=== PATIENT | female | born 1985 | race Caucasian/White ===

== ENCOUNTER → 2020-12-12 08:03 | Outpatient (BNVA) | payer MEDICAID, SELFPAY | PROVIDERS: Family Provider Family Medicine; PCP Family Medicine; Visit Provider Psychiatry & Neurology Psychiatry | DX: F41.1 Generalized anxiety disorder (principal); F33.1 Major depressive disorder, recurrent, moderate; F17.200 Nicotine dependence, unspecified, uncomplicated; F10.10 Alcohol abuse, uncomplicated | CPT/HCPCS: 99204 ==

== ENCOUNTER → 2021-01-30 10:28 | Outpatient (BNVA) | payer MEDICAID, SELFPAY | PROVIDERS: Family Provider Family Medicine; PCP Family Medicine; Visit Provider Psychiatry & Neurology Psychiatry | DX: F33.1 Major depressive disorder, recurrent, moderate (principal); F41.1 Generalized anxiety disorder; F10.10 Alcohol abuse, uncomplicated; F17.200 Nicotine dependence, unspecified, uncomplicated | CPT/HCPCS: 99214 ==

== ENCOUNTER → 2021-02-15 15:40 | Outpatient (BNVA) | payer OTHER, SELFPAY | PROVIDERS: Family Provider Family Medicine; PCP Family Medicine; Visit Provider Psychiatry & Neurology Psychiatry | DX: F33.1 Major depressive disorder, recurrent, moderate (principal); F41.1 Generalized anxiety disorder; F17.200 Nicotine dependence, unspecified, uncomplicated; F10.10 Alcohol abuse, uncomplicated | CPT/HCPCS: 99214 ==

== ENCOUNTER → 2021-02-19 11:28 | Outpatient (BNVA) | payer OTHER, SELFPAY | PROVIDERS: Family Provider Family Medicine; PCP Family Medicine; Visit Provider Psychiatry & Neurology Psychiatry | DX: F33.1 Major depressive disorder, recurrent, moderate (principal); F41.1 Generalized anxiety disorder; F10.10 Alcohol abuse, uncomplicated; F17.200 Nicotine dependence, unspecified, uncomplicated | CPT/HCPCS: 96372; 99213 ==

== ENCOUNTER → 2021-03-22 10:55 | Outpatient (BNVA) | payer OTHER, SELFPAY | PROVIDERS: Family Provider Family Medicine; PCP Family Medicine; Visit Provider Psychiatry & Neurology Psychiatry | DX: F33.1 Major depressive disorder, recurrent, moderate (principal); F41.1 Generalized anxiety disorder; F10.10 Alcohol abuse, uncomplicated; F17.200 Nicotine dependence, unspecified, uncomplicated | CPT/HCPCS: 96372; 99213 ==

== ENCOUNTER → 2021-05-02 10:24 | Outpatient (BNVA) | payer OTHER, SELFPAY | PROVIDERS: Family Provider Family Medicine; PCP Family Medicine; Visit Provider Psychiatry & Neurology Psychiatry | DX: F33.1 Major depressive disorder, recurrent, moderate (principal); F41.1 Generalized anxiety disorder; F10.10 Alcohol abuse, uncomplicated; F17.200 Nicotine dependence, unspecified, uncomplicated | CPT/HCPCS: 96372; 99214 ==

== ENCOUNTER → 2021-05-21 13:18 | Outpatient (BNVA) | payer OTHER, SELFPAY | PROVIDERS: Family Provider Family Medicine; PCP Family Medicine; Visit Provider Psychiatry & Neurology Psychiatry | DX: F10.10 Alcohol abuse, uncomplicated (principal) | CPT/HCPCS: 80053; 84443; 85025 ==

== ENCOUNTER → 2021-06-04 10:15 | Outpatient (BNVA) | payer OTHER, SELFPAY | PROVIDERS: Family Provider Family Medicine; PCP Family Medicine; Visit Provider Psychiatry & Neurology Psychiatry | DX: F10.10 Alcohol abuse, uncomplicated (principal) | CPT/HCPCS: 96372; 99214 ==

== ENCOUNTER → 2021-07-05 10:02 | Outpatient (BNVA) | payer OTHER, SELFPAY | PROVIDERS: Family Provider Family Medicine; PCP Family Medicine; Visit Provider Psychiatry & Neurology Psychiatry | DX: F33.1 Major depressive disorder, recurrent, moderate (principal); F41.1 Generalized anxiety disorder; F10.10 Alcohol abuse, uncomplicated; F17.200 Nicotine dependence, unspecified, uncomplicated | CPT/HCPCS: 96372; 99213 ==

== ENCOUNTER 2021-07-10 15:20 | Outpatient (CLI) | payer MEDICAID, SELFPAY ==
--- NOTE | 2021-07-10 15:30 | US_ITS ---
WS: [id number] TRANSVAGINAL PELVIC ULTRASOUND HISTORY: HSIL ON CYSTOLOGIC SMEAR OR CERVIX COMPARISON: None available. Uterus: 7.0 cm x 4.8 cm x 3.8 cm. Normal size anteverted uterus. No fibroid or mass. Small nabothian cysts. Endometrium: 0.4 cm. Normal size endometrium. Very mild heterogeneity within the endometrium. There a re a few small adjacent calcifications. No mass. Right ovary: 3.7 cm x 4.1 cm x 2.0 cm. Mildly enlarged ovary with a minimally complex cyst. The cyst measures 2.8 x 3.3 x 1.5 cm. There are a few septations within the cyst. Left ovary: 2.0 cm x 1.4 cm x 2.1 cm. Normal size and vascularity, no cystic or solid masses. No free fluid. US/US transvaginal [id number] IMPRESSION: 1. Mildly heterogeneous endometrium but no mass. 2. Minimally complex RIGHT ovarian cyst measures 2.8 x 3.3 x 1.5 cm.
== END 2021-07-10 15:21 | disposition home or self-care (01) ==
LOC: US 15:21
PROVIDERS: PCP Family Medicine; Visit Provider Obstetrics & Gynecology
DX: N93.9 Abnormal uterine and vaginal bleeding, unspecified (principal); N83.201 Unspecified ovarian cyst, right side
CPT/HCPCS: 76830; 93976

== ENCOUNTER → 2021-08-02 11:12 | Outpatient (BNVA) | payer OTHER, MEDICAID, SELFPAY | PROVIDERS: PCP Family Medicine; Visit Provider Psychiatry & Neurology Psychiatry | DX: F33.1 Major depressive disorder, recurrent, moderate (principal); F41.1 Generalized anxiety disorder; F10.10 Alcohol abuse, uncomplicated; F17.200 Nicotine dependence, unspecified, uncomplicated | CPT/HCPCS: 96372; 99213 ==

== ENCOUNTER 2021-08-15 10:59 | Emergency (ER) | payer MEDICAID, SELFPAY ==
[2021-08-15 11:24] VITALS: BP 130/89; PULSE 99; RESP 16; TEMP 37.1; O2SAT 99
--- NOTE | 2021-08-15 11:34 | US_ITS ---
WS: [id number] ULTRASOUND PELVIS TECHNIQUE: Transabdominal and transvaginal. ULTRASOUND PELVIS LMP August 09, 2021 TECHNIQUE: Transabdominal. CLINICAL INFORMATION: eval for vag bleeding/ hx of cervical cancer COMPARISON: July 10, 2021 FINDINGS: Uterus Orientation: Anteverted. Size: 7.0 cm x 4.4 cm x 3.0 cm. Masses: None. Cervix: 2.4 cm. Endometrium: Normal. Endometrium thickness: 4.9 mm Adnexa: Multifollicular ovaries bilaterally. Right ovary size: cm x 3.1 cm x 2.8 cm. Left ovary size: 2.9 cm x 1.3 cm x 2.7 cm. Free fluid: None. Other findings: None. US/US pelvic with transvaginal IMPRESSION: 1. Normal uterus and endometrium. Endometrium measures 4.9 mm. 2. Incidental nabothian cysts in the cervix. 3. Both ovaries are normal in appearance. 4. No free fluid in the cul-de-sac.
--- NOTE | 2021-08-15 11:46 | W.ED.GENADLT ---
HPI - General Adult General: Chief complaint: Abdominal Pain Stated complaint: OVARIAN CYST RUPTURE/BLOODY URINE/N,V Time Seen by Provider: 08/15/21 11:29 History of Present Illness: HPI narrative: Patient is a 36-year-old female with a history of previously diagnosed R ovarian cyst, cervical cancer presenting to the emergency room with concerns of right-sided pelvic pain, vaginal bleeding, nausea/vomiting x5 days. Patient tells me that her period started around . Since then, patient has had right side of pelvic pain. Patient has noticed a new vaginal discharge. Currently not sexually active. Denies any foul-smelling discharge, hematuria/polyuria/history of pyelonephritis, prior history of kidney stones. Patient does not think that she is currently . Not currently sexually active. Since the onset of symptoms, patient has noticed decreased urine production and decreased p.o. intake. Denies any cough, runny nose, sore throat, malaise, generalized weakness, shortness of breath, chest pain, or palpitation or lightheadedness., Patient was found to have pelvic cyst on ultrasound in June. Patient had a recent biopsy done on 07/24/2020 one of her cervix which showed reemergence of low grade cervical acner. Onset:5 days ago Duration:5 days Location:home Severity:moderate Review of Systems Narrative: Constitutional: No fever, no chills. HEENT: No vision changes CV: No chest pain, no palpitations PULM: no cough, no dyspnea. GI: No abdominal pain, no N/V/D. : No dysuria, +R sided pelvic pain, +new vaginal discharge, +vaginal bleeding MSKEL: No muscle pain SKIN: No new rashes, no lesions. NEURO: No headache, no focal weakness. HEME: No visible bruises PSYCH: Normal mood PFSH ED PFSH: Medical History (Updated 08/15/21 @ 13:36 by Aniya Ribera MD) Psychiatric care Social History (Updated 12/12/20 @ 08:48 by Fermín Klein LPN) Smoking and tobacco status: current every day smoker cigarettes Packs smoked per day: 0.15 Years cigarettes smoked: 17 Quit status (tobacco): has tried quititng Number of times tried to quit tobacco: 4 Second hand smoke exposure: No Physical Exam Narrative: EXAM NARRATIVE: Head: Atraumatic Eyes: PERRL, conjunctiva without injection ENT: Mucous membrane moist NECK: Supple, ROM intact LUNGS: LCTAB, no crackles/rhonchi CV: RRR ABDOMEN: Soft, nontender in all quadrants EXTREMITY: Normal ROM SKIN: No rash or erythema NEURO: Awake and alert, no focal motor deficits PSYCH: Normal mood and affect Exam: Exam supervised by Nani. External genitalia wnl. No erythema around cervical os, os closed, +thick discharge oozing from the cervix, no bleeding. No CMT, +R adnexal tendernes, Course Vital Signs: Vital signs: Vital Signs Temperature 98.7 F 08/15/21 11:24 Pulse Rate 78 08/15/21 15:41 Respiratory Rate 16 08/15/21 13:00 Blood Pressure 124/76 08/15/21 15:41 Pulse Oximetry 96 08/15/21 15:41 MDM - General Adult MDM Narrative: Medical decision making narrative: 36-year-old female presenting to emergency room with complaints of pelvic pain, vaginal bleeding, nausea/vomiting x5 days. WBC of 6.1, hemoglobin 13.7. Potassium 2.7 status post repletion with IV potassium 2x 40 mEq of p.o. potassium. Vaginal ultrasound did not show any signs of any acute pathology including ovarian torsion, or acute pelvic inflammatory disease. At time, do not suspect patient has any intra-abdominal infection or surgical abdominal pathologies given normal WBC, normal abd exam, USER SUPPORT ANALYST SUPERVISOR symptoms no other focal complaints. I have given patient follow up with our rehabilitation caseworker to be seen by our outpatient USER SUPPORT ANALYST SUPERVISOR provider for evaluation of R sided pelvic pain. Patient aware of a call from our rehabilitation caseworker to schedule for appointment(s) and verbalizes understanding of the importance of following up. Rx zofran PRN nausea/vomiting, tylenol PRN pain Disposition: Discharge. Patient counseled regarding diagnostic impression, treatment plan. Patient given ED strict return precautions to return for continuation, worsening, or development of new symptoms. Instructed to f/u w/ PCP regarding symptoms today. Patient verbalized understanding. Lab Data: Labs: Lab Results 08/15/21 08/15/21 08/15/21 12:00 12:00 12:00 WBC 6.1 10^3/uL 10^3/ uL (4.0-10.0) RBC 4.65 10^6/uL 10^6 /uL (4.1-5.3) Hgb 13.7 g/dL g/dL (11.5-15.3) Hct 39.9 % % (37.0-47.0) MCV 85.8 fl fl (81-99) MCH 29.5 pg pg (28.0-34.0) MCHC 34.3 g/dL g/dL (30.0-36.0) RDW 13.9 % % (12.1-15.1) Plt Count 222 10^3/cmm 10^3 /cmm (130-400) MPV 11.7 fL H fL (7.4-10.4) Neut % (Auto) 65.5 % % Lymph % (Auto) 21.9 % % Sampson % (Auto) 11.2 % % Eos % (Auto) 0.3 % % Baso % (Auto) 0.8 % % Neut # (Auto) 3.96 10^3/uL 10^3 /uL (1.8-7.7) Lymph # (Auto) 1.3 10^3/uL 10^3/ uL (0.8-4.8) Sampson # (Auto) 0.7 10^3/uL 10^3/ uL (0.2-0.9) Eos # (Auto) 0.0 10^3/uL 10^3/ uL (0.0-0.8) Baso # (Auto) 0.1 10^3/uL 10^3/ uL (0.0-0.1) Nucleated RBC % (a uto) 0 % % Nucleated RBCs # 0.0 /100WBC /100W BC PT INR APTT Sodium Cancelled Potassium Cancelled Chloride Cancelled Carbon Dioxide Cancelled Anion Gap Cancelled BUN Cancelled Creatinine Cancelled GFR Calculation Cancelled Glucose Cancelled Calculated Osmolal ity Cancelled Calcium Cancelled Total Bilirubin Cancelled AST Cancelled ALT Cancelled Alkaline Phosphata se Cancelled Total Protein Cancelled Albumin Cancelled Globulin Cancelled Lipase Cancelled Urine Color Urine Appearance Urine pH Ur Specific Gravit y Urine Protein Urine Glucose (UA) Urine Ketones Urine Blood Urine Nitrate Urine Bilirubin Urine Urobilinogen Ur Leukocyte Babs ase Urine HCG, Qual Negative (Negative) 08/15/21 08/15/21 08/15/21 12:00 12:20 12:43 WBC RBC Hgb Hct MCV MCH MCHC RDW Plt Count MPV Neut % (Auto) Lymph % (Auto) Sampson % (Auto) Eos % (Auto) Baso % (Auto) Neut # (Auto) Lymph # (Auto) Sampson # (Auto) Eos # (Auto) Baso # (Auto) Nucleated RBC % (a uto) Nucleated RBCs # PT 13.70 SECONDS SEC ONDS (12.1-14.9) INR 1.02 (0.8-1.2) APTT 22.7 SECONDS L SE CONDS (23.9-36.7) Sodium 136 mmol/L mmol/L (136-145) Potassium 2.7 mmol/L L* mmo l/L (3.5-5.1) Chloride 97 mmol/L L mmol/ L (98-107) Carbon Dioxide 27 mmol/L mmol/L (22-29) Anion Gap 14.7 (5-19) BUN 15 mg/dL mg/dL (6-20) Creatinine 0.4 mg/dL L mg/dL (0.5-0.9) GFR Calculation 179.6 mL/min H mL /min (90-130) Glucose 85 mg/dL mg/dL (65-115) Calculated Osmolal ity 282 mOsm/kg L mOs m/kg (285-295) Calcium 7.9 mg/dL L mg/dL (8.5-10.5) Total Bilirubin 0.6 mg/dL mg/dL (0.15-1.2) AST 24 U/L U/L (0-32) ALT 15 U/L U/L (0-33) Alkaline Phosphata se 80 IU/L IU/L (35-105) Total Protein 6.1 g/dL L g/dL (6.6-8.7) Albumin 3.9 g/dL g/dL (3.5-5.2) Globulin 2.2 g/dL g/dL (1.3-4.6) Lipase 16 U/L U/L (13-60) Urine Color Yellow (Yellow) Urine Appearance Clear (CLEAR) Urine pH 9 H (5-7) Ur Specific Gravit y 1.010 (1.005-1.030) Urine Protein Neg (Negative) Urine Glucose (UA) Norm (Normal) Urine Ketones Negative (Negative) Urine Blood Neg (Negative) Urine Nitrate Negative (Negative) Urine Bilirubin Neg (Negative) Urine Urobilinogen 4 mg/dL H mg/dL (Negative) Ur Leukocyte Babs ase Negative (Negative) Urine HCG, Qual Imaging Data^: Other Imaging: Radiologist's impression: [id number] [place], [place] [id number] ReportSigned Patient: Stephanie Molina AUnit #: [id number]: [id number]#:[id number]/Sex: 36 / FADM Date: 08/15/21Loc: ERRoom/Bed:Attending Dr: Ordering Provider/Ordering MD: Aniya Ribera MD Date of Service: 08/15/21 Procedure(s): US pelvic with transvaginal Accession Number(s): [id number] Report Number: [id number] WS: [id number] ULTRASOUND PELVIS TECHNIQUE: Transabdominal and transvaginal. ULTRASOUND PELVIS LMP August 09, 2021 TECHNIQUE: Transabdominal. CLINICAL INFORMATION: eval for vag bleeding/ hx of cervical cancer COMPARISON: July 10, 2021 FINDINGS: Uterus Orientation: Anteverted. Size: 7.0 cm x 4.4 cm x 3.0 cm. Masses: None. Cervix: 2.4 cm. Endometrium: Normal. Endometrium thickness: 4.9 mm Adnexa: Multifollicular ovaries bilaterally. Right ovary size: cm x 3.1 cm x 2.8 cm. Left ovary size: 2.9 cm x 1.3 cm x 2.7 cm. Free fluid: None. Other findings: None. US/US pelvic with transvaginal IMPRESSION: 1. Normal uterus and endometrium. Endometrium measures 4.9 mm. 2. Incidental nabothian cysts in the cervix. 3. Both ovaries are normal in appearance. 4. No free fluid in the cul-de-sac. Dictated By:Jack Jesus MDSigned By:Jack Jesus MDSigned Date/Time:08/15/21 1546DD/ 154 Discharge Plan Discharge Patient Disposition: Home Clinical Impression: Pelvic pain, Hypokalemia Condition: Stable Prescriptions: New Zofran 4 mg tablet 4 mg PO TID PRN (Reason: nausea and vomiting) 4 Days Qty: 12 RF: 0 acetaminophen 500 mg tablet 500 mg PO Q6H PRN (Reason: pain) 5 Days Qty: 20 RF: 0 No Action montelukast 10 mg tablet 10 mg PO DAILY RF: 0 meloxicam 15 mg tablet 15 mg PO DAILY RF: 0 Flovent HFA 220 mcg/actuation HFA aerosol inhaler 1 puff inhalation BID RF: 0 celecoxib 200 mg capsule 200 mg PO BID RF: 0 cyclobenzaprine 10 mg tablet 10 mg PO BID PRN (Reason: muscle spasm) RF: 0 Combivent Respimat 20-100 mcg/actuation mist 1 puff inhalation QID PRNRF: 0 Vivitrol 380 mg suspension,extended rel recon 380 mg IM .monthly Qty: 1 RF: 2 propranolol 10 mg tablet 10 mg PO BID PRN (Reason: anxiety) Qty: 60 RF: 2 trazodone 100 mg tablet 200 mg PO .HS PRN (Reason: insomnia) Qty: 60 RF: 2 hydroxyzine HCl 50 mg tablet 50 mg PO QID PRN (Reason: anxiety) Qty: 120 RF: 2 fluoxetine [Prozac] 40 mg capsule 40 mg PO DAILY Qty: 30 RF: 2 clonidine HCl 0.1 mg tablet 0.1 mg PO DAILY Qty: 30 RF: 2 bupropion HCl [Wellbutrin XL] 300 mg tablet extended release 24 hr 300 mg PO QAM Qty: 30 RF: 2 gabapentin 400 mg capsule 400 mg PO TID Qty: 90 RF: 2 Discharge Orders: Discharge ED (Routine); Ordered 08/15/21 Ordered By: Aniya Ribera Referrals: Adrienne Malin DO [Primary Care Provider] - Discharge Diet: Advance as tolerated Discharge Activity: Resume usual activity Patient Instructions: Hypokalemia (ED) Activity Restrictions/Additional Instructions: Please follow-up with a USER SUPPORT ANALYST SUPERVISOR doctor for further evaluation of your symptoms. Please follow-up with a primary care provider for evaluation of your low potassium level. Our rehabilitation caseworker will have you follow-up with USER SUPPORT ANALYST SUPERVISOR provider in the next few days. You would be expected to have a phone call with our rehabilitation caseworker who will put you on the schedule. Come back to the emergency room if your pain is worse, had new discharge, fever/chills, any new or concerning complaints. Coding Level of Care Code ED Frame Trimmer for Shelbie eMrrill
[2021-08-15 12:05] LABS: Add Urine Microscopic? NO; Charge for UA Resulting for Rev
[2021-08-15 12:10] LABS: Basophils # 0.1 10^3/uL (0.0-0.1); Basophils % 0.8 %; Eosinophils % 0.3 %; Hematocrit 39.9 % (37.0-47.0); Hemoglobin 13.7 g/dL (11.5-15.3); Lymphocytes # 1.3 10^3/uL (0.8-4.8); Lymphocytes % 21.9 %; Mean Corpuscular HGB Conc 34.3 g/dL (30.0-36.0); Mean Corpuscular Hemoglobin 29.5 pg (28.0-34.0); Mean Corpuscular Volume 85.8 fl (81-99); Mean Platelet Volume 11.7 fL (7.4-10.4); Monocytes # 0.7 10^3/uL (0.2-0.9); Monocytes % 11.2 %; Neutrophils # 3.96 10^3/uL (1.8-7.7); Neutrophils % 65.5 %; Nucleated Red Blood Cells % 0 %; Platelet Count 222 10^3/cmm (130-400); Red Blood Count 4.65 10^6/uL (4.1-5.3); Red Cell Distribution Width 13.9 % (12.1-15.1); White Blood Count 6.1 10^3/uL (4.0-10.0)
[2021-08-15 12:17] LABS: Bilirubin Urine Neg (Negative); Blood Urine Neg (Negative); Glucose Urine UA Norm (Normal); Ketones Urine Negative (Negative); Leukocyte Esterase Urine Negative (Negative); Nitrate Urine Negative (Negative); Protein Urine Neg (Negative); Urine Appearance Clear (CLEAR); Urine Color Yellow (Yellow); Urobilinogen Urine 4 mg/dL (Negative); pH Urine 9 (5-7)
[2021-08-15] MEDS: ondansetron 2 mg/ML SDV 2 mL 4 MG IVP (12:30)
[2021-08-15] MEDS: acetaminophen 500 mg Tablet PO (12:30)
[2021-08-15] MEDS: sodium chloride 0.9% 1,000 ML 999 ML IV (12:30)
[2021-08-15 12:37] LABS: INR 1.02 (0.8-1.2)
[2021-08-15 12:38] LABS: Partial Thromboplastin Time 22.7 SECONDS (23.9-36.7)
[2021-08-15 13:00] VITALS: BP 127/86; PULSE 87; RESP 16; O2SAT 98
[2021-08-15 13:23] LABS: Alanine Aminotransferase 15 U/L (0-33); Albumin Level 3.9 g/dL (3.5-5.2); Alkaline Phosphatase 80 IU/L (35-105); Anion Gap 14.7 (5-19); Aspartate Amino Transferase 24 U/L (0-32); Blood Urea Nitrogen 15 mg/dL (6-20); Calcium 7.9 mg/dL (8.5-10.5); Carbon Dioxide 27 mmol/L (22-29); Chloride 97 mmol/L (98-107); Globulin 2.2 g/dL (1.3-4.6); Glomerular Filtration Rate 179.6 mL/min (90-130); Glucose 85 mg/dL (65-115); Lipase 16 U/L (13-60); Osmolality Calculated 282 mOsm/kg (285-295); Sodium 136 mmol/L (136-145); Total Bilirubin 0.6 mg/dL (0.15-1.2); Total Protein 6.1 g/dL (6.6-8.7)
[2021-08-15 13:32] LABS: Potassium 2.7 mmol/L (3.5-5.1)
[2021-08-15] MEDS: potassium chloride ER 20 mEq Tablet 40 MEQ PO ×2 (14:16)
[2021-08-15] MEDS: potassium chloride ER 10 mEq Tablet PO (14:16)
[2021-08-15 15:41] VITALS: BP 124/76; PULSE 78; O2SAT 96
--- NOTE | 2021-08-15 15:53 | DCPLANNER ---
winter sports manager had message to schedule a follow up appointment for patient with [facility]. winter sports manager called the [facility], spoke with Prieto, gave clinic patients information. winter sports manager was told that patients information would be printed and reviewed. Clinic will call patient with appointment information.
--- NOTE | 2021-08-29 07:54 | DCPLANNER ---
Addendum entered by Pippa Cazares 10/11/21 13:35: Patient had a follow up appointment scheduled with [facility] - patient did not attend appointment. Original Note: Patient has a follow up appointment scheduled for Monday, September 20, 2021 at 2:[address] Riggs at [facility]. Clinic will call patient with appointment information.
== END 2021-08-15 15:43 | disposition home or self-care (01) ==
PROVIDERS: Emergency Provider Emergency Medicine; PCP Family Medicine
DX: R10.2 Pelvic and perineal pain (principal); E87.6 Hypokalemia; F17.210 Nicotine dependence, cigarettes, uncomplicated
CPT/HCPCS: 76830; 76856; 80053; 81003; 81025; 83690; 85025; 85610; 85730; 87081; 87086; 87205; 87210; 96361; 96374; 99284; J2405; J7030

== ENCOUNTER → 2021-09-03 09:04 | Outpatient (BNVA) | payer OTHER, MEDICAID, SELFPAY | PROVIDERS: PCP Family Medicine; Visit Provider Psychiatry & Neurology Psychiatry | DX: F33.1 Major depressive disorder, recurrent, moderate (principal); F41.1 Generalized anxiety disorder; F10.10 Alcohol abuse, uncomplicated; F17.200 Nicotine dependence, unspecified, uncomplicated | CPT/HCPCS: 99214 ==

== ENCOUNTER → 2021-10-08 10:13 | Outpatient (BNVA) | payer OTHER, MEDICAID, SELFPAY | PROVIDERS: PCP Family Medicine; Visit Provider Psychiatry & Neurology Psychiatry | DX: F41.1 Generalized anxiety disorder (principal); F33.1 Major depressive disorder, recurrent, moderate; F10.10 Alcohol abuse, uncomplicated; F17.200 Nicotine dependence, unspecified, uncomplicated | CPT/HCPCS: 99213 ==

== ENCOUNTER → 2021-10-14 16:08 | Outpatient (BNVA) | payer OTHER, MEDICAID, SELFPAY | PROVIDERS: PCP Family Medicine; Visit Provider Obstetrics & Gynecology | DX: N93.9 Abnormal uterine and vaginal bleeding, unspecified (principal) | CPT/HCPCS: 88305 ==

== ENCOUNTER → 2021-10-18 09:23 | Outpatient (BNVA) | payer MEDICAID, SELFPAY | PROVIDERS: PCP Family Medicine; Visit Provider Obstetrics & Gynecology | DX: Z20.822 Contact with and (suspected) exposure to COVID-19 (principal); N93.9 Abnormal uterine and vaginal bleeding, unspecified; R10.2 Pelvic and perineal pain | CPT/HCPCS: 87635 ==

== ENCOUNTER 2021-10-22 08:44 | Day surgery (SDC) | payer MEDICAID, SELFPAY ==
[2021-10-21 12:53] VITALS: BMI 20.5
[2021-10-22] VITALS (12 sets, daily range): BP systolic 94–139; BP diastolic 8–94; PULSE 72–108; RESP 18; TEMP 36–36.7; O2SAT 97–100
[2021-10-22] MEDS: sodium chloride 0.9% 1,000 ML 30 ML IV (09:21)
[2021-10-22] MEDS: ketorolac 30 mg/mL INJ IVP (09:23)
--- NOTE | 2021-10-22 09:25 | P.ANESASSM_ITS ---
Pre-Anesthetic Assessment Height/Weight: Height 1.45 m Weight 43.091 kg Temp Pulse Resp BP Pulse Ox 98.1 F 86 18 122/8 97 10/22/21 09:04 10/22/21 09:04 10/22/21 09:04 10/22/21 09:04 10/22/21 09:04 Preop Diagnosis: AUB Operation Date: 10/22/21 10:25 Proposed Procedures p Hysteroscopy w/ Myosure 09291/33378/n93.9/r10.2(Not Applicable) - Yanna Riggs MD s Dilation And Curettage (D&C)(Not Applicable) - Yanna Riggs MD Familial anesthetic complications: None Was Beta Maurice taken within 24 hours: Yes Was Clonidine taken within 24 hours: Yes Last intake: Intake Last Liquid Date 10/21/21 Last Liquid Time 18:45 Last Solid Date 10/21/21 Last Solid Time 18:45 Social Tobacco and No alcohol Exam alert, oriented x 3 and regular rate & rhythm Airway Submandibular: within normal limits Cervical ROM: within normal limits Mallampati: Class II Dentition: chipped Comments: Comments: Poor, multiple caries Pulmonary Asthma and Chronic Obstructive Pulmonary Disease [facility] Fibromyalgia Neuropsych Anxiety, Depression and Headache Anesthetic Plan ASA status: 3 Anesthesia: General Risk of > 500 ml blood loss (7ml/kg in children): No Medications/Allergies Home Medications Medication Instructions Recorded Confirmed Last Taken Type celecoxib 200 mg capsule 200 mg PO BID 12/12/20 10/22/21 10/21/21 History cyclobenzaprine 10 mg tablet 10 mg PO BID PRN tab 12/12/20 10/22/21 10/21/21 History fluticasone propionate 220 1 puff INHALATION BID 12/12/20 10/22/21 10/21/21 History mcg/actuation HFA aerosol inhaler (Flovent HFA) ipratropium 20 mcg-albuterol 100 1 puff INHALATION QID PRN 12/12/20 10/22/21 10/21/21 History mcg/actuation mist for inhalation (Combivent Respimat) meloxicam 15 mg tablet 15 mg PO DAILY 12/12/20 10/22/21 10/20/21 History montelukast 10 mg tablet 10 mg PO DAILY 12/12/20 10/22/2110/21/22 History gabapentin 400 mg capsule 400 mg PO TID #90 cap 05/02/21 10/22/21 10/21/21 Rx bupropion HCl 300 mg 24 hr tablet, 300 mg PO QAM #30 tab 09/03/21 10/22/21 10/21/21 Rx extended release (Wellbutrin XL) clonidine HCl 0.1 mg tablet 0.1 mg PO DAILY #30 tab 09/03/21 10/22/21 10/21/21 Rx fluoxetine 40 mg capsule (Prozac) 40 mg PO DAILY #30 cap 09/03/21 10/22/21 10/21/21 Rx hydroxyzine HCl 50 mg tablet 50 mg PO QID PRN #120 tab 09/03/21 10/22/21 10/21/21 Rx vitamin with calcium 1 tab PO DAILY 09/03/21 10/22/21 10/21/21 History no.72-iron 27 mg-folic acid 1 mg tablet (M- Plus) propranolol 10 mg tablet 10 mg PO BID PRN #60 tab 09/03/21 10/22/21 10/21/21 Rx trazodone 100 mg tablet 200 mg PO .HS PRN #60 tab 09/03/21 10/22/21 10/21/21 Rx medroxyprogesterone 150 mg/mL 150 mg IM .Q 3 months ml 10/08/21 10/21/21 09/27/21 History intramuscular suspension (Depo-Provera) Allergies Allergy/AdvReac Type Severity Reaction Status Date / Time No Known Allergies Allergy Verified 10/22/21 08:57 Current Medications Generic Name Dose Route Start Last Admin Trade Name Freq PRN Reason Stop Dose Admin Sodium Chloride 1,000 mls @ 30 mls/hr 10/22/21 09:00 10/22/21 09:21 Sodium Chloride 0.9% IV 10/23/21 08:59 30 mls/hr .Q24H NATANAEL Administration PFSH Anesthesia Medical History Allergies Asthma Fibromyalgia History of ovarian cyst PCOS (polycystic ovarian syndrome) Psychiatric care Rheumatoid arthritis Surgical History History of colonoscopy History of hernia repair History of loop electrical excision procedure (LEEP) History of rotator cuff surgery right arm Family History Mother CAD (coronary artery disease) Father Cancer agent orange Denies family history of Diabetes Clotting disorder Hyperlipidemia Chronic kidney disease (CKD) Bleeding disorder Hypertension Thyroid disease Stroke Social History Smoking and tobacco status: current every day smoker cigarettes Packs smoked per day: 1 Years cigarettes smoked: 18 Quit status (tobacco): has tried quititng Number of times tried to quit tobacco: 4 Second hand smoke exposure: No Female Reproductive History Date of last menstrual period: 10/03/21 Data Anesthesia Cardiac Studies: No Data to Display
[2021-10-22 09:28] LABS: OR HCG Qualitative Urine Negative (Negative)
--- NOTE | 2021-10-22 09:40 | W.PM.OPSUD ---
Surgery/Procedure H&P Update DATE OF PROCEDURE: October 22, 2021 DATE H&P PERFORMED: 10/18/21 H&P UPDATE INFORMATION: I have reviewed H&P completed within last 30 days, I have examined patient prior to procedure and No changes to prior documentation PREOP DIAGNOSIS: AUB PLANNED PROCEDURE: Operation Date: 10/22/21 10:25 Proposed Procedures p Hysteroscopy w/ Myosure 55288/16606/n93.9/r10.2(Not Applicable) - Yanna Riggs MD s Dilation And Curettage (D&C)(Not Applicable) - Yanna Riggs MD Related Problem List Diagnoses (1) Abnormal uterine bleeding (AUB):
--- NOTE | 2021-10-22 10:30 | PM.OP ---
Operative Report Date of procedure: October 22, 2021 Pre-op diagnosis: Preop Diagnosis AUB Post-op diagnosis: same Post-op findings: 7 week sized uterus, normal appearing endometrium Procedure done: hysteroscoy, dilation and curettage with myosure Specimens removed/disposition: endometrial curettings to pathology Surgeon: Yanna Riggs Anesthesia: MAC Estimated blood loss (mL): 5 IV fluids (mL): 300 Complications: none Findings: 7 week sized uterus 200 ml deficit Procedure: The patient was taken to the operating room where monitored anesthesia was administered and to be adequate. She was prepped and draped in the normal sterile fashion in the dorsal lithotomy position in [facility]. A weighted speculum was placed into the vagina and the anterior lip of the cervix grasped with a single-tooth tenaculum. The uterus was sounded to 7 cm. The cervix was dilated to 17 Mongolian. The hysteroscope was advanced into the endometrial cavity. There was [ ] visualized. The MyoSure device was activated and the tissue was removed. Pictures were taken pre and post procedure. All instruments were removed. The patient tolerated the procedure well. Sponge lap and needle counts were correct x3. She was taken to the recovery room in stable condition.
--- NOTE | 2021-10-22 10:35 | PM.DCS ---
Discharge Providers Date of Admission: 10/22/21 Date of Discharge: October 22, 2021 Attending Provider at Admission: Dr. Keely LIGHT Attending Provider at Discharge: Yanna Riggs MD Primary Care Provider: Adrienne Malin DO Diagnoses at Discharge Discharge Diagnosis (1) Abnormal uterine bleeding (AUB): Status: Acute Reason for Visit Reason for Visit: abnormal uterine bleeding, pelvic pain Hospital Course Hospital Course The patient was admitted for surgery. She did well postoperatively and was ready for discharge after procedure. Discharge Data Studies Completed and Pending Pending at discharge Category Date Time Status ES surgery / GI images Routine Exams 10/22/21 09:18 Ordered Laboratory Results Urine HCG, Qual Negative (Negative) 10/22/21 09:27 Vitals Last Vital Signs Temp 98.1 F 10/22/21 09:04 Pulse 86 10/22/21 09:04 Resp 18 10/22/21 09:04 BP 122/8 10/22/21 09:04 Pulse Ox 97 10/22/21 09:04 Discharge Plan Discharge Condition: Stable Prescriptions: Continued montelukast 10 mg tablet 10 mg PO DAILY 0RF meloxicam 15 mg tablet 15 mg PO DAILY 0RF Flovent HFA 220 mcg/actuation HFA aerosol inhaler 1 puff inhalation BID 0RF celecoxib 200 mg capsule 200 mg PO BID 0RF cyclobenzaprine 10 mg tablet 10 mg PO BID PRN (Reason: muscle spasm) 0RF Combivent Respimat 20-100 mcg/actuation mist 1 puff inhalation QID PRN (Reason: shortness of breath) 0RF Rx Instructions: space evenly during waking hours medroxyprogesterone [Depo-Provera] 150 mg/mL suspension 150 mg IM .Q 3 months 0RF gabapentin 400 mg capsule 400 mg PO TID Qty: 90 2RF M- Plus 27 mg iron- 1 mg tablet 1 tab PO DAILY 0RF trazodone 100 mg tablet 200 mg PO .HS PRN (Reason: insomnia) Qty: 60 2RF propranolol 10 mg tablet 10 mg PO BID PRN (Reason: anxiety) Qty: 60 2RF hydroxyzine HCl 50 mg tablet 50 mg PO QID PRN (Reason: anxiety) Qty: 120 2RF fluoxetine [Prozac] 40 mg capsule 40 mg PO DAILY Qty: 30 2RF clonidine HCl 0.1 mg tablet 0.1 mg PO DAILY Qty: 30 2RF bupropion HCl [Wellbutrin XL] 300 mg tablet extended release 24 hr 300 mg PO QAM Qty: 30 2RF Discharge Orders: Discharge Order (Routine); Ordered 10/22/21 Ordered By: Yanna Riggs Discharge Attestations Time Spent in Discharge Care*: less than 30 min Quality Metrics Clinical Quality Measures [ No reported AMI, CVA or VTE this stay] Coding Level of Care Code Acute Chg DC note Diagnoses Abnormal uterine bleeding (AUB) N93.9
--- NOTE | 2021-10-22 10:42 | P.PCN_ITS ---
PACU note Narrative: VSS, Good respiratory effort, report to PAINT ROLLER COVERMAKER Exam: awake
--- NOTE | 2021-10-22 10:42 | PM.PACU ---
PACU note Narrative: VSS, Good respiratory effort, report to BAGGAGE INSPECTOR Exam: awake
[2021-10-22] MEDS: HYDROmorphone 1 mg/mL INJ 1 mL 0.5 MG IVP (10:51)
--- NOTE | 2021-10-22 15:32 | ANE.PACU2 ---
Inpatient post-anesthesia follow up: Airway intact: Yes Vital signs: Temperature 96.8 F Pulse Rate 82 Respiratory Rate 18 Blood Pressure 139/81 Pulse Oximetry 100 Oxygen Delivery Me thod Room Air Oxygen Flow Rate Fraction of Inspir ed Oxygen Hydration adequate: Yes Nausea and vomiting: No Pain level: 2 Mental status: Baseline
== END 2021-10-22 11:51 | disposition home or self-care (01) ==
PROVIDERS: PCP Family Medicine; Visit Provider Obstetrics & Gynecology
PROC: 0UDB8ZZ Extraction of Endometrium, Via Natural or Artificial Opening Endoscopic (ICD-10-PCS; CPT 58558; principal; 2021-10-22 10:15)
PROC: (CPT 58120; 2021-10-22 10:15)
DX: N93.9 Abnormal uterine and vaginal bleeding, unspecified (principal); F17.210 Nicotine dependence, cigarettes, uncomplicated; J44.9 Chronic obstructive pulmonary disease, unspecified; M79.7 Fibromyalgia; F41.9 Anxiety disorder, unspecified; F32.9 Major depressive disorder, single episode, unspecified; E28.2 Polycystic ovarian syndrome; M06.9 Rheumatoid arthritis, unspecified; Z82.49 Family history of ischemic heart disease and other diseases of the circulatory system
CPT/HCPCS: 58558; 81025; 84703; 88305; J0330; J1100; J1170; J1885; J2405; J2704; J3010; J3490; J7030

== ENCOUNTER → 2021-10-30 15:36 | Outpatient (BNVA) | payer MEDICAID, SELFPAY | PROVIDERS: Visit Provider Obstetrics & Gynecology | DX: N83.202 Unspecified ovarian cyst, left side (principal); N88.8 Other specified noninflammatory disorders of cervix uteri | CPT/HCPCS: 76830 ==

== ENCOUNTER → 2021-11-05 13:01 | Outpatient (BNVA) | payer OTHER, MEDICAID, SELFPAY | PROVIDERS: Visit Provider Psychiatry & Neurology Psychiatry | DX: F33.1 Major depressive disorder, recurrent, moderate (principal); F41.1 Generalized anxiety disorder; F10.10 Alcohol abuse, uncomplicated; F17.200 Nicotine dependence, unspecified, uncomplicated | CPT/HCPCS: 99214 ==

== ENCOUNTER 2021-11-19 10:13 | Observation (INO) | payer MEDICAID, SELFPAY ==
[2021-11-18 12:24] VITALS: BMI 21.2
[2021-11-19] VITALS (27 sets, daily range): BP systolic 95–139; BP diastolic 58–118; PULSE 52–123; RESP 14–20; TEMP 36.2–36.8; O2SAT 93–100; BMI 22.7
[2021-11-19] MEDS: phenazopyridine 100 mg Tablet 200 MG PO (06:32)
[2021-11-19] MEDS: gabapentin 300 mg Capsule PO (06:32)
[2021-11-19] MEDS: CELEcoxib 200 mg Capsule 400 MG PO (06:33)
[2021-11-19] MEDS: scopolamine 1.5 Patch 1 PATCH TRANSDERMA (06:33)
[2021-11-19] MEDS: acetaminophen 1,000 MG/100 ML PIGGYBACK 400 MG IV (06:37)
[2021-11-19] MEDS: sodium chloride 0.9% 1,000 ML 30 ML IV (06:37)
[2021-11-19] MEDS: ketorolac 30 mg/mL INJ IVP ×4 (06:49→22:03)
--- NOTE | 2021-11-19 06:52 | ANES.PREANE2 ---
Pre-Anesthetic Assessment Height/Weight: Height 1.45 m Weight 44.452 kg Temp Pulse Resp BP Pulse Ox 97.2 F L 85 16 104/82 100 11/19/21 06:16 11/19/21 06:16 11/19/21 06:16 11/19/21 06:16 11/19/21 06:16 Preop Diagnosis: AUB, adenomyosis, pelvic pain, abnormal pap smear Operation Date: 11/19/21 07:00 Proposed Procedures p Laparoscopic Assist Vaginal Hysterectomy 31889/n80.0(Not Applicable) - Yanna Riggs MD s Laparoscopic Salpingectomy(Bilateral) - Yanna Riggs MD Familial anesthetic complications: None Was Beta Maurice taken within 24 hours: Yes Was Clonidine taken within 24 hours: Yes Last intake: Intake Last Liquid Date 11/18/21 Last Liquid Time 20:00 Last Solid Date 11/18/21 Last Solid Time 18:00 Social Alcohol (ETOH use disorder) and Tobacco Exam alert, oriented x 3, clear to auscultation bilaterally and regular rate & rhythm Airway Submandibular: within normal limits Cervical ROM: within normal limits Mallampati: Class I Dentition: chipped Comments: Comments: Poor dentition Pulmonary Asthma CV/HEM None reported None reported Hepatic None reported GI None reported Metabolic S/P hernia repair [facility] [place] Fibromyalgia Neuropsych Anxiety and Depression Anesthetic Plan ASA status: 2 Anesthesia: Anesthesia Evaluation and General Other: We discussed risk and benefits of general anesthesia including PONV, sore throat (sometimes severe), corneal abrasion, positioning and peripheral nerve injuries, life threatening allergic reaction, post operative ICU admission requiring prolonged intubation, stroke, heart attack, , and rare incidences of recall. Patient consents to proceed with general anesthesia. Risk of > 500 ml blood loss (7ml/kg in children): No Other Pertinent Information Today I conducted a brief goal based motivational smoking cessation intervention with the patient. We discussed the health risk of prolonged tobacco use, as well as the risk of yuniel-operative tobacco use and its impact on wound healing/post-op infections. We discussed various options for cessation including medications PO, patches and gum, counseling. We discussed the value of a quit date. Patient appreciated counseling, all questions answered. Labs pending Medications/Allergies Home Medications Medication Instructions Recorded Confirmed Last Taken Type celecoxib 200 mg capsule 200 mg PO BID 12/12/20 11/19/2111/18/22 History cyclobenzaprine 10 mg tablet 10 mg PO BID PRN tab 12/12/20 11/19/21 11/18/21 History fluticasone propionate 220 1 puff INHALATION BID 12/12/20 11/19/21 11/17/21 History mcg/actuation HFA aerosol inhaler (Flovent HFA) ipratropium 20 mcg-albuterol 100 1 puff INHALATION QID PRN 12/12/20 11/19/21 11/18/21 History mcg/actuation mist for inhalation (Combivent Respimat) meloxicam 15 mg tablet 15 mg PO DAILY 12/12/20 11/19/21 11/17/21 History montelukast 10 mg tablet 10 mg PO DAILY 12/12/20 11/19/21 11/18/21 History gabapentin 400 mg capsule 400 mg PO TID #90 cap 05/02/21 11/19/21 11/18/21 Rx vitamin with calcium 1 tab PO DAILY 09/03/21 11/19/21 11/18/21 History no.72-iron 27 mg-folic acid 1 mg tablet (M-Gertrudis Plus) bupropion HCl 300 mg 24 hr tablet, 300 mg PO QAM #30 tab 11/05/21 11/19/21 11/18/21 Rx extended release (Wellbutrin XL) clonidine HCl 0.1 mg tablet 0.1 mg PO DAILY #30 tab 11/05/21 11/19/21 11/18/21 Rx fluoxetine 40 mg capsule (Prozac) 40 mg PO DAILY #30 cap 11/05/21 11/19/21 11/18/21 Rx hydroxyzine HCl 50 mg tablet 50 mg PO QID PRN #120 tab 11/05/21 11/19/21 11/18/21 Rx naltrexone 50 mg tablet 50 mg PO DAILY #30 tab 11/05/21 11/19/21 11/16/21 Rx propranolol 10 mg tablet 10 mg PO BID PRN #60 tab 11/05/21 11/19/21 11/18/21 Rx trazodone 100 mg tablet 200 mg PO .HS PRN #60 tab 11/05/21 11/19/21 11/18/21 Rx cetirizine 10 mg capsule (All Day 10 mg PO DAILY PRN 11/15/21 11/19/21 11/18/21 History Allergy (cetirizine)) fluticasone propionate 50 1 spray INTRANASAL DAILY 11/15/21 11/19/21 11/18/21 History mcg/actuation nasal spray,suspension (Flonase Allergy Relief) Allergies Allergy/AdvReac Type Severity Reaction Status Date / Time No Known Allergies Allergy Verified 11/18/21 12:21 Current Medications Generic Name Dose Route Start Last Admin Trade Name Joy PRN Reason Stop Dose Admin Sodium Chloride 1,000 mls @ 30 mls/hr 11/19/21 06:00 11/19/21 06:37 Sodium Chloride 0.9% IV 11/20/21 05:59 30 mls/hr .Q24H NATANAEL Administration PFSH Anesthesia Medical History Allergies Asthma Fibromyalgia History of ovarian cyst PCOS (polycystic ovarian syndrome) Psychiatric care Rheumatoid arthritis Surgical History History of colonoscopy History of hernia repair History of loop electrical excision procedure (LEEP) History of rotator cuff surgery right arm Family History Mother CAD (coronary artery disease) Father Cancer agent orange Denies family history of Diabetes Clotting disorder Hyperlipidemia Chronic kidney disease (CKD) Bleeding disorder Hypertension Thyroid disease Stroke Social History Smoking and tobacco status: current every day smoker cigarettes Packs smoked per day: 1 Years cigarettes smoked: 18 Quit status (tobacco): has tried quititng Number of times tried to quit tobacco: 4 Second hand smoke exposure: No Female Reproductive History Date of last menstrual period: 10/03/21 Data Anesthesia : 11/19/21 06:33 11/19/21 06:33 Cardiac Studies: No Data to Display
[2021-11-19 07:02] LABS: OR HCG Qualitative Urine Negative (Negative)
[2021-11-19 07:08] LABS: Basophils % 0.7 %; Eosinophils # 0.2 10^3/uL (0.0-0.8); Eosinophils % 3.5 %; Hematocrit 39.2 % (37.0-47.0); Hemoglobin 13.1 g/dL (11.5-15.3); Lymphocytes # 1.7 10^3/uL (0.8-4.8); Lymphocytes % 27.5 %; Mean Corpuscular HGB Conc 33.4 g/dL (30.0-36.0); Mean Corpuscular Hemoglobin 29.9 pg (28.0-34.0); Mean Corpuscular Volume 89.5 fl (81-99); Mean Platelet Volume 12.3 fL (7.4-10.4); Monocytes # 0.5 10^3/uL (0.2-0.9); Monocytes % 8.8 %; Neutrophils # 3.58 10^3/uL (1.8-7.7); Neutrophils % 59.3 %; Nucleated Red Blood Cells % 0 %; Platelet Count 191 10^3/cmm (130-400); Red Blood Count 4.38 10^6/uL (4.1-5.3); Red Cell Distribution Width 14.6 % (12.1-15.1)
--- NOTE | 2021-11-19 07:09 | W.PM.OPSUD ---
Surgery/Procedure H&P Update DATE OF PROCEDURE: November 19, 2021 DATE H&P PERFORMED: 11/14/21 H&P UPDATE INFORMATION: I have reviewed H&P completed within last 30 days, I have examined patient prior to procedure and No changes to prior documentation PREOP DIAGNOSIS: AUB, adenomyosis, pelvic pain, abnormal pap smear PLANNED PROCEDURE: Operation Date: 11/19/21 07:00 Proposed Procedures p Laparoscopic Assist Vaginal Hysterectomy 50031/n80.0(Not Applicable) - Yanna Riggs MD s Laparoscopic Salpingectomy(Bilateral) - Yanna Riggs MD Related Problem List Diagnoses (1) Adenomyosis: (2) Abnormal uterine bleeding (AUB): (3) Abnormal Pap smear of cervix: (4) Pelvic pain:
[2021-11-19 07:14] LABS: Anion Gap 16.4 (5-19); Blood Urea Nitrogen 26 mg/dL (6-20); Calcium 9.7 mg/dL (8.5-10.5); Carbon Dioxide 22 mmol/L (22-29); Chloride 106 mmol/L (98-107); Glomerular Filtration Rate 112.5 mL/min (90-130); Glucose 112 mg/dL (65-115); Osmolality Calculated 296 mOsm/kg (285-295); Potassium 4.4 mmol/L (3.5-5.1); Sodium 140 mmol/L (136-145)
[2021-11-19] MEDS: vasopressin 20 unit/mL INJ INJECTION (07:47)
[2021-11-19] MEDS: fentaNYL 50 mcg/mL INJ 2mL IVP (09:28)
[2021-11-19] MEDS: meperidine 50 mg/mL INJ 12.5 MG IVP (09:48)
[2021-11-19] MEDS: dextrose 5%-lactated ringers 1,000 ML 125 ML IV ×2 (10:53→18:20)
--- NOTE | 2021-11-19 11:01 | PM.OP ---
Operative Report Date of procedure: November 19, 2021 Pre-op diagnosis: Preop Diagnosis AUB, adenomyosis, pelvic pain, abnormal pap smear Post-op diagnosis: same (with omentum adhesed to the abdominal wall.) Post-op findings: 8 week sized uterus, normal appearing tubes and ovaries Omentum completely taken down Procedure done: Laparoscopic assisted vaginal hysterectomy with bilateral salpingectomy and take down of omental adhesions Specimens removed/disposition: uterus and bilateral fallopian tubes sent to pathology Surgeon: Yanna Riggs Anesthesia: General Estimated blood loss (mL): 50 IV fluids (mL): 1,300 Urine output (mL): 200 Complications: none Findings: 8 week sized uterus. Normal appearing tubes and ovaries adhesions of the omentum to abdominal wall. Condition: stable Procedure: The patient was taken to the operating room where general anesthesia was administered and found to be adequate. She was prepped and draped in the normal sterile fashion in the dorsal lithotomy position in [facility]. A Christopher catheter was placed. A weighted speculum was placed into the vagina and the anterior lip of the cervix was grasped with a single tooth tenaculum. The Zumi uterine manipulator was placed. The weighted speculum was removed. The gloves were changed and attention was turned to the abdomen. A 5 mm supraumbilical incision was made. Using a 5 mm port with the camera, the port was placed into the abdomen. The abdomen was insufflated. The omentum was adhered to the abdominal wall at the umbilicus. There was a small window and I was able to go through it to see the pelvis. Two low, lateral 5 mm ports were placed on the left and right under direct visualization from the camera. Using the camera in the lower, lateral ports, the omentum was taken down with the cautery device. Attention was then turned to the original procedure. Using the camera in the supraumbilical port, the right tube was grasped and elevated. Using the laparoscopic cautery, the mesosalpinx was divided between the ovary and tube. The tube was removed. This was performed the same way on the left. The uteroovarian ligaments as well as the round ligaments were ligated. Attention was then turned to the vaginal portion of the procedure. The weighted speculum was placed into the vagina. The zumi manipulator was removed. The single tooth tenaculum was removed and replaced with the jus's tenaculum. 10 mL of dilute Pitressin was injected at the vesicovaginal junction. A circumferential incision was made at the vesicovaginal junction and the vaginal mucosa reflected cephalad. The posterior peritoneum was entered sharply with the Metzenbaum scissors and the long weighted speculum replaced. Using the Sheela clamps the uterosacral ligaments were clamped cut and suture-ligated. The anterior peritoneum was entered sharply with the metzenbaum scissors. Then sequentially the uterine arteries and cardinal ligaments were clamped cut and suture-ligated. The remaining segement of the utero-ovarian ligaments were clamped cut and suture-ligated bilaterally and the specimen was removed. There was good hemostasis with only mild bleeding from the cuff. The peritoneum was closed with a pursestring using 2-0 Vicryl. The vaginal cuff was closed with 0 Vicryl in a running locked pattern incorporating the uterosacral ligaments into the lateral aspects of the vaginal cuff. The Christopher catheter was removed and the cystoscope advanced into the bladder. The patient was given pyridium and bilateral spill was noted. There were no injuries or deficits noted in the bladder. The cystoscope was removed and the Christopher was replaced. Vaginal packing was placed for good hemostasis. The ports were removed and the abdominal incisions closed with 3-0 monocryl. The patient tolerated the procedure well. Sponge lap and needle counts were correct x3. She was taken to the recovery room in stable condition.
--- NOTE | 2021-11-19 11:09 | ANE.PACU2 ---
Inpatient post-anesthesia follow up: Airway intact: Yes Vital signs: Temperature 98.2 F Pulse Rate 112 Respiratory Rate 18 Blood Pressure 121/72 Pulse Oximetry 96 Oxygen Delivery Me thod Room Air Oxygen Flow Rate 6 Fraction of Inspir ed Oxygen Hydration adequate: Yes Nausea and vomiting: No Pain level: 5 Mental status: Baseline
[2021-11-19] MEDS: oxyCODONE-APAP 5-325 mg Tablet PO ×2 (11:11→18:30)
[2021-11-19] MEDS: nicotine 14 mg Patch 1 PATCH TRANSDERMA (11:11)
[2021-11-19] MEDS: hyDROXYzine 25 mg Capsule 50 MG PO ×2 (12:39→22:02)
--- NOTE | 2021-11-19 13:42 | PC.NURSE ---
When this nurse entered the room to do rounding the patient was digging through her back pack searching for something. She immediately stopped when this nurse came into the room but her visitor mentioned she was looking for her Vistaril. I reminded the patient that we gave her two tablets and that she does not need to take more medication at this time or anything from home as we will give it to her here. She verbalized understanding but needs reinforcement. This nurse watched as the patient put down her back pack. I will continue to monitor.
--- NOTE | 2021-11-19 14:30 | PC.NURSE ---
When this nurse entered the room the patient was laying in bed with her visitor together under the blankets. Her was holding her in his arms but slightly laying over her left side. I let her know that I needed to obtain vitals at this time. She stuck her arm out to allow me to obtain vitals. I educated her on keeping her packing in place to help prevent bleeding complications. I also educated the patient on not performing any strenuous activity including having extra weight on her stomach after her procedure. She verbalized understanding but they did not change positions. Patient needs reeducated. I will continue to monitor.
[2021-11-19] MEDS: gabapentin 400 mg Capsule PO ×2 (15:27→22:02)
--- NOTE | 2021-11-19 15:45 | PC.NURSE ---
Called melt house supervisor to see if they was able to locate a KPAD for this patient and breanne said they had looked on all the floors and was unable to find one not in use. I notified the patient and she said that she was hot at this time anyway but I let her know they would bring us one as soon as they can find one. She verbalized understanding.
[2021-11-19] MEDS: HYDROmorphone 1 mg/mL INJ 1 mL 1.5 MG IVP ×2 (16:07→23:10)
--- NOTE | 2021-11-19 17:01 | PC.NURSE ---
Addendum entered by Fauzia Forman RN 11/19/21 17:02: Addendum: Patient was instructed to not soak her dressing or incisions only to sponge bath her arms and face at this time. Patient verbalized understanding. Original Note: Patient requested to use a washcloth and some soap to wipe down her face and arms before her kids come to visit her. She has been up to the chair for 30 minutes. She also walked back and forth in her room for 10 minutes assisted but this nurse. She is now sitting back down in her chair watching TV.
[2021-11-19] MEDS: docusate sodium 100 mg Capsule PO (18:20)
--- NOTE | 2021-11-19 18:34 | PC.NURSE ---
Patient tolerated clear liquids for lunch and snacks she attempted to eat regular food for dinner. She was able to eat her salad and some bread but she does not want to try to eat anything else at this time because her kids are in visiting in case she gets sick. She denies nausea at this time. I left her tray in her room per her request.
--- NOTE | 2021-11-19 20:08 | PC.NURSE ---
Patients corye showed up to stay with her. Patient was heard from the nurses station, patient was talking with a raised, excited voice. This nurse entered the room, patient was up in the room moving clothing from one bag to another. She stated that she did not want the fiancee in the room or to stay with her. Shabnam was speaking to the patient saying babe don't do that, I can do it, be careful you don't want to pull your catheter out . This nurse encouraged the patient to go back to bed and stayed in the room while the fiancee retrieved his possessions and left the room and unit. Per patients request he will not be allowed back on the unit at this time.
[2021-11-19] MEDS: simethicone 80 mg Chew PO (22:02)
[2021-11-20 04:49] VITALS: RESP 14
[2021-11-20] MEDS: oxyCODONE-APAP 5-325 mg Tablet PO ×2 (04:49→11:03)
[2021-11-20] MEDS: buPROPion XL (24 HR) 300 mg Tablet PO (04:50)
[2021-11-20 04:53] VITALS: BP 92/57; PULSE 70; RESP 14; O2SAT 98
[2021-11-20 05:14] LABS: Hematocrit 30.8 % (37.0-47.0); Mean Corpuscular HGB Conc 32.5 g/dL (30.0-36.0); Mean Corpuscular Hemoglobin 29.9 pg (28.0-34.0); Mean Corpuscular Volume 91.9 fl (81-99); Mean Platelet Volume 11.6 fL (7.4-10.4); Platelet Count 149 10^3/cmm (130-400); Red Blood Count 3.35 10^6/uL (4.1-5.3); Red Cell Distribution Width 14.6 % (12.1-15.1); White Blood Count 5.2 10^3/uL (4.0-10.0)
--- NOTE | 2021-11-20 05:18 | PC.NURSE ---
Vaginal packing removed, intact. Patient tolerated well.
[2021-11-20 09:06] VITALS: BP 94/60
[2021-11-20] MEDS: gabapentin 400 mg Capsule PO (09:06)
[2021-11-20] MEDS: cloNIDine 0.1 mg Tablet PO (09:06)
[2021-11-20] MEDS: fluoxetine 20 mg Capsule 40 MG PO (09:07)
[2021-11-20] MEDS: ibuprofen 800 mg tablet PO (09:07)
[2021-11-20] MEDS: docusate sodium 100 mg Capsule PO (09:07)
[2021-11-20 09:10] VITALS: BP 94/60; PULSE 85; RESP 16; TEMP 36.7
[2021-11-20] MEDS: nicotine 14 mg Patch 1 PATCH TRANSDERMA (09:12)
[2021-11-20 11:03] VITALS: RESP 16
--- NOTE | 2021-11-20 11:06 | P.DS_ITS ---
Discharge Providers Date of Admission: 11/19/21 10:13 Date of Discharge: November 20, 2021 Attending Provider at Admission: Yanna Riggs MD Attending Provider at Discharge: Yanna Riggs MD Diagnoses at Discharge Discharge Diagnosis (1) Adenomyosis: Status: Acute (2) Abnormal uterine bleeding (AUB): Status: Acute (3) Abnormal Pap smear of cervix: Status: Acute (4) Pelvic pain: Status: Acute Reason for Visit Reason for Visit: adenomyosis Hospital Course Hospital Course The patient was admitted for surgery. She did well and was ready for discharge on day #1. Physical Exam Narrative: The patient is up and ambulating. She has been able to urinate. She reports intense pain, but doesn't seem to be having much discomfort. She has had her packing and catheter removed. She is tolerating a regular diet. Const: COMMON NORMALS: no acute distress, average body habitus, patient oriented x3, no limitations, healthy appearing, alert and well nourished GENERAL APPEARANCE: cooperative, comfortable, well kempt and well developed ORIENTATION/CONSCIOUSNESS: Yes awake, Yes oriented to person, Yes oriented to place and Yes oriented to time Resp: COMMON NORMALS: normal respiratory effort EFFORT & INSPECTION: Yes able to speak in complete sentences GI: COMMON NORMALS: Soft to palpation and non-tender PALPATION: Yes Soft to palpation Extremity: COMMON NORMALS: no calf tenderness Neuro: COMMON NORMALS: patient oriented x3 SENSORIUM/ORIENTATION: Yes alert, Yes oriented to person, Yes oriented to place and Yes oriented to time Psych: APPEARANCE: Yes well kempt Urinary Catheter Management: Christopher: Cath Placed During This Visit: yes, but has since been removed by the nurse Reason for Continuing Indwelling Catheter: Decision to DC Catheter Urinary Catheter Date of Insertion: 11/19/21 Urinary Catheter Time of Insertion: 07:34 Date Urinary Catheter Removed: 11/20/21 Time Urinary Catheter Discontinued: 05:00 Discharge Data Studies Completed and Pending Pending at discharge Category Date Time Status ES surgery / GI images Routine Exams 11/19/21 06:35 Taken Retype for Patiets ABO/Rh Routine Lab 11/19/21 07:41 Ordered Urine Culture Routine Lab 11/19/21 07:36 Received Pathology: Surgical [PTH] Routine Pth 11/19/21 08:41 Received Laboratory Results WBC 5.2 10^3/uL (4.0-10.0) 11/20/21 05:00 RBC 3.35 10^6/uL (4.1-5.3) L 11/20/21 05:00 Hgb 10.0 g/dL (11.5-15.3) L 11/20/21 05:00 Hct 30.8 % (37.0-47.0) L 11/20/21 05:00 MCV 91.9 fl (81-99) 11/20/21 05:00 MCH 29.9 pg (28.0-34.0) 11/20/21 05:00 MCHC 32.5 g/dL (30.0-36.0) 11/20/21 05:00 RDW 14.6 % (12.1-15.1) 11/20/21 05:00 Plt Count 149 10^3/cmm (130-400) 11/20/21 05:00 MPV 11.6 fL (7.4-10.4) H 11/20/21 05:00 Neut % (Auto) 59.3 % 11/19/21 06:33 Lymph % (Auto) 27.5 % 11/19/21 06:33 [place] % (Auto) 8.8 % 11/19/21 06:33 Eos % (Auto) 3.5 % 11/19/21 06:33 Baso % (Auto) 0.7 % 11/19/21 06:33 Neut # (Auto) 3.58 10^3/uL (1.8-7.7) 11/19/21 06:33 Lymph # (Auto) 1.7 10^3/uL (0.8-4.8) 11/19/21 06:33 [place] # (Auto) 0.5 10^3/uL (0.2-0.9) 11/19/21 06:33 Eos # (Auto) 0.2 10^3/uL (0.0-0.8) 11/19/21 06:33 Baso # (Auto) 0.0 10^3/uL (0.0-0.1) 11/19/21 06:33 Nucleated RBC % (auto) 0 % 11/19/21 06:33 Nucleated RBCs # 0.0 /100WBC 11/19/21 06:33 Sodium 140 mmol/L (136-145) 11/19/21 06:33 Potassium 4.4 mmol/L (3.5-5.1) 11/19/21 06:33 Chloride 106 mmol/L (98-107) 11/19/21 06:33 Carbon Dioxide 22 mmol/L (22-29) 11/19/21 06:33 Anion Gap 16.4 (5-19) 11/19/21 06:33 BUN 26 mg/dL (6-20) H 11/19/21 06:33 Creatinine 0.6 mg/dL (0.5-0.9) 11/19/21 06:33 GFR Calculation 112.5 mL/min (90-130) 11/19/21 06:33 Glucose 112 mg/dL (65-115) 11/19/21 06:33 Calculated Osmolality 296 mOsm/kg (285-295) H 11/19/21 06:33 Calcium 9.7 mg/dL (8.5-10.5) 11/19/21 06:33 Urine HCG, Qual Negative (Negative) 11/19/21 07:01 Blood Type A Positive 11/19/21 06:33 Rho(D) Type Positive 11/19/21 06:33 Antibody Screen Negative 11/19/21 06:33 Vitals Last Vital Signs Temp 98.1 F 11/20/21 09:10 Pulse 85 11/20/21 09:10 Resp 16 11/20/21 11:03 BP 94/60 11/20/21 09:10 Pulse Ox 98 11/20/21 04:53 Discharge Plan Discharge Patient Disposition: Home Condition: Stable Prescriptions: New ibuprofen 800 mg Tablet 800 mg PO Q8H Qty: 30 0RF oxycodone-acetaminophen 5-325 mg Tablet 1 tab PO Q4H PRN (Reason: Moderate To Severe Pain) Qty: 40 0RF docusate sodium 100 mg Capsule 100 mg PO BID Qty: 60 0RF Continued montelukast 10 mg tablet 10 mg PO DAILY 0RF meloxicam 15 mg tablet 15 mg PO DAILY 0RF Flovent HFA 220 mcg/actuation HFA aerosol inhaler 1 puff inhalation BID 0RF celecoxib 200 mg capsule 200 mg PO BID 0RF cyclobenzaprine 10 mg tablet 10 mg PO BID PRN (Reason: muscle spasm) 0RF Combivent Respimat 20-100 mcg/actuation mist 1 puff inhalation QID PRN (Reason: shortness of breath) 0RF Rx Instructions: space evenly during waking hours gabapentin 400 mg capsule 400 mg PO TID Qty: 90 2RF M- Plus 27 mg iron- 1 mg tablet 1 tab PO DAILY 0RF bupropion HCl [Wellbutrin XL] 300 mg tablet extended release 24 hr 300 mg PO QAM Qty: 30 2RF clonidine HCl 0.1 mg tablet 0.1 mg PO DAILY Qty: 30 2RF fluoxetine [Prozac] 40 mg capsule 40 mg PO DAILY Qty: 30 2RF hydroxyzine HCl 50 mg tablet 50 mg PO QID PRN (Reason: anxiety) Qty: 120 2RF trazodone 100 mg tablet 200 mg PO .HS PRN (Reason: insomnia) Qty: 60 2RF naltrexone 50 mg tablet 50 mg PO DAILY Qty: 30 2RF propranolol 10 mg tablet 10 mg PO BID PRN (Reason: anxiety) Qty: 60 2RF All Day Allergy (cetirizine) 10 mg capsule 10 mg PO DAILY PRN (Reason: Allergy Symptoms) 0RF fluticasone propionate [Flonase Allergy Relief] 50 mcg/actuation spray,suspension 1 spray intranasal DAILY 0RF Rx Instructions: administer into each nostril Discharge Orders: Discharge Order (Routine); Ordered 11/20/21 Ordered By: Yanna Riggs Referrals: Yanna Riggs MD [Physician] - 11/25/21 10:45 am (Your 1 week post op appt with Dr Riggs on 11/25/21 at 10:45am Your 6 week post op appt with Dr Riggs on 12/30/21 at 3:00pm) Patient Instructions: Salpingectomy (GEN), Laparoscopic Hysterectomy (GEN), OB Abdominal Surgery - [facility], OB Discharge Report, Opioid Safety Discharge Attestations Time Spent in Discharge Care*: less than 30 min Quality Metrics Clinical Quality Measures [ No reported AMI, CVA or VTE this stay] Coding Level of Care Code Acute Chg FW DC note Diagnoses Adenomyosis N80.0 Abnormal uterine bleeding (AUB) N93.9 Abnormal Pap smear of cervix R87.619 Pelvic pain R10.2
[2021-11-20] MEDS: simethicone 80 mg Chew PO (11:07)
[2021-11-20 11:30] VITALS: BP 94/60; PULSE 85; RESP 16; TEMP 36.7
== END 2021-11-20 11:35 | disposition home or self-care (01) ==
LOC: OBGYN 10:16
PROVIDERS: Anesthesiology; Admitting Provider Obstetrics & Gynecology; Visit Provider Obstetrics & Gynecology
PROC: 0UT9FZZ Resection of Uterus, Via Natural or Artificial Opening With Percutaneous Endoscopic Assistance (ICD-10-PCS; CPT 58552; principal; 2021-11-19 07:00)
PROC: (CPT 58661; 2021-11-19 07:00)
DX: N93.9 Abnormal uterine and vaginal bleeding, unspecified (principal); N80.0 Endometriosis of uterus; R10.2 Pelvic and perineal pain; R87.619 Unspecified abnormal cytological findings in specimens from cervix uteri; M79.7 Fibromyalgia; F41.9 Anxiety disorder, unspecified; F32.9 Major depressive disorder, single episode, unspecified; E28.2 Polycystic ovarian syndrome; M06.9 Rheumatoid arthritis, unspecified; F17.210 Nicotine dependence, cigarettes, uncomplicated
CPT/HCPCS: 58552; 36415; 36592; 80048; 81025; 84703; 85025; 85027; 86850; 86900; 87077; 87086; 87186; 88307; G0378; J0330; J0690; J1100; J1170; J1200; J1885; J2175; J2250; J2405; J2704; J2710; J3010; J3490; J3535; J7030

== ENCOUNTER 2021-12-12 09:57 | Outpatient (CLI) | payer MEDICAID, SELFPAY ==
--- NOTE | 2021-12-12 13:01 | PFTS_ITS ---
Date of Study:12/12/21 Date of Dictation: 12/12/2021 MECHANICS: Postbronchodilator forced vital capacity (FVC) is normal. Prebronchodilator FEV1 is reduced-normalized post bronchodilation Prebronchodilator FEV1/FVC is reduced-normalized post bronchodilation There is significant response to bronchodilators. FLOW VOLUME LOOP: Sloping of expiratory limb suggestive of airway obstruction LUNG VOLUMES: Total lung capacity (TLC) is increased. Residual volume (RV) is significantly increased. DIFFUSING CAPACITY FOR CARBON MONOXIDE: Normal . INTERPRETATION: The spirometry consistent with obstructive ventilatory disease.? There is significant response to bronchodilators.? Lung volumes suggestive of significant air trapping. Normal gas transfer. Constellation of findings suggestive of reversible airway disease like asthma. Please correlate clinically. MTDD
== END 2021-12-12 09:58 | disposition home or self-care (01) ==
LOC: RT 09:59
PROVIDERS: Visit Provider Nurse Practitioner
DX: R06.02 Shortness of breath (principal)
CPT/HCPCS: 94060; 94726; 94729; J7611

== ENCOUNTER 2021-12-12 10:45 | Emergency (ER) | payer MEDICAID, SELFPAY ==
[2021-12-12 10:48] VITALS: BP 129/87; PULSE 100; RESP 18; TEMP 36.6; O2SAT 98; BMI 21.2
--- NOTE | 2021-12-12 10:59 | XRR_ITS ---
PROCEDURE INFORMATION: Exam: XR Chest Exam date and time: 12/12/2021 11:05 AM Age: 36 years old Clinical indication: Cough and dyspnea; Patient HX: History--sob and coughing during pft today; Additional info: Dyspnea/cough TECHNIQUE: Imaging protocol: XR of the chest. Views: 1 view. Total images: 1 COMPARISON: CR Cervical Spine Flex/Ext [id number] 06/03/2017 10:48 AM FINDINGS: Lungs: Benign granulomatous disease of the lung is noted. Pleural spaces: Unremarkable. No pleural effusion. No pneumothorax. Heart/Mediastinum: Unremarkable. No cardiomegaly. Bones/joints: Unremarkable. XR/XR chest 1V portable [id number] IMPRESSION: No acute cardiopulmonary process.
--- NOTE | 2021-12-12 13:27 | W.ED.DIZZY ---
HPI - Dizziness General: Chief Complaint: Dizziness Stated Complaint: Dizziness, Nausia Time Seen by Provider: 12/12/21 13:29 History of Present Illness: HPI Narrative: Patient is a 36-year-old female comes to the ED with nausea. Symptoms started this morning. She is also feeling a little bit of dizziness. Patient did see her boarding specialist and had a PFT test done and that is when her symptoms started shortly after that. She feels like some of the nausea and dizziness is probably due to the PFT test. She did state that both her kids have had a GI bug with nausea and vomiting and she thinks she is starting to develop the same symptoms they had. Associated symptoms: Reports nausea; Denies chest pain, chills, headache(s), nasal congestion, palpitations or vomiting Associated neuro symptoms: Deny numbness in extremities Review of Systems Const: Denies: fever(s), chills or fatigue Eyes: Denies: change in vision or eye discomfort ENMT: Denies: throat pain, odynophagia, nasal discharge or nasal congestion Card: Denies: chest pain, palpitations, edema, swelling of feet/ankles, dyspnea on exertion or orthopnea Resp: Denies: dyspnea, productive cough or non-productive cough GI: Reports: nausea; Denies: abdominal pain, vomiting, diarrhea, constipation or hematochezia : Denies: flank pain, dysuria or hematuria Musc: Denies: neck pain, back pain or extremity swelling Skin/Breast: Denies: rash or new lesions Neuro: Reports: dizziness; Denies: headache(s), numbness in extremities or weakness in extremities PFS ED PFSH: Medical History Allergies Asthma Fibromyalgia History of ovarian cyst PCOS (polycystic ovarian syndrome) Psychiatric care Rheumatoid arthritis Surgical History History of colonoscopy History of hernia repair History of loop electrical excision procedure (LEEP) History of rotator cuff surgery right arm Family History Mother CAD (coronary artery disease) Father Cancer agent orange Denies family history of Diabetes Clotting disorder Hyperlipidemia Chronic kidney disease (CKD) Bleeding disorder Hypertension Thyroid disease Stroke Female Reproductive History: Date of last menstrual period: 10/03/21 Physical Exam Const: COMMON NORMALS: no acute distress, patient oriented x3 and healthy appearing GENERAL APPEARANCE: cooperative and comfortable HENMT: COMMON NORMALS: normocephalic HEAD & SCALP: normocephalic MOUTH: Normal oral and palatal mucosa present THROAT: posterior oropharynx normal and uvula midline Eye: COMMON NORMALS: Equal, round and reactive pupils present and conjunctivae normal CONJUNCTIVA: Yes conjunctivae normal PUPIL: Yes Equal, round and reactive pupils present Neck/C-Spine: COMMON NORMALS: supple GENERAL: Yes normal visual inspection Resp: COMMON NORMALS: normal respiratory effort, No retractions, No use of accessory muscles and clear to auscultation bilaterally AUSCULTATION: clear to auscultation bilaterally Cardio: COMMON NORMALS: regular rate, regular rhythm, S1 normal heart sound present, S2 normal heart sound present, No gallops present (Cardio), No clicks present (Cardio), No murmurs present (Cardio) and Peripheral pulses 2+ throughout RATE: regular rate RHYTHM: regular rhythm HEART SOUNDS: S1 normal heart sound present and S2 normal heart sound present PERIPHERAL PULSES: Peripheral pulses 2+ throughout GI: COMMON NORMALS: Normal to inspection, nondistended, normoactive bowel sounds present, Soft to palpation, non-tender and no masses PALPATION: Yes Soft to palpation : COMMON NORMALS: Yes no CVA tenderness BLADDER/KIDNEY EXAM: Yes no CVA tenderness Back/Pelvis: COMMON NORMALS: no CVA tenderness Extremity: COMMON NORMALS: normal to inspection Neuro: COMMON NORMALS: patient oriented x3 and moves all extremities Skin: GENERAL SKIN EXAM: dry skin Course Reevaluation(s): Reevaluation #1: Patient feels a lot better after getting IV fluids and Zofran. Her symptoms have resolved and she is ready to be discharged home. Time: 15:09 Vital Signs: Vital signs: Vital Signs Temperature 97.8 F 12/12/21 10:48 Pulse Rate 84 12/12/21 14:11 Respiratory Rate 16 12/12/21 14:11 Blood Pressure 120/81 12/12/21 14:11 Pulse Oximetry 100 12/12/21 14:11 [facility] - Dizziness Medical Decision Making Patient is a 36-year-old female who comes to the ED with nausea after PFT test done today. Patient did say that her kids have had a stomach bug this week and she could be developing some of the their symptoms. She denies any chest pain or shortness of breath. Vitals are stable. Patient appears nontoxic in no acute distress or pain. Rest of exam is benign. CBC and CMP showed no acute findings. Chest x-ray showed no acute findings. Chest x-ray shows no acute findings. Patient was given 1 L of IV fluids and some Zofran her symptoms improved greatly. Patient says she feels back to normal. She is diagnosed with nausea and was discharged home with a prescription for Zofran. Told to follow-up with PCP in the next week for reevaluation. Return ED precautions given. Patient understood and agreed with plan. Lab Data I reviewed the patient's lab results. : 12/12/21 13:43 12/12/21 14:29 Radiology Impressions Chest X-Ray 12/12/21 10:59 IMPRESSION: No acute cardiopulmonary process. Laboratory Results WBC 4.8 10^3/uL (4.0-10.0) 12/12/21 13:43 RBC 4.49 10^6/uL (4.1-5.3) 12/12/21 13:43 Hgb 13.3 g/dL (11.5-15.3) 12/12/21 13:43 Hct 40.2 % (37.0-47.0) 12/12/21 13:43 MCV 89.5 fl (81-99) 12/12/21 13:43 MCH 29.6 pg (28.0-34.0) 12/12/21 13:43 MCHC 33.1 g/dL (30.0-36.0) 12/12/21 13:43 RDW 13.1 % (12.1-15.1) 12/12/21 13:43 Plt Count 266 10^3/cmm (130-400) 12/12/21 13:43 MPV 11.8 fL (7.4-10.4) H 12/12/21 13:43 Neut % (Auto) 63.0 % 12/12/21 13:43 Lymph % (Auto) 27.5 % 12/12/21 13:43 [place] % (Auto) 5.6 % 12/12/21 13:43 Eos % (Auto) 3.1 % 12/12/21 13:43 Baso % (Auto) 0.6 % 12/12/21 13:43 Neut # (Auto) 3.05 10^3/uL (1.8-7.7) 12/12/21 13:43 Lymph # (Auto) 1.3 10^3/uL (0.8-4.8) 12/12/21 13:43 [place] # (Auto) 0.3 10^3/uL (0.2-0.9) 12/12/21 13:43 Eos # (Auto) 0.2 10^3/uL (0.0-0.8) 12/12/21 13:43 Baso # (Auto) 0.0 10^3/uL (0.0-0.1) 12/12/21 13:43 Nucleated RBC % (auto) 0 % 12/12/21 13:43 Nucleated RBCs # 0.0 /100WBC 12/12/21 13:43 Sodium 136 mmol/L (136-145) 12/12/21 14:29 Potassium 3.8 mmol/L (3.5-5.1) 12/12/21 14:29 Chloride 102 mmol/L (98-107) 12/12/21 14:29 Carbon Dioxide 21 mmol/L (22-29) L 12/12/21 14:29 Anion Gap 16.8 (5-19) 12/12/21 14:29 BUN 15 mg/dL (6-20) 12/12/21 14:29 Creatinine 0.4 mg/dL (0.5-0.9) L 12/12/21 14:29 GFR Calculation 179.6 mL/min (90-130) H 12/12/21 14:29 Glucose 102 mg/dL (65-115) 12/12/21 14:29 Calculated Osmolality 283 mOsm/kg (285-295) L 12/12/21 14:29 Calcium 7.9 mg/dL (8.5-10.5) L 12/12/21 14:29 Total Bilirubin 0.4 mg/dL (0.15-1.2) 12/12/21 14:29 AST 16 U/L (0-32) 12/12/21 14:29 ALT 9 U/L (0-33) 12/12/21 14:29 Alkaline Phosphatase 80 IU/L (35-105) 12/12/21 14:29 Total Protein 5.5 g/dL (6.6-8.7) L 12/12/21 14:29 Albumin 4.0 g/dL (3.5-5.2) 12/12/21 14:29 Globulin 1.5 g/dL (1.3-4.6) 12/12/21 14:29 Discharge Plan Discharge Patient Disposition: Home Clinical Impression: Nausea Condition: Stable Prescriptions: New ondansetron 4 mg tablet,disintegrating 4 mg PO Q8H PRN (Reason: nausea and vomiting) Qty: 15 0RF No Action montelukast 10 mg tablet 10 mg PO DAILY 0RF meloxicam 15 mg tablet 15 mg PO DAILY 0RF Flovent HFA 220 mcg/actuation HFA aerosol inhaler 1 puff inhalation BID 0RF celecoxib 200 mg capsule 200 mg PO BID 0RF cyclobenzaprine 10 mg tablet 10 mg PO BID PRN (Reason: muscle spasm) 0RF Combivent Respimat 20-100 mcg/actuation mist 1 puff inhalation QID PRN (Reason: shortness of breath) 0RF Rx Instructions: space evenly during waking hours gabapentin 400 mg capsule 400 mg PO TID Qty: 90 2RF M- Plus 27 mg iron- 1 mg tablet 1 tab PO DAILY 0RF bupropion HCl [Wellbutrin XL] 300 mg tablet extended release 24 hr 300 mg PO QAM Qty: 30 2RF clonidine HCl 0.1 mg tablet 0.1 mg PO DAILY Qty: 30 2RF fluoxetine [Prozac] 40 mg capsule 40 mg PO DAILY Qty: 30 2RF hydroxyzine HCl 50 mg tablet 50 mg PO QID PRN (Reason: anxiety) Qty: 120 2RF trazodone 100 mg tablet 200 mg PO .HS PRN (Reason: insomnia) Qty: 60 2RF naltrexone 50 mg tablet 50 mg PO DAILY Qty: 30 2RF propranolol 10 mg tablet 10 mg PO BID PRN (Reason: anxiety) Qty: 60 2RF ondansetron HCl 4 mg tablet 4 mg PO Q6H Qty: 30 0RF All Day Allergy (cetirizine) 10 mg capsule 10 mg PO DAILY PRN (Reason: Allergy Symptoms) 0RF fluticasone propionate [Flonase Allergy Relief] 50 mcg/actuation spray,suspension 1 spray intranasal DAILY 0RF Rx Instructions: administer into each nostril ciprofloxacin HCl [Cipro] 500 mg tablet 500 mg PO BID Qty: 14 0RF ibuprofen 800 mg Tablet 800 mg PO Q8H Qty: 30 0RF oxycodone-acetaminophen 5-325 mg Tablet 1 tab PO Q4H PRN (Reason: Moderate To Severe Pain) Qty: 40 0RF docusate sodium 100 mg Capsule 100 mg PO BID Qty: 60 0RF Discharge Orders: Discharge ED (Routine); Ordered 12/12/21 Ordered By: Dylan Tubbs Discharge Diet: Regular Discharge Activity: Increase activity as tolerated Patient Instructions: Acute Nausea and Vomiting (DC) Activity Restrictions/Additional Instructions: Follow-up with medical provider as directed in the next 5 to 7 days for reevaluation. Take medications as prescribed. Drink plenty of fluids and stay hydrated. Return to the ER or your medical provider if condition worsens. Please read and understand discharge instructions. Thank you for choosing [facility] for your healthcare needs today. Please realize this is an emergency room and that we are providing you with a medical screening exam and this may not be complete and all inclusive of all the testing and or work up that you may need to determine your ailment or severity of your illness. It is very important that you follow up as instructed or that you return to the Emergency Department should you have concerns or if your condition changes or worsens in any way. Coding Level of Care Code ED Supervisor Cell Efficiency for Shelbie Merrill Exam Comprehensive
[2021-12-12] MEDS: sodium chloride 0.9% 1,000 ML 999 ML IV (14:05)
[2021-12-12] MEDS: ondansetron 2 mg/ML SDV 2 mL 4 MG IVP (14:06)
[2021-12-12 14:08] LABS: Basophils % 0.6 %; Eosinophils # 0.2 10^3/uL (0.0-0.8); Eosinophils % 3.1 %; Hematocrit 40.2 % (37.0-47.0); Hemoglobin 13.3 g/dL (11.5-15.3); Lymphocytes # 1.3 10^3/uL (0.8-4.8); Lymphocytes % 27.5 %; Mean Corpuscular HGB Conc 33.1 g/dL (30.0-36.0); Mean Corpuscular Hemoglobin 29.6 pg (28.0-34.0); Mean Corpuscular Volume 89.5 fl (81-99); Mean Platelet Volume 11.8 fL (7.4-10.4); Monocytes # 0.3 10^3/uL (0.2-0.9); Monocytes % 5.6 %; Neutrophils # 3.05 10^3/uL (1.8-7.7); Nucleated Red Blood Cells % 0 %; Platelet Count 266 10^3/cmm (130-400); Red Blood Count 4.49 10^6/uL (4.1-5.3); Red Cell Distribution Width 13.1 % (12.1-15.1); White Blood Count 4.8 10^3/uL (4.0-10.0)
[2021-12-12 14:11] VITALS: BP 120/81; PULSE 84; RESP 16; O2SAT 100
[2021-12-12 15:16] LABS: Alanine Aminotransferase 9 U/L (0-33); Alkaline Phosphatase 80 IU/L (35-105); Blood Urea Nitrogen 15 mg/dL (6-20); Calcium 7.9 mg/dL (8.5-10.5); Carbon Dioxide 21 mmol/L (22-29); Chloride 102 mmol/L (98-107); Globulin 1.5 g/dL (1.3-4.6); Glomerular Filtration Rate 179.6 mL/min (90-130); Glucose 102 mg/dL (65-115); Osmolality Calculated 283 mOsm/kg (285-295); Sodium 136 mmol/L (136-145); Total Bilirubin 0.4 mg/dL (0.15-1.2); Total Protein 5.5 g/dL (6.6-8.7)
[2021-12-12 15:17] LABS: Anion Gap 16.8 (5-19); Aspartate Amino Transferase 16 U/L (0-32); Potassium 3.8 mmol/L (3.5-5.1)
== END 2021-12-12 15:41 | disposition home or self-care (01) ==
PROVIDERS: Emergency Provider Physician Assistant
DX: R11.0 Nausea (principal)
CPT/HCPCS: 71045; 80053; 85025; 96361; 96374; 99284; J2405; J7030

== ENCOUNTER → 2022-01-27 12:55 | Outpatient (BNVA) | payer MEDICAID, SELFPAY | PROVIDERS: Visit Provider Psychiatry & Neurology Psychiatry | DX: F33.1 Major depressive disorder, recurrent, moderate (principal); F41.1 Generalized anxiety disorder; F10.10 Alcohol abuse, uncomplicated; F17.200 Nicotine dependence, unspecified, uncomplicated | CPT/HCPCS: 99213 ==

== ENCOUNTER → 2022-02-22 16:01 | Outpatient (BNVA) | payer MEDICAID, SELFPAY | PROVIDERS: PCP Nurse Practitioner; Visit Provider Registered Nurse Neonatal Intensive Care | DX: M79.641 Pain in right hand (principal); M25.441 Effusion, right hand | CPT/HCPCS: 73130 ==

== ENCOUNTER 2022-04-15 08:35 | Outpatient (CLI) | payer MEDICAID, SELFPAY ==
--- NOTE | 2022-04-15 08:48 | MR_ITS ---
WS: [id number] MR OF THE RIGHT HAND WITHOUT GADOLINIUM ENHANCEMENT. INDICATION: RIGHT finger swelling lump 5th phalanx TECHNIQUE: Axial T1, axial T2, coronal T1, coronal STIR, sagittal T2, coronal 3-D FSPGR FINDINGS: Some images degraded by motion. Soft tissue edema and thickening about the 5th PIP joint. This corresponds to the area of pain and i njury consistent with ligamentous injury. Fracture evaluation is limited due to motion. No obvious di splaced fractures. Normal metatarsals. Normal bone marrow signal in the carpals. Normal bone marrow signal in the proxim al and distal carpal row with mild subchondral cystic change. A few small erosive lesions in the meta carpal heads. Additional small periarticular erosion involving the distal ulna. Degenerative arthriti s involving the radiocarpal joint somewhat advanced for patient this age. Degenerative arthritis at the 1st CMC and MCP. MR/MR hand RT wo con* [id number] IMPRESSION: Some images degraded by patient motion which obscures fine bony det ail 1. Soft tissue thickening and edema involving the 5th PIP joint consistent wit h ligamentous injury. This is in the area of concern. 2. No definite visualized fractures involving the 5th phalanges although image s degraded by motion artifact which significantly limits fracture detection. N oncontrast CT would be more sensitive to assess for small avulsion fractures an d better anatomic detail. 3. A few small periarticular erosions involving the metacarpal heads, proximal distal carpal row, distal ulna, radiocarpal articulation. 4. Mild degenerative arthritis involving the 1st CMC and MCP.
== END 2022-04-15 08:36 | disposition home or self-care (01) ==
LOC: RAD 08:37
PROVIDERS: PCP Nurse Practitioner; Visit Provider Nurse Practitioner
DX: M79.89 Other specified soft tissue disorders (principal); M13.841 Other specified arthritis, right hand
CPT/HCPCS: 73218

== ENCOUNTER → 2022-04-22 15:44 | Outpatient (BNVA) | payer MEDICAID, SELFPAY | PROVIDERS: PCP Nurse Practitioner; Visit Provider Registered Nurse Neonatal Intensive Care | DX: U07.1 COVID-19 (principal); J01.40 Acute pansinusitis, unspecified | CPT/HCPCS: 87426 ==

== ENCOUNTER 2022-05-13 08:13 | Inpatient (IN) | payer MEDICAID, SELFPAY ==
[2022-05-13] VITALS (109 sets, daily range): BP systolic 76–138; BP diastolic 49–80; PULSE 61–116; RESP 11–31; TEMP 36.6–36.8; O2SAT 85–100; BMI 20.1
[2022-05-13 09:05] LABS: Basophils % 0.4 %; Eosinophils % 0.1 %; Hematocrit 31.4 % (37.0-47.0); Hemoglobin 10.1 g/dL (11.5-15.3); Lymphocytes # 1.2 10^3/uL (0.8-4.8); Lymphocytes % 14.1 %; Mean Corpuscular HGB Conc 32.2 g/dL (30.0-36.0); Mean Corpuscular Hemoglobin 27.7 pg (28.0-34.0); Mean Platelet Volume 11.3 fL (7.4-10.4); Monocytes # 1.1 10^3/uL (0.2-0.9); Monocytes % 13.3 %; Neutrophils % 71.4 %; Nucleated Red Blood Cells % 0 %; Platelet Count 227 10^3/cmm (130-400); Red Blood Count 3.65 10^6/uL (4.1-5.3); Red Cell Distribution Width 15.4 % (12.1-15.1); White Blood Count 8.1 10^3/uL (4.0-10.0)
[2022-05-13] MEDS: morphine 4 mg/mL SDV 1 mL IVP (09:24)
[2022-05-13] MEDS: sodium chloride 0.9% 1,000 ML 999 ML IV (09:24)
[2022-05-13] MEDS: ondansetron 2 mg/ML SDV 2 mL 4 MG IVP ×2 (09:25→17:56)
[2022-05-13 09:31] LABS: Alanine Aminotransferase 9 U/L (0-33); Albumin Level 3.4 g/dL (3.5-5.2); Alkaline Phosphatase 149 U/L (35-105); Anion Gap 16.5 (5-19); Aspartate Amino Transferase 12 U/L (0-32); Blood Urea Nitrogen 8 mg/dL (6-20); Calcium 9.5 mg/dL (8.5-10.5); Carbon Dioxide 25 mmol/L (22-29); Chloride 97 mmol/L (98-107); Globulin 4.3 g/dL (1.3-4.6); Glomerular Filtration Rate 93.6 mL/min (90-130); Glucose 114 mg/dL (65-115); Osmolality Calculated 279 mOsm/kg (285-295); Potassium 3.5 mmol/L (3.5-5.1); Sodium 135 mmol/L (136-145); Total Bilirubin 0.2 mg/dL (0.15-1.2); Total Protein 7.7 g/dL (6.6-8.7)
--- NOTE | 2022-05-13 09:50 | W.ED.ABDPA2 ---
HPI - Abdominal Pain General: Chief Complaint: Abdominal Pain Stated Complaint: chills, fever, sharp pain on right side Time Seen by Provider: 05/13/22 08:14 Source: patient Mode of arrival: ambulatory History of Present Illness: 37-year-old female presents emergency room complaining of right-sided abdominal pain for the last month. Mild dysuria, question of hematuria she has had some nausea vomiting with it. No history of kidney stones. She is reporting intermittent fevers with a T-max at home of up to 103. She previously had a hysterectomy earlier this year and followed up with Dr. Riggs for no significant findings on exam at that time. MD elicited complaint: abdominal pain Onset (ago): hour(s) Pain Consistency: constant Severity: moderate Quality: cramping Radiation: none Exacerbating factors: nothing Relieving factors: nothing Associated Symptoms: Reports chills, GI cramping, dysuria, fever(s), nausea, poor appetite and vomiting; Denies anorexia, belching, bloating, change in bowel habits, change in stool character, coffee ground emesis, constipation, diarrhea, dyspepsia, excessive flatus, heartburn, hematochezia, hematuria, hematemesis, fecal incontinence, loose stools and melena Related Data: Date of Last Menstrual Period: 10/03/21 Review of Systems Const: Reports: fever(s), chills, fatigue and malaise ENMT: Denies: throat pain, ear or mastoid pain, nasal discharge or nasal congestion Card: Denies: chest pain, edema, dyspnea on exertion or orthopnea Resp: Denies: dyspnea, productive cough or non-productive cough GI: Reports: abdominal pain, nausea, vomiting and GI cramping; Denies: hematemesis, coffee ground emesis, heartburn, diarrhea, constipation, bloating, belching, excessive flatus, fecal incontinence, change in bowel habits, change in stool character, hematochezia or melena : Reports: flank pain, difficulty voiding, dysuria and urinary frequency; Denies: hematuria Skin/Breast: Denies: rash or pruritus PFS ED PFSH: Medical History Allergies Anemia Asthma Depression Fibromyalgia Generalized anxiety disorder 3 para 3 History of ovarian cyst Hypotension Moderate episode of recurrent major depressive disorder Nicotine dependence, unspecified, uncomplicated PCOS (polycystic ovarian syndrome) Psychiatric care Pyelonephritis Rheumatoid arthritis Surgical History History of colonoscopy History of hernia repair History of hysterectomy (11/19/21) Laparoscopic assisted vaginal hysterectomy with bilateral salpingectomy and take down of omental adhesions. Dr Riggs History of hysteroscopy (10/22/21) hysteroscopy, dilation and curettage with myosure. Dr Riggs History of loop electrical excision procedure (LEEP) History of rotator cuff surgery right arm Family History Mother CAD (coronary artery disease) Father Cancer agent orange Denies family history of Diabetes Clotting disorder Hyperlipidemia Chronic kidney disease (CKD) Bleeding disorder Hypertension Thyroid disease Stroke Social History Smoking and tobacco status: current every day smoker Female Reproductive History: Date of last menstrual period: 10/03/21 Physical Exam Const: GENERAL APPEARANCE: cooperative and comfortable ORIENTATION/CONSCIOUSNESS: Yes awake, Yes oriented to person, Yes oriented to place and Yes oriented to time HENMT: COMMON NORMALS: normocephalic, atraumatic and hearing grossly normal bilaterally HEAD & SCALP: normocephalic and atraumatic Resp: COMMON NORMALS: normal respiratory effort, No retractions, No use of accessory muscles and clear to auscultation bilaterally AUSCULTATION: clear to auscultation bilaterally Cardio: COMMON NORMALS: regular rate, regular rhythm and No murmurs present (Cardio) RATE: regular rate RHYTHM: regular rhythm GI: COMMON NORMALS: Soft to palpation and No hepatosplenomegaly present AUSCULTATION: Yes normoactive bowel sounds PALPATION: Yes Soft to palpation, No Tenderness to palpation present (GI), No Guarding due to palpation present (GI) and Yes No hepatosplenomegaly present : BLADDER/KIDNEY EXAM: Yes CVA tenderness on the right Back/Pelvis: GENERAL BACK: Yes CVA tenderness Extremity: COMMON NORMALS: normal to inspection, capillary refill normal, no clubbing, cyanosis or edema, no calf tenderness and no pedal edema Neuro: SENSORIUM/ORIENTATION: Yes oriented to person, Yes oriented to place and Yes oriented to time Skin: COMMON NORMALS: no rashes or lesions noted GENERAL SKIN EXAM: no rashes or lesions noted Course Vital Signs: Vital signs: Vital Signs Temperature 97.8 F 05/16/22 07:00 Pulse Rate 99 05/16/22 11:00 Respiratory Rate 20 H 05/16/22 11:00 Blood Pressure 116/79 05/16/22 12:00 Pulse Oximetry 100 05/16/22 10:00 Oxygen Delivery Me thod 05/16/22 10:00 MDM - Abdominal Pain Medical Decision Making Patient given IV fluids had several blood sugar pressures that were less than 100 even after the fluid bolus. 3 of those were documented onto the vital sign sheet but the bedside monitor exhibited several more. We added low-dose Levophed and also started on IV antibiotics will admit for pyelonephritis CT does not show any obstruction but does show perinephric stranding consistent with Mark. Darren Shukla orders written Medical Records I reviewed the patient's medical records. Lab Data I reviewed the patient's lab results. : 05/15/22 03:17 05/15/22 03:17 Labs/Radiology: Radiology Impressions Abdomen/Pelvis CT 05/13/22 09:57 IMPRESSION: 1. Bilateral diffuse renal cortical wedge-shaped hypodensities. Most typical for pyelonephritis. 2. No renal obstruction. 3. Normal appendix. 4. Hepatic hemangioma measures 14 mm. Chest CTA 05/16/22 07:50 IMPRESSION: 1. No CTA evidence of pulmonary embolism, thoracic aortic aneurysm or thoracic aortic dissection. 2. No CT evidence of pneumonia. Minimal dependent atelectasis. Laboratory Results WBC 8.1 10^3/uL (4.0-10.0) 05/13/22 08:55 RBC 3.65 10^6/uL (4.1-5.3) L 05/13/22 08:55 Hgb 10.1 g/dL (11.5-15.3) L 05/13/22 08:55 Hct 31.4 % (37.0-47.0) L 05/13/22 08:55 MCV 86.0 fl (81-99) 05/13/22 08:55 MCH 27.7 pg (28.0-34.0) L 05/13/22 08:55 MCHC 32.2 g/dL (30.0-36.0) 05/13/22 08:55 RDW 15.4 % (12.1-15.1) H 05/13/22 08:55 Plt Count 227 10^3/cmm (130-400) 05/13/22 08:55 MPV 11.3 fL (7.4-10.4) H 05/13/22 08:55 Neut % (Auto) 71.4 % 05/13/22 08:55 Lymph % (Auto) 14.1 % 05/13/22 08:55 [place] % (Auto) 13.3 % 05/13/22 08:55 Eos % (Auto) 0.1 % 05/13/22 08:55 Baso % (Auto) 0.4 % 05/13/22 08:55 Neut # (Auto) 5.80 10^3/uL (1.8-7.7) 05/13/22 08:55 Lymph # (Auto) 1.2 10^3/uL (0.8-4.8) 05/13/22 08:55 [place] # (Auto) 1.1 10^3/uL (0.2-0.9) H 05/13/22 08:55 Eos # (Auto) 0.0 10^3/uL (0.0-0.8) 05/13/22 08:55 Baso # (Auto) 0.0 10^3/uL (0.0-0.1) 05/13/22 08:55 Nucleated RBC % (auto) 0 % 05/13/22 08:55 Nucleated RBCs # 0.0 /100WBC 05/13/22 08:55 Sodium 135 mmol/L (136-145) L 05/13/22 08:55 Potassium 3.5 mmol/L (3.5-5.1) 05/13/22 08:55 Chloride 97 mmol/L (98-107) L 05/13/22 08:55 Carbon Dioxide 25 mmol/L (22-29) 05/13/22 08:55 Anion Gap 16.5 (5-19) 05/13/22 08:55 BUN 8 mg/dL (6-20) 05/13/22 08:55 Creatinine 0.7 mg/dL (0.5-0.9) 05/13/22 08:55 GFR Calculation 93.6 mL/min (90-130) 05/13/22 08:55 Glucose 114 mg/dL (65-115) 05/13/22 08:55 Calculated Osmolality 279 mOsm/kg (285-295) L 05/13/22 08:55 Calcium 9.5 mg/dL (8.5-10.5) 05/13/22 08:55 Total Bilirubin 0.2 mg/dL (0.15-1.2) 05/13/22 08:55 AST 12 U/L (0-32) 05/13/22 08:55 ALT 9 U/L (0-33) 05/13/22 08:55 Alkaline Phosphatase 149 U/L (35-105) H 05/13/22 08:55 Total Protein 7.7 g/dL (6.6-8.7) 05/13/22 08:55 Albumin 3.4 g/dL (3.5-5.2) L 05/13/22 08:55 Globulin 4.3 g/dL (1.3-4.6) 05/13/22 08:55 Urine Color Yellow (Yellow) 05/13/22 08:50 Urine Appearance Sl hazy (CLEAR) 05/13/22 08:50 Urine pH 5 (5-7) 05/13/22 08:50 Ur Specific [place] 1.020 (1.005-1.030) 05/13/22 08:50 Urine Protein 1+ (Negative) H 05/13/22 08:50 Urine Glucose (UA) Norm (Normal) 05/13/22 08:50 Urine Ketones 1+ (Negative) H 05/13/22 08:50 Urine Blood 2+ (Negative) H 05/13/22 08:50 Urine Nitrate Positive (Negative) H 05/13/22 08:50 Urine Bilirubin 1+ (Negative) H 05/13/22 08:50 Urine Urobilinogen 1 mg/dL (Negative) H 05/13/22 08:50 Ur Leukocyte Esterase 1+ (Negative) H 05/13/22 08:50 Urine RBC None /hpf (0-2) 05/13/22 08:50 Urine WBC >100 /hpf (0-5) H 05/13/22 08:50 Ur Squamous Epith Cells 5-10 /hpf (0-5) H 05/13/22 08:50 Amorphous Sediment Not Reportable 05/13/22 08:50 Urine Bacteria 4+ /hpf (NONE) H 05/13/22 08:50 Urine HCG, Qual Negative (Negative) 05/13/22 08:50 Discharge Plan Discharge Patient Disposition: Admitted As Inpatient Admit Provider: Hailey Shukla Clinical Impression: Pyelonephritis, Sepsis Condition: Stable Discharge Diet: Cardiac Discharge Activity: Increase activity as tolerated Coding Level of Care Code ED Ammonia Box Operator for Shelbie Merrill
[2022-05-13 09:53] LABS: Urine Appearance SL Hazy (CLEAR); Urine Color Yellow (Yellow)
[2022-05-13 09:54] LABS: Add Urine Microscopic? YES; Bilirubin Urine 1+ (Negative); Blood Urine 2+ (Negative); Glucose Urine UA Norm (Normal); Ketones Urine 1+ (Negative); Leukocyte Esterase Urine 1+ (Negative); Nitrate Urine Positive (Negative); Protein Urine 1+ (Negative); Urobilinogen Urine 1 mg/dL (Negative); pH Urine 5 (5-7)
--- NOTE | 2022-05-13 09:57 | CT_ITS ---
WS: [id number] CT ABDOMEN AND PELVIS WITH CONTRAST HISTORY: RIGHT mid abdominal pain, nausea and vomiting for one month. TECHNIQUE: Imaging performed of the abdomen and pelvis with IV contrast. Single phase imaging of the abdomen. Coronal and sagittal reformats are submitted. All CT scans at [facility] use at [address] one of these dose optimization techniques: automated exposure control; mA and/or kV adjustment per patient size (includes targeted exams where dose is matched to clinical indication); or iterative re construction. IV CONTRAST: Omnipaque 350; 80 mL IV. Oral contrast: No DLP: 301.46 mGy.cm COMPARISON: None available. Lower thorax: Lung bases are clear. Heart is normal size. No hiatal hernia. Liver/biliary system: Liver is mildly enlarged which is probably a Ralph's lobe. 14 mm peripherally enhancing mass in the LEFT lobe of the liver consistent with a hemangioma. Hepatic steatosis is focal along the falciform ligament. Normal portal vein. Gallbladder: Normal. No gallstones or wall thickening. No pericholecystic fluid. Pancreas: Normal size pancreas and pancreatic duct. No adjacent inflammation. Spleen: Normal size spleen. No mass or infarct. Adrenal glands: Normal. Right kidney: Normal size with multiple wedge-shaped areas of decreased attenuation and nonenhancemen t. No obstruction and no significant perinephric stranding. Left kidney: Normal size with multiple cortical wedge-shaped hypodensities. There are a few small cys ts which are too small to characterize. Aorta: Normal. Lymphadenopathy: None. Free fluid: None. GI tract: Nondistended stomach. No small bowel obstruction. Normal appendix. The entire appendix is n ot identified but no secondary inflammatory changes in the RIGHT lower quadrant. Abdominal wall: Unremarkable abdominal wall. No hernia. Pelvis: Prior hysterectomy. Bones: Unremarkable. CT/CT abdomen pelvis w con* [id number] IMPRESSION: 1. Bilateral diffuse renal cortical wedge-shaped hypodensities. Most typical f or pyelonephritis. 2. No renal obstruction. 3. Normal appendix. 4. Hepatic hemangioma measures 14 mm.
[2022-05-13 10:00] LABS: Add Urine Culture? Yes; Bacteria Urine 4+ /hpf; WBC Urine >100 /hpf (0-5)
[2022-05-13] MEDS: cefTRIAXone 1,000 MG in sodium chloride 0.9% (plus) 50 ML 100 MG IV (11:05)
[2022-05-13] MEDS: lactated ringers 1,000 ML 999 ML IV (12:04)
--- NOTE | 2022-05-13 13:06 | P.HP_ITS ---
Providers/Chief Complaint Admitting Physician: Hailey Shukla MD Primary Care Provider: MARICRUZ Posada Chief Complaint: chills, fever, sharp pain on right side History of Present Illness Stephanie Molina is a 37 year old female who presented to the emergency room with chief complaint of not feeling well. She has been having right-sided abdominal pain predominantly right flank extending into the right lower quadrant for about a month now. She has had nausea with intermittent vomiting, intermittent high fevers up to a max of 103. Fevers have been occurring predominantly at night. She was seen at the urgent care clinic in early April at which time she also reported some sinus pain and pressure and nasal congestion. She was given a course of antibiotics in the form of Augmentin 875 twice a day. She continued to have persistent fever and malaise along with nausea and vomiting and right-sided abdominal pain. Had a hysterectomy in November of this year and actually saw Dr. Riggs last week thinking that some of her symptoms might be related to postsurgical status. In addition to her other symptoms she reported vaginal discharge and some pelvic pain. On pelvic examination at that visit she did have some discomfort but exam was otherwise normal. Vaginitis panel was sent. Last night she had fever up to 103.4. She was not able to keep oral intake down. She has been taking meloxicam, gabapentin and Tylenol trying to control her pain and fever but symptoms have persisted. No diarrhea. Bowel movements have been normal for her. She has not had any urinary symptoms to speak of. Pain on the right flank was described as severe and sharp. Improved by medication but never completely went away. Initial vital signs on presentation showed blood pressure of 101/75. CT scan of the abdomen and pelvis demonstrated evidence of probable pyelonephritis. White count was normal. Patient's blood pressure dropped into the upper 70s and low 80s systolic while in the ER. She received several liters of fluid with persistent hypotension and ultimately had to be started on some low-dose Levophed. Lactic acid was normal. She had not taken any clonidine or propranolol, both of which are as needed medications for anxiety and tremor on her home medication list for several days. No narcotic use. Review of previous available records shows that pressures are generally 100-1 20s systolic over 70s to 80s. Only 3 previous measurements have been less than 100 systolic. Given persistent hypotension necessitating Levophed in the setting of pyelonephritis, patient is being admitted for further care. She noted today that her urine was very dark, almost tea colored. She is also noticed significant odor. She is not feeling as nauseated presently but continues to not feel well. Review of Systems Const: Reports: fever(s) (Max 103.7), chills, change in appetite, fatigue and malaise ENMT: Reports: dry mouth; Denies: throat pain or nasal congestion Card: Denies: chest pain or palpitations Resp: Reports: dyspnea (sometimes with asthma); Denies: productive cough or non-productive cough GI: Reports: abdominal pain (right sided for about a week), nausea and vomiting; Denies: diarrhea or constipation : Reports: flank pain (right), amenorrhea (s/p hysterectomy earlier this year) and other (dark urine, odorous several days); Denies: difficulty voiding, dysuria, urinary frequency, urinary urgency or hematuria Musc: Reports: back pain, extremity pain, joint pain (left foot, hands), muscle cramps and other (fibromyalgia pain) Skin/Breast: Reports: dry skin; Denies: pruritus or sores Neuro: Denies: headache(s), difficulty walking or confusion Psych: Reports: anxiety (stable) and depression (stable) Endo: Denies: polyuria [place]/Lymph: Denies: easy bruising or easy bleeding Medications/Allergies Home Medications Medication Instructions Recorded Confirmed Last Taken Type cyclobenzaprine 10 mg tablet 10 mg PO BID PRN muscle spasm 12/12/20 05/13/22 11/18/21 History ipratropium 20 mcg-albuterol 100 1 puff inhalation QID PRN 12/12/20 05/13/22 11/18/21 History mcg/actuation mist for inhalation shortness of breath (Combivent Respimat) meloxicam 15 mg tablet 15 mg PO DAILY 12/12/20 05/13/22 05/12/22 History montelukast 10 mg tablet 10 mg PO DAILY 12/12/20 05/13/22 11/18/21 History gabapentin 400 mg capsule 400 mg PO TID #90 caps 05/02/21 05/13/22 05/12/22 Rx cetirizine 10 mg capsule (All Day 10 mg PO DAILY PRN Allergy Symptoms 11/15/21 05/13/22 11/18/21 History Allergy (cetirizine)) fluticasone propionate 50 1 spray intranasal DAILY 11/15/21 05/13/22 11/18/21 History mcg/actuation nasal spray,suspension (Flonase Allergy Relief) budesonide-formoterol HFA 160 2 puff inhalation BID 01/27/22 05/13/22 05/13/22 History mcg-4.5 mcg/actuation aerosol inhaler (Symbicort) bupropion HCl 300 mg 24 hr tablet, 300 mg PO QAM #30 tabs 01/27/22 05/13/22 Unknown Rx extended release (Wellbutrin XL) fluoxetine 40 mg capsule (Prozac) 40 mg PO DAILY #30 caps 01/27/22 05/13/22 Unknown Rx naltrexone 50 mg tablet 50 mg PO DAILY #30 tabs 01/27/22 05/13/22 Unknown Rx clonidine HCl 0.1 mg tablet 0.1 mg PO DAILY PRN Anxiety second 05/13/22 05/13/22 05/12/22 History hydroxyzine HCl 50 mg tablet 50 mg PO QID PRN anxiety first 05/13/22 05/13/22 Unknown History multivitamin 1 tab PO DAILY 05/13/22 05/13/22 Unknown History propranolol 10 mg tablet 10 mg PO BID PRN tremors 05/13/22 05/13/22 Unknown History trazodone 100 mg tablet 200 mg PO BEDTIME PRN insomnia 05/13/22 05/13/2205/12 History Allergies Allergy/AdvReac Type Severity Reaction Status Date / Time No Known Allergies Allergy Verified 05/13/22 09:15 PFSH Acute PFSH: Medical History (Updated 05/13/22 @ 21:49 by Hailey Shukla MD) Allergies Asthma Depression Fibromyalgia Generalized anxiety disorder 3 para 3 History of ovarian cyst PCOS (polycystic ovarian syndrome) Psychiatric care Rheumatoid arthritis Surgical History (Updated 05/13/22 @ 15:04 by Hailey Shukla MD) History of colonoscopy History of hernia repair History of hysterectomy (11/19/21) Laparoscopic assisted vaginal hysterectomy with bilateral salpingectomy and take down of omental adhesions. Dr Riggs History of hysteroscopy (10/22/21) hysteroscopy, dilation and curettage with myosure. Dr Riggs History of loop electrical excision procedure (LEEP) History of rotator cuff surgery right arm Family History Mother CAD (coronary artery disease) Father Cancer agent orange Denies family history of Diabetes Clotting disorder Hyperlipidemia Chronic kidney disease (CKD) Bleeding disorder Hypertension Thyroid disease Stroke Social History Smoking and tobacco status: current every day smoker Female Reproductive History: Date of last menstrual period: 10/03/21 (Hysteroscopy October 2021, Hysterectomy November 2021) Vitals/I&O/Wt Last Vital Signs Temp 98.1 F 05/13/22 08:44 Pulse 80 05/13/22 12:06 Resp 16 05/13/22 09:24 BP 81/49 05/13/22 12:06 Pulse Ox 95 05/13/22 12:06 O2 Del Method 05/13/22 12:06 Selected Entries 05/13/22 08:44 05/13/22 09:31 05/13/22 11:06 Blood Pressure 101/75 81/57 83/54 05/13/22 12:06 05/13/22 13:35 05/13/22 13:40 Blood Pressure 81/49 80/52 83/58 05/13/22 13:45 05/13/22 13:50 Blood Pressure 91/59 92/60 05/12/22 05/13/22 05/13/22 22:59 06:59 14:59 Intake Total 1050 / 1050 Balance 1050 / 1050 Weight last 48 hrs Weight 42.184 kg Physical Exam Narrative: Constitutional: Awake and alert, looks like she does not feel well, petite stature, cooperative HEENT: Normocephalic atraumatic, extraocular movements intact, pupils equal reactive, nasopharynx is clear, oropharynx with dry mucous membranes, fair dentition Neck: Supple Respiratory: Clear to auscultation bilaterally Cardiovascular: Regular rate and rhythm, 2+ pulses throughout, brisk capillary refill, no murmurs or rubs Abdomen: Soft, right flank tenderness, radiating into the right upper quadrant area, lesser degree left flank tenderness, positive bowel sounds, no rebound, guarded with attempts to reexamine Extremities: No pitting edema, no calf tenderness, feet are cool Skin: Skin is dry, no mottling Neuro: Speech clear, face symmetric, moves all extremities, no tremors Psych: Normal affect Data : 05/13/22 08:55 05/13/22 08:55 Other Labs: Radiology Impressions Abdomen/Pelvis CT 05/13/22 09:57 IMPRESSION: 1. Bilateral diffuse renal cortical wedge-shaped hypodensities. Most typical for pyelonephritis. 2. No renal obstruction. 3. Normal appendix. 4. Hepatic hemangioma measures 14 mm. Laboratory Results WBC 8.1 10^3/uL (4.0-10.0) 05/13/22 08:55 RBC 3.65 10^6/uL (4.1-5.3) L 05/13/22 08:55 Hgb 10.1 g/dL (11.5-15.3) L 05/13/22 08:55 Hct 31.4 % (37.0-47.0) L 05/13/22 08:55 MCV 86.0 fl (81-99) 05/13/22 08:55 MCH 27.7 pg (28.0-34.0) L 05/13/22 08:55 MCHC 32.2 g/dL (30.0-36.0) 05/13/22 08:55 RDW 15.4 % (12.1-15.1) H 05/13/22 08:55 Plt Count 227 10^3/cmm (130-400) 05/13/22 08:55 MPV 11.3 fL (7.4-10.4) H 05/13/22 08:55 Neut % (Auto) 71.4 % 05/13/22 08:55 Lymph % (Auto) 14.1 % 05/13/22 08:55 [place] % (Auto) 13.3 % 05/13/22 08:55 Eos % (Auto) 0.1 % 05/13/22 08:55 Baso % (Auto) 0.4 % 05/13/22 08:55 Neut # (Auto) 5.80 10^3/uL (1.8-7.7) 05/13/22 08:55 Lymph # (Auto) 1.2 10^3/uL (0.8-4.8) 05/13/22 08:55 [place] # (Auto) 1.1 10^3/uL (0.2-0.9) H 05/13/22 08:55 Eos # (Auto) 0.0 10^3/uL (0.0-0.8) 05/13/22 08:55 Baso # (Auto) 0.0 10^3/uL (0.0-0.1) 05/13/22 08:55 Nucleated RBC % (auto) 0 % 05/13/22 08:55 Nucleated RBCs # 0.0 /100WBC 05/13/22 08:55 Sodium 135 mmol/L (136-145) L 05/13/22 08:55 Potassium 3.5 mmol/L (3.5-5.1) 05/13/22 08:55 Chloride 97 mmol/L (98-107) L 05/13/22 08:55 Carbon Dioxide 25 mmol/L (22-29) 05/13/22 08:55 Anion Gap 16.5 (5-19) 05/13/22 08:55 BUN 8 mg/dL (6-20) 05/13/22 08:55 Creatinine 0.7 mg/dL (0.5-0.9) 05/13/22 08:55 GFR Calculation 93.6 mL/min (90-130) 05/13/22 08:55 Glucose 114 mg/dL (65-115) 05/13/22 08:55 Calculated Osmolality 279 mOsm/kg (285-295) L 05/13/22 08:55 Calcium 9.5 mg/dL (8.5-10.5) 05/13/22 08:55 Total Bilirubin 0.2 mg/dL (0.15-1.2) 05/13/22 08:55 AST 12 U/L (0-32) 05/13/22 08:55 ALT 9 U/L (0-33) 05/13/22 08:55 Alkaline Phosphatase 149 U/L (35-105) H 05/13/22 08:55 Total Protein 7.7 g/dL (6.6-8.7) 05/13/22 08:55 Albumin 3.4 g/dL (3.5-5.2) L 05/13/22 08:55 Globulin 4.3 g/dL (1.3-4.6) 05/13/22 08:55 Urine Color Yellow (Yellow) 05/13/22 08:50 Urine Appearance Sl hazy (CLEAR) 05/13/22 08:50 Urine pH 5 (5-7) 05/13/22 08:50 Ur Specific [place] 1.020 (1.005-1.030) 05/13/22 08:50 Urine Protein 1+ (Negative) H 05/13/22 08:50 Urine Glucose (UA) Norm (Normal) 05/13/22 08:50 Urine Ketones 1+ (Negative) H 05/13/22 08:50 Urine Blood 2+ (Negative) H 05/13/22 08:50 Urine Nitrate Positive (Negative) H 05/13/22 08:50 Urine Bilirubin 1+ (Negative) H 05/13/22 08:50 Urine Urobilinogen 1 mg/dL (Negative) H 05/13/22 08:50 Ur Leukocyte Esterase 1+ (Negative) H 05/13/22 08:50 Urine RBC None /hpf (0-2) 05/13/22 08:50 Urine WBC >100 /hpf (0-5) H 05/13/22 08:50 Ur Squamous Epith Cells 5-10 /hpf (0-5) H 05/13/22 08:50 Amorphous Sediment Not Reportable 05/13/22 08:50 Urine Bacteria 4+ /hpf (NONE) H 05/13/22 08:50 Urine HCG, Qual Negative (Negative) 05/13/22 08:50 Micro: Results of molecular vaginitis panel [facility] week are available under scanned documents widget in the EMR on 05/12/2022. Results show high amount of enteric coccus species, moderate Klebsiella and Ureaplasma species. Sensitivities for these organisms reveal Levaquin and moxifloxacin are optimal antibiotic coverage due to present of antimicrobial resistance genes indicating possible beta lactamase activity resistance to macrolides, resistance to tetracyclines and resistance to Bactrim. In addition to these organisms bacterial vaginosis associated bacteria also identified as well as [place] species both in moderate quantities. Prescriptions for Levaq uin, Flagyl and terconazole were called into [facility] for the patient by Dr. Riggs. A&P Assessment and plan (1) Pyelonephritis: Classic symptoms of high fever, nausea and vomiting, malaise though without any urinary symptoms beyond right flank pain. Patient was treated with Augmentin earlier this month when her symptoms first started without resolution. She received Rocephin in the emergency room. Organisms identified on the vaginitis panel can also be because of urinary source of infection, including enteroc occus, Klebsiella and Ureaplasma. Follow-up urine culture Levaquin and Rocephin currently Add Flagyl and fluconazole for bacterial vaginosis and [place] species identified Tylenol for fever Continue home meloxicam IV fluids Monitor response to treatment (2) Hypotension: Patient with normal lactic acid and normal white count and other vital signs are currently normal. Cannot presently rule out this being a component of sepsis though she does not look that acutely ill presently. Other possibilities include medication effect though she denies taking any recent clonidine, propranolol or other medicines that classically affect blood pressure. She is small but review of old blood pressures shows normotension. She does have anemia that was not apparent prior to her hysterectomy. No reports of any gross bleeding. Is on chronic meloxicam. Continue IV fluids Levophed as needed, weaning as able Monitor for other signs and symptoms of progressive illness (3) Anemia: Type unknown presently. Normocytic. Normal hemoglobin in November of this year when she had hysterectomy. No reported gross blood loss recently. Chronically on meloxicam. Normal renal function though with evidence of pyelonephritis currently. Could be secondary to inflammation of late with illness over the last month, gastric losses from NSAID therapy among other possibilities. Repeat H&H in the morning after hydration Hemoccult stool Check TIBC PPI (4) Asthma: Well-controlled presently Continue home Combivent and steroid inhaler Qualifiers: Asthma complication type: uncomplicated Asthma persistence: intermittent Asthma severity: mild Qualified Code(s): J45.20 - Mild intermittent asthma, uncomplicated (5) Generalized anxiety disorder: Along with depression. Both well managed currently. Continue home hydroxyzine as needed at a lower dose Continue home bupropion and fluoxetine Hold home clonidine and propranolol (6) Nicotine dependence, unspecified, uncomplicated: Nicotine patch if needed Qualifiers: Nicotine product type: cigarettes Qualified Code(s): F17.210 - Nicotine dependence, cigarettes, uncomplicated Plan Allergies, continue Singulair Fibromyalgia, continue home gabapentin Rheumatoid arthritis history, not on any immunosuppressive agents Inpatient admission Lovenox for DVT prophylaxis Anticipate discharge home with oral antibiotics and outpatient follow-up Full code Attestations Medical Necessity Statement*: Anticipated stay greater than 2 midnights in a patient presenting with pyelonephritis found to have hypotension necessitating pressor support. Issues and other plans of care as noted above. Coding Level of Care Code Acute Audio Visual Production Specialist for Shelbie [facility] Diagnoses Pyelonephritis N12 Hypotension I95.9 Anemia D64.9 Asthma J45.20 Asthma complication type: uncomplicated Asthma persistence: intermittent Asthma severity: mild Generalized anxiety disorder F41.1 Nicotine dependence, unspecified, uncomplicated F17.210 Nicotine product type: cigarettes
--- NOTE | 2022-05-13 14:25 | PC.NURSE ---
To unit Pt brought to unit by ER staff via [facility]. PT ambulated from gurney to bathroom then to bed with standby assist. Pt denies any lightheadedness while up. Pt is on Levophed at 8 from ER, placed on Levo at 2 once settled. Pt is on room air and alert and oriented x4. Pt oriented room and call light is within reach.
[2022-05-13 14:37] LABS: Lactic Sepsis W/Reflex 1.2 mmol/L (0.5-2.2)
[2022-05-13] MEDS: sodium chloride 0.9% 1,000 ML 150 ML IV (15:01)
[2022-05-13] MEDS: enoxaparin 40 mg/0.4 mL Syringe SUBCUT (15:03)
[2022-05-13] MEDS: HYDROcodone-acetaminophen 5-325 mg Tablet 1 TAB PO (15:55)
[2022-05-13] MEDS: docusate sodium 100 mg Capsule PO (17:59)
[2022-05-13] MEDS: fluconazole 100 mg Tablet 150 MG PO (21:34)
[2022-05-13] MEDS: gabapentin 400 mg Capsule PO (21:34)
[2022-05-13] MEDS: nicotine 14 mg Patch 1 PATCH TRANSDERMA (21:34)
[2022-05-13] MEDS: levofloxacin-dextrose 5 % 500 MG/100 ML PREMIX 100 MG IV (21:34)
[2022-05-13] MEDS: D5-NS 0.45% + KCL 20 mEq 20 MEQ/1,000 ML BAG 75 MEQ IV (21:35)
[2022-05-13] MEDS: trazodone 100 mg Tablet PO (21:50)
[2022-05-14] VITALS (131 sets, daily range): BP systolic 72–131; BP diastolic 42–105; PULSE 64–108; RESP 11–40; TEMP 36.7; O2SAT 73–100
[2022-05-14] MEDS: HYDROcodone-acetaminophen 5-325 mg Tablet 1 TAB PO ×4 (00:19→21:16)
[2022-05-14] MEDS: hyDROXYzine 25 mg Capsule PO ×3 (04:06→21:16)
[2022-05-14 04:12] LABS: Basophils % 0.5 %; Eosinophils # 0.1 10^3/uL (0.0-0.8); Eosinophils % 3.2 %; Hematocrit 29.7 % (37.0-47.0); Lymphocytes # 1.5 10^3/uL (0.8-4.8); Lymphocytes % 33.4 %; Mean Corpuscular HGB Conc 30.3 g/dL (30.0-36.0); Mean Corpuscular Hemoglobin 27.1 pg (28.0-34.0); Mean Corpuscular Volume 89.5 fl (81-99); Mean Platelet Volume 11.4 fL (7.4-10.4); Monocytes # 0.6 10^3/uL (0.2-0.9); Monocytes % 13.4 %; Neutrophils # 2.13 10^3/uL (1.8-7.7); Neutrophils % 48.4 %; Nucleated Red Blood Cells % 0 %; Platelet Count 210 10^3/cmm (130-400); Red Blood Count 3.32 10^6/uL (4.1-5.3); Red Cell Distribution Width 15.8 % (12.1-15.1); White Blood Count 4.4 10^3/uL (4.0-10.0)
[2022-05-14 04:38] LABS: Anion Gap 12.5 (5-19); Blood Urea Nitrogen 6 mg/dL (6-20); Calcium 8.4 mg/dL (8.5-10.5); Carbon Dioxide 22 mmol/L (22-29); Chloride 105 mmol/L (98-107); Glomerular Filtration Rate 178.6 mL/min (90-130); Glucose 105 mg/dL (65-115); Iron 19 ug/dL (37-145); Osmolality Calculated 280 mOsm/kg (285-295); Percent Saturation 11.3 % (20-50); Potassium 3.5 mmol/L (3.5-5.1); Sodium 136 mmol/L (136-145); Total Iron Binding Capacity 167 mcg/dl; Unsaturated Iron Binding 148 ug/dL (112-347)
[2022-05-14 04:43] LABS: Partial Thromboplastin Time 26.5 SECONDS (23.9-36.7)
[2022-05-14] MEDS: ondansetron 2 mg/ML SDV 2 mL 4 MG IVP ×2 (08:04→12:24)
[2022-05-14 08:08] LABS: Thyroid Stimulating Hormone 5.06 uIU/mL (0.27-4.20)
[2022-05-14] MEDS: lactobacillus 1 Tablet 1 TAB PO ×2 (08:36→18:06)
[2022-05-14] MEDS: nicotine 14 mg Patch 1 PATCH TRANSDERMA (08:36)
[2022-05-14] MEDS: fluoxetine 20 mg Capsule 40 MG PO (08:36)
[2022-05-14] MEDS: docusate sodium 100 mg Capsule PO ×2 (08:36→18:06)
[2022-05-14] MEDS: metroNIDAZOLE 500 MG Tablet PO ×2 (08:36→18:06)
[2022-05-14] MEDS: buPROPion XL (24 HR) 300 mg Tablet PO (08:36)
[2022-05-14] MEDS: montelukast sodium 10 mg Tablet PO (08:36)
[2022-05-14] MEDS: gabapentin 400 mg Capsule PO ×3 (08:36→21:16)
[2022-05-14] MEDS: pantoprazole DR 40 mg Tablet PO (08:37)
[2022-05-14 09:02] LABS: Cortisol Random 3.13 ug/dL (2.47-19.5)
[2022-05-14] MEDS: meloxicam 7.5 mg tablet 15 MG PO (10:33)
--- NOTE | 2022-05-14 11:27 | PM.PN ---
Subjective Subjective: She is on 2 mics of levo No overnight events She is still dehydrated Change her fluids to normal saline Afebrile No nausea or vomiting overnight Slightly better as compared to yesterday Vitals/I&O/Wt Last Vital Signs Temp 98.1 F 05/14/22 04:40 Pulse 102 H 05/14/22 08:10 Resp 18 05/14/22 10:00 BP 91/56 05/14/22 10:00 Pulse Ox 96 05/14/22 10:00 O2 Del Method 05/14/22 10:00 05/13/22 05/14/22 05/14/22 22:59 06:59 14:59 Intake Total 383.401 / 2466.929 71.628 / 2538.557 Output Total 400 / 400 Balance -16.599 / 2066.929 71.628 / 2138.557 Weight last 48 hrs Weight 42.184 kg Weight 42.184 kg Weight 42.184 kg Physical Exam Narrative: Patient is dehydrated Malnourished Dry cracked lips CVA tenderness positive Awake and alert Abdomen is soft tender around flanks Extremely dehydrated S1, S2 EOMI, PERRLA Nonfocal neuro exam Currently on room air Awake and alert Data : 05/14/22 03:43 05/14/22 03:43 Micro: Microbiology 05/13/22 08:50 Urine Culture - Preliminary Urine,Clean Catch Gram Negative Rods A&P Assessment and plan (1) Generalized anxiety disorder: (2) Moderate episode of recurrent major depressive disorder: (3) Pyelonephritis: (4) Hypotension: Plan Pyelonephritis without sepsis I will discontinue Levaquin and use ceftriaxone Continue Flagyl patient suffered from vaginitis as well Hypotension Dehydration related shock We will have to We will give her extra bolus Wean off vasopressors TSH and cortisol level Free T4 level She did not take steroids at home Propranolol and clonidine on hold Normocytic anemia hemoglobin stable, iron deficiency, will give her iron Asthma without exacerbation, currently doing well on room air Patient currently requiring vasopressors will require 1 more day in the ICU Attestations Medical Necessity Statement*: Continue ICU management Time Spent in Patient Care: 40 Coding Level of Care Code Acute Chemistry Department Chair for [facility] Fwd Diagnoses Generalized anxiety disorder F41.1 Moderate episode of recurrent major depressive disorder F33.1 Pyelonephritis N12 Hypotension I95.9
[2022-05-14] MEDS: acetaminophen 325 mg Tablet 650 MG PO (11:43)
[2022-05-14] MEDS: cefTRIAXone 1,000 MG in sodium chloride 0.9% (plus) 50 ML 100 MG IV (11:43)
[2022-05-14 12:37] LABS: Free T4 Free Thyroxine 1.12 ng/dL (0.82-1.77)
[2022-05-14] MEDS: iron sucrose 200 MG in sodium chloride 0.9% (100 ml) 100 ML 220 MG IV (13:07)
[2022-05-14] MEDS: lactated ringers 1,000 ML 999 ML IV (13:07)
[2022-05-14] MEDS: enoxaparin 40 mg/0.4 mL Syringe SUBCUT (13:45)
--- NOTE | 2022-05-14 14:25 | PC.CHAP ---
Pastoral Care Encounter/Spiritual Assessment Type of Contact [] Declined sales agent fire insurance visit [] Patient/Family/Request visit [] Outpatient visit [] Follow-up visit [] Physician referral [] Code/Alert [] Routine visit [] Staff referral [] Actively dying [] Patient sleeping [] Family support [] [] Out of room [] Palliative care [] [] Receiving care in room [] Pre-surgical visit [] Trauma [] Long length of stay [x] ICU visit [] Other: Relational/Emotional Strength [] Patient feels connected with others/family/visitors/staff [] Distress [] Loneliness/isolation [] Abandonment Spirituality of Patient [] Person of Nicki [] Attends Anabaptism of their Nicki [] Believes in Prayer [] Reads Bible or Voodoo materials [] There are Spiritual issues to be addressed [employer] Cake Decorator Interventions [x] Prayer [] Active listening [] Non-anxious presence [] Spiritual/emotional support [] Crisis/trauma care [] Spiritual counseling [] Bereavement support [] Provided bereavement packet [] Provided Bible/devotional materials [] Provided toy/stuffed animal, coloring book to patient or family member [] Provided Communion [] Anointing/[place] [] Salvation [x] Completed spiritual assessment [] Other: Impact on Illness or Injury [] Angry [] Fearful [] Anxious [] Often cries [] Exhaustion [] Unable to work [] Unable to attend christianity [] Unable to walk/stand [] Unable to read [] Unable to drive [] Unable to eat/drink [] Unable to sleep [] Unable to be with family [] Patient intubated [] Other: Summary Time spent with patient
[2022-05-14] MEDS: trazodone 100 mg Tablet PO (21:17)
[2022-05-15] VITALS (109 sets, daily range): BP systolic 79–122; BP diastolic 46–85; PULSE 73–116; RESP 9–32; TEMP 36.6–36.9; O2SAT 67–100
[2022-05-15 03:51] LABS: Basophils % 0.5 %; Eosinophils # 0.2 10^3/uL (0.0-0.8); Eosinophils % 4.6 %; Hematocrit 31.8 % (37.0-47.0); Hemoglobin 9.7 g/dL (11.5-15.3); Lymphocytes # 1.4 10^3/uL (0.8-4.8); Lymphocytes % 36.7 %; Mean Corpuscular HGB Conc 30.5 g/dL (30.0-36.0); Mean Corpuscular Hemoglobin 27.2 pg (28.0-34.0); Mean Corpuscular Volume 89.3 fl (81-99); Mean Platelet Volume 11.6 fL (7.4-10.4); Monocytes # 0.4 10^3/uL (0.2-0.9); Monocytes % 11.4 %; Neutrophils # 1.68 10^3/uL (1.8-7.7); Neutrophils % 45.7 %; Nucleated Red Blood Cells % 0 %; Platelet Count 275 10^3/cmm (130-400); Red Blood Count 3.56 10^6/uL (4.1-5.3); Red Cell Distribution Width 15.9 % (12.1-15.1); White Blood Count 3.7 10^3/uL (4.0-10.0)
[2022-05-15 04:08] LABS: Blood Urea Nitrogen 3 mg/dL (6-20); Calcium 9.1 mg/dL (8.5-10.5); Carbon Dioxide 25 mmol/L (22-29); Chloride 106 mmol/L (98-107); Glomerular Filtration Rate 138.1 mL/min (90-130); Glucose 97 mg/dL (65-115); Osmolality Calculated 290 mOsm/kg (285-295); Sodium 142 mmol/L (136-145)
[2022-05-15] MEDS: fluoxetine 20 mg Capsule 40 MG PO (08:35)
[2022-05-15] MEDS: gabapentin 400 mg Capsule PO ×3 (08:35→20:25)
[2022-05-15] MEDS: metroNIDAZOLE 500 MG Tablet PO ×3 (08:35→20:25)
[2022-05-15] MEDS: montelukast sodium 10 mg Tablet PO (08:35)
[2022-05-15] MEDS: ondansetron 2 mg/ML SDV 2 mL 4 MG IVP ×2 (08:35→17:06)
[2022-05-15] MEDS: nicotine 14 mg Patch 1 PATCH TRANSDERMA (08:35)
[2022-05-15] MEDS: lactobacillus 1 Tablet 1 TAB PO ×2 (08:35→17:11)
[2022-05-15] MEDS: docusate sodium 100 mg Capsule PO ×2 (08:35→17:11)
[2022-05-15] MEDS: pantoprazole DR 40 mg Tablet PO (08:36)
[2022-05-15] MEDS: buPROPion XL (24 HR) 300 mg Tablet PO (08:37)
[2022-05-15] MEDS: HYDROcodone-acetaminophen 5-325 mg Tablet 1 TAB PO (08:40)
[2022-05-15] MEDS: meloxicam 7.5 mg tablet 15 MG PO (08:40)
--- NOTE | 2022-05-15 10:46 | P.PN_ITS ---
Subjective Subjective: I will give her IV steroids she is requiring Levophed at 4 No sign of sepsis Of cardiogenic shock no signs of PE Is most likely dehydration related shock Patient has taken steroids in October no recent steroid use We will start her on IV steroids to wean her off of Levophed Vitals/I&O/Wt Last Vital Signs Temp 97.8 F 05/15/22 07:00 Pulse 98 05/15/22 09:00 Resp 22 H 05/15/22 09:00 BP 122/71 05/15/22 08:45 Pulse Ox 98 05/15/22 08:45 O2 Del Method 05/15/22 07:50 05/14/22 05/15/22 05/15/22 22:59 06:59 14:59 Intake Total 3775.443 / 3775.443 Balance 3775.443 / 3775.443 Weight last 48 hrs Weight 42.184 kg Weight 42.184 kg Physical Exam Narrative: She is awake and alert S1, S2 No ectopy Looks clinically dehydrated No signs of sepsis or cardiogenic shock She is on room air Awake and alert pain has subsided to significant extent Nonfocal neuro exam Muscle mass loss Data : 05/15/22 03:17 05/15/22 03:17 Micro: Microbiology 05/15/22 08:00 Blood Culture - Preliminary Blood SPECIMEN COLLECTED 05/15/22 07:55 Blood Culture - Preliminary Blood SPECIMEN COLLECTED 05/13/22 08:50 Urine Culture - Preliminary Urine,Clean Catch Gram Negative Rods A&P Assessment and plan (1) Generalized anxiety disorder: (2) Moderate episode of recurrent major depressive disorder: (3) Hypotension: (4) Pyelonephritis: Plan Iron deficiency anemia she has been given a bag of iron yesterday Hemoglobin stable 9.7 Hypotension related to dehydration She is requiring levo She has been on IV fluids I have added IV steroids today to wean off Levophed Pyonephritis without signs of sepsis Cultures negative UTI pyonephritis urine culture showing gram-negative rods Full code She can be transferred out of ICU once off Levophed I am planning to discharge her in next 24 hours Full code Continue cardiac diet Will do cosyntropin test today she does not have typical adrenal insufficiency symptoms Retinitis continue metronidazole Attestations Medical Necessity Statement*: She can be transferred out of ICU once she is off levo Time Spent in Patient Care: Discharge in next 24 hours Coding Level of Care Code Acute Invasive Cardiovascular Technologist for [facility] Fwd Diagnoses Generalized anxiety disorder F41.1 Moderate episode of recurrent major depressive disorder F33.1 Hypotension I95.9 Pyelonephritis N12
[2022-05-15 11:24] LABS: Cosyntropin Baseline 1.53 mcg/dL
[2022-05-15] MEDS: cefTRIAXone 1,000 MG in sodium chloride 0.9% (plus) 50 ML 100 MG IV (11:48)
[2022-05-15] MEDS: cosyntropin 0.25 mg SDV IVP (11:49)
--- NOTE | 2022-05-15 11:49 | PC.CHAP ---
Pastoral Care Encounter/Spiritual Assessment Type of Contact [] Declined district scout executive visit [] Patient/Family/Request visit [] Outpatient visit [] Follow-up visit [] Physician referral [] Code/Alert [x] Routine visit [] Staff referral [] Actively dying [] Patient sleeping [] Family support [] [] Out of room [] Palliative care [] [x] Receiving care in room [] Pre-surgical visit [] Trauma [] Long length of stay [x] ICU visit [] Other: Relational/Emotional Strength [] Patient feels connected with others/family/visitors/staff [] Distress [] Loneliness/isolation [] Abandonment Spirituality of Patient [] Person of Nicki [] Attends Druze of their Nicki [] Believes in Prayer [] Reads Bible or Taoist materials [] There are Spiritual issues to be addressed Computer Publisher Interventions [x] Prayer [] Active listening [] Non-anxious presence [] Spiritual/emotional support [] Crisis/trauma care [] Spiritual counseling [] Bereavement support [] Provided bereavement packet [] Provided Bible/devotional materials [] Provided toy/stuffed animal, coloring book to patient or family member [] Provided Communion [] Anointing/[place] [] Salvation [x] Completed spiritual assessment [] Other: Impact on Illness or Injury [] Angry [] Fearful [] Anxious [] Often cries [] Exhaustion [] Unable to work [] Unable to attend catholic [] Unable to walk/stand [] Unable to read [] Unable to drive [] Unable to eat/drink [] Unable to sleep [] Unable to be with family [] Patient intubated [] Other: Summary Time spent with patient
[2022-05-15] MEDS: sodium chloride 0.9% 1,000 ML 100 ML IV ×2 (11:50→20:25)
[2022-05-15 13:15] LABS: Cosyntropin 30 Minute 18.74 mcg/dL
[2022-05-15 13:40] LABS: Cosyntropin 1 Hour 22.04 mcg/dL
[2022-05-15] MEDS: ketorolac 30 mg/mL INJ 15 MG IVP ×2 (13:56→20:24)
[2022-05-15] MEDS: enoxaparin 40 mg/0.4 mL Syringe SUBCUT (13:56)
[2022-05-15] MEDS: hydrocortisone 100 mg/2 mL SDV IVP ×2 (13:57→22:08)
--- NOTE | 2022-05-15 15:08 | USCV_ITS ---
Stephanie Molina Age: 37 Gender: F : 1985 Exam Date: 05/15/2022 15:32 Ordering Phys: Guillermo Aguirre MD Technologist: Joe Goff [place] [facility] [place]: chest pain BP: 123 / 68 HR: 87 Rhythm: Sinus Technical Quality: Adequate MEASUREMENTS (Male / Female) Normal Values 2D ECHO LV Diastolic Diameter PLAX 4.4 cm 4.2 - 5.9 / 3.9 - 5.3 cm LV Systolic Diameter PLAX 3.1 cm IVS Diastolic Thickness 0.8 cm 0.6 - 1.0 / 0.6 - 0.9 cm IVS Systolic Thickness 0.9 cm LVPW Diastolic Thickness 0.9 cm 0.6 - 1.0 / 0.6 - 0.9 cm LVPW Systolic Thickness 1.3 cm LVOT Diameter 2.1 cm LV Ejection Fraction 2D Teich 56.6 % LV Ejection Fraction MOD 2C 64.2 % LV Ejection Fraction 2C AL 65.9 % LA Diameter 2.5 cm IVC Diameter 1.1 cm M-MODE Aortic Annulus Diameter 2.5 cm LA Ao Ratio MM 1.0 MV E Point Septal Separation 1.0 cm DOPPLER AV Peak Velocity 126.0 cm/s LVOT Peak Velocity 102.0 cm/s AV Area Cont Eq vti 3.0 cm squared AV Area Cont Eq pk 2.8 cm squared MV Area PHT 3.9 cm squared Mitral E to A Ratio 1.1 MV E' Velocity 91.4 cm/s Mitral E to MV E' Ratio 7.6 Mitral E to LV E' Lateral Ratio 6.9 Mitral E to LV E' Septal Ratio 8.5 TR Peak Velocity 103.0 cm/s TR Peak Gradient 4.2 mmHg TV Peak E Velocity 79.0 cm/s Right Atrial Pressure 3.0 mmHg Pulmonary Artery Systolic Pressu 7.2 mmHg PV Peak Velocity 101.0 cm/s RV Acceleration Time 0.2 s FINDINGS Left Ventricle Normal left ventricular size and systolic function, EF 66 %. Relative hypokinesia of the basal and mid septal segments Right Ventricle The right ventricle is normal in size and function. Right Atrium The right atrium is normal in size. Left Atrium The left atrium is normal in size. Mitral Valve Mild mitral valve regurgitation. Aortic Valve Tricuspid Valve No gross abnormalities noted Pulmonic Valve No gross abnormalities noted Pericardium No pericardial effusion Aorta Normal aortic annulus size. IVC The inferior vena cava appears normal. CONCLUSIONS Normal left ventricular size and systolic function, EF 66 %. Relative hypokinesia of the basal and mid septal segments. Mild mitral valve regurgitation. No intracardiac masses. No pericardial effusion. The wall motion of abnormality, could suggest coronary ischemia, consider further work-up. No similar previous studies are available for comparison. Dr. Aguirre was informed about the finding Dr Jorge Stuart MD [facility] (Electronically Signed) Final Date: 16 May 2022 18:09 S
[2022-05-15] MEDS: midodrine 5 mg TABLET PO ×2 (16:33→20:25)
[2022-05-15 16:40] LABS: D Dimer 1.66 ug/mIFEU (0-0.59)
[2022-05-15] MEDS: acetaminophen 325 mg Tablet 650 MG PO (17:11)
[2022-05-16] VITALS (14 sets, daily range): BP systolic 92–120; BP diastolic 53–97; PULSE 79–102; RESP 14–26; TEMP 36.6–37.1; O2SAT 91–100
[2022-05-16] MEDS: ketorolac 30 mg/mL INJ 15 MG IVP ×2 (00:17→06:03)
--- NOTE | 2022-05-16 00:51 | PC.NURSE ---
During rounds, this RN checked on patient, patient stated that she was upset. Per patient, when her boyfriend arrived home with her chidren, CPS and police was at patient's home for an investigation. Patient wanted to know if CPS and police would be able to come in and interview her. This RN asked storehouse clerk about what would occur should someone come to the hospital wanted to interview patient. Per storehouse clerk, should the police/CPS know patient was already here, we would not be allowed to interfere with an investigation, however we would not be able to inform them that she was here if they were unaware. Relayed this to patient, who confirmed that her boyfriend had informed the police/CPS that patient was currently in ICU.
[2022-05-16] MEDS: sodium chloride 0.9% 1,000 ML 100 ML IV (06:00)
[2022-05-16] MEDS: ondansetron 2 mg/ML SDV 2 mL 4 MG IVP (07:49)
--- NOTE | 2022-05-16 07:50 | CTR_ITS ---
PROCEDURE INFORMATION: Exam: CTA Chest With Contrast Exam date and time: 05/16/2022 8:51 AM Age: 37 years old Clinical indication: Dyspnea; Patient HX: D-dimer; Additional info: Hypotension TECHNIQUE: Imaging protocol: Computed tomographic angiography of the chest with contrast. 3D rendering (Not supervised by radiologist): MIP and/or 3D reconstructed images were created by the technologist. Radiation optimization: All CT scans at this facility use at least one of these dose optimization techniques: automated exposure control; mA and/or kV adjustment per patient size (includes targeted exams where dose is matched to clinical indication); or iterative reconstruction. Contrast material: OMNI 350; Contrast volume: 95 ml; Contrast route: INTRAVENOUS (IV); COMPARISON: CR XR chest 1V portable [id number] 12/12/2021 11:05 AM RADIATION DOSE METRICS: Total DLP (mGy-cm): 142.61 FINDINGS: Pulmonary arteries: No CT evidence for segmental pulmonary emboli. The main pulmonary arteries and outflow trunk are unremarkable. Aorta: No thoracic aortic aneurysm. No thoracic aortic dissection. Trachea: The central airway is normal. Lungs: There are normal lung volumes. There is no CT evidence of interstitial lung disease. There is no consolidation. Minimal dependent atelectasis is seen. Pleural spaces: No pneumothorax. No pleural effusion. Heart: The heart size is within normal limits. The RV/LV ratio is normal (no CT evidence of RV strain). There is no pericardial effusion. No coronary arterial atherosclerotic vascular calcifications. Lymph nodes: No enlarged lymph nodes. Bones/joints: No acute osseous abnormalities. Soft tissues: Unremarkable. CT/CT angio chest PE protcl [id number] IMPRESSION: 1. No CTA evidence of pulmonary embolism, thoracic aortic aneurysm or thoracic aortic dissection. 2. No CT evidence of pneumonia. Minimal dependent atelectasis.
[2022-05-16] MEDS: iohexol 350 mg/mL 100 mL Btl IV (09:02)
[2022-05-16] MEDS: gabapentin 400 mg Capsule PO (09:08)
[2022-05-16] MEDS: montelukast sodium 10 mg Tablet PO (09:08)
[2022-05-16] MEDS: metroNIDAZOLE 500 MG Tablet PO (09:09)
[2022-05-16] MEDS: pantoprazole DR 40 mg Tablet PO (09:09)
[2022-05-16] MEDS: lactobacillus 1 Tablet 1 TAB PO (09:09)
[2022-05-16] MEDS: buPROPion XL (24 HR) 300 mg Tablet PO (09:09)
[2022-05-16] MEDS: docusate sodium 100 mg Capsule PO (09:09)
[2022-05-16] MEDS: nicotine 14 mg Patch 1 PATCH TRANSDERMA (09:09)
[2022-05-16] MEDS: midodrine 5 mg TABLET PO (09:09)
[2022-05-16] MEDS: meloxicam 7.5 mg tablet 15 MG PO (09:10)
--- NOTE | 2022-05-16 10:06 | PC.CHAP ---
Pastoral Care Encounter/Spiritual Assessment Type of Contact [] Declined chef de partie visit [] Patient/Family/Request visit [] Outpatient visit [] Follow-up visit [] Physician referral [] Code/Alert [x] Routine visit [] Staff referral [] Actively dying [x] Patient sleeping [] Family support [] [] Out of room [] Palliative care [] [] Receiving care in room [] Pre-surgical visit [] Trauma [] Long length of stay [x] ICU visit [] Other: Relational/Emotional Strength [] Patient feels connected with others/family/visitors/staff [] Distress [] Loneliness/isolation [] Abandonment Spirituality of Patient [] Person of Nicki [] Attends Mormon of their Nicki [] Believes in Prayer [] Reads Bible or Druze materials [] There are Spiritual issues to be addressed Colorist Photography Interventions [x] Prayer [] Active listening [] Non-anxious presence [] Spiritual/emotional support [] Crisis/trauma care [] Spiritual counseling [] Bereavement support [] Provided bereavement packet [] Provided Bible/devotional materials [] Provided toy/stuffed animal, coloring book to patient or family member [] Provided Communion [] Anointing/[facility] [] Salvation [x] Completed spiritual assessment [] Other: Impact on Illness or Injury [] Angry [] Fearful [] Anxious [] Often cries [] Exhaustion [] Unable to work [] Unable to attend nondenominational [] Unable to walk/stand [] Unable to read [] Unable to drive [] Unable to eat/drink [] Unable to sleep [] Unable to be with family [] Patient intubated [] Other: Summary Time spent with patient
[2022-05-16] MEDS: acetaminophen 325 mg Tablet 650 MG PO (10:37)
[2022-05-16] MEDS: hydrocortisone 100 mg/2 mL SDV IVP (10:38)
[2022-05-16] MEDS: cefTRIAXone 1,000 MG in sodium chloride 0.9% (plus) 50 ML 100 MG IV (10:38)
--- NOTE | 2022-05-16 10:45 | P.DS_ITS ---
Discharge Providers Date of Admission: 05/13/22 12:53 Date of Discharge: May 16, 2022 Attending Provider at Admission: Hailey Shukla MD Attending Provider at Discharge: Guillermo Aguirre MD Primary Care Provider: MARICRUZ Posada Diagnoses at Discharge Discharge Diagnosis (1) Generalized anxiety disorder: Status: Chronic (2) Moderate episode of recurrent major depressive disorder: Status: Acute (3) Hypotension: Status: Acute (4) Pyelonephritis: Status: Acute Reason for Visit Reason for Visit: chills, fever, sharp pain on right side Hospital Course Hospital Course 37-year-old female who was admitted for management of pyelonephritis, she remained afebrile no worsening leukocytosis she takes clonidine at home, it requ est almost 48 hours to wean off vasopressors she was not septic no signs of cardiomyopathy or PE. D-dimer was high that is why CTA chest was requested at the time of discharge. Blood cultures negative. Urine culture showed ESBL E. coli. Sensitive to Levaquin and ciprofloxacin. I will give her 10-day regimen of levofloxacin for pyelonephritis. Patient has been requested not to take clonidine. At the time of discharge blood pressure is 140/91 vasopressors were turned off on 05/15 around 3 PM. Her echo report is pending. Physical Exam Narrative: She is awake and alert S1, S2 No ectopy Looks clinically dehydrated and malnourished No signs of sepsis or cardiogenic shock She is on room air Awake and alert pain has subsided to significant extent Nonfocal neuro exam Muscle mass loss Discharge Data Studies Completed and Pending Completed Studies During Hospitalization Category Date Time Status CT abdomen pelvis w con* [id number] Stat Cat Scan 05/13/22 09:57 Completed CTA PE [CT angio chest PE protcl [id number]] Routine Cat Scan 05/16/22 07:50 Completed Pending at discharge Category Date Time Status Blood Culture Stat Lab 05/15/22 08:00 Results Immunochemical Fecal OCB Routine Lab 05/13/22 21:59 Uncollected CV. echo complete* [id number] Routine Ultrasound 05/15/22 15:08 Taken Radiology Impressions Abdomen/Pelvis CT 05/13/22 09:57 IMPRESSION: 1. Bilateral diffuse renal cortical wedge-shaped hypodensities. Most typical for pyelonephritis. 2. No renal obstruction. 3. Normal appendix. 4. Hepatic hemangioma measures 14 mm. Chest CTA 05/16/22 07:50 IMPRESSION: 1. No CTA evidence of pulmonary embolism, thoracic aortic aneurysm or thoracic aortic dissection. 2. No CT evidence of pneumonia. Minimal dependent atelectasis. Laboratory Results WBC 3.7 10^3/uL (4.0-10.0) L 05/15/22 03:17 RBC 3.56 10^6/uL (4.1-5.3) L 05/15/22 03:17 Hgb 9.7 g/dL (11.5-15.3) L 05/15/22 03:17 Hct 31.8 % (37.0-47.0) L 05/15/22 03:17 MCV 89.3 fl (81-99) 05/15/22 03:17 MCH 27.2 pg (28.0-34.0) L 05/15/22 03:17 MCHC 30.5 g/dL (30.0-36.0) 05/15/22 03:17 RDW 15.9 % (12.1-15.1) H 05/15/22 03:17 Plt Count 275 10^3/cmm (130-400) D 05/15/22 03:17 MPV 11.6 fL (7.4-10.4) H 05/15/22 03:17 Neut % (Auto) 45.7 % 05/15/22 03:17 Lymph % (Auto) 36.7 % 05/15/22 03:17 [place] % (Auto) 11.4 % 05/15/22 03:17 Eos % (Auto) 4.6 % 05/15/22 03:17 Baso % (Auto) 0.5 % 05/15/22 03:17 Neut # (Auto) 1.68 10^3/uL (1.8-7.7) L 05/15/22 03:17 Lymph # (Auto) 1.4 10^3/uL (0.8-4.8) 05/15/22 03:17 [place] # (Auto) 0.4 10^3/uL (0.2-0.9) 05/15/22 03:17 Eos # (Auto) 0.2 10^3/uL (0.0-0.8) 05/15/22 03:17 Baso # (Auto) 0.0 10^3/uL (0.0-0.1) 05/15/22 03:17 Nucleated RBC % (auto) 0 % 05/15/22 03:17 Nucleated RBCs # 0.0 /100WBC 05/15/22 03:17 PT 14.50 SECONDS (12.1-14.9) 05/14/22 03:43 INR 1.10 (0.8-1.2) 05/14/22 03:43 APTT 26.5 SECONDS (23.9-36.7) 05/14/22 03:43 D-Dimer 1.66 ug/mIFEU (0-0.59) H 05/15/22 16:05 Sodium 142 mmol/L (136-145) 05/15/22 03:17 Potassium 4.0 mmol/L (3.5-5.1) 05/15/22 03:17 Chloride 106 mmol/L (98-107) 05/15/22 03:17 Carbon Dioxide 25 mmol/L (22-29) 05/15/22 03:17 Anion Gap 15.0 (5-19) 05/15/22 03:17 BUN 3 mg/dL (6-20) L 05/15/22 03:17 Creatinine 0.5 mg/dL (0.5-0.9) 05/15/22 03:17 GFR Calculation 138.1 mL/min (90-130) H 05/15/22 03:17 Glucose 97 mg/dL (65-115) 05/15/22 03:17 Calculated Osmolality 290 mOsm/kg (285-295) 05/15/22 03:17 Lactic Acid 1.2 mmol/L (0.5-2.2) 05/13/22 14:04 Calcium 9.1 mg/dL (8.5-10.5) 05/15/22 03:17 Iron 19 ug/dL (37-145) L 05/14/22 03:43 TIBC 167 mcg/dl 05/14/22 03:43 % Saturation 11.3 % (20-50) L 05/14/22 03:43 Unsat Iron Binding 148 ug/dL (112-347) 05/14/22 03:43 Total Bilirubin 0.2 mg/dL (0.15-1.2) 05/13/22 08:55 AST 12 U/L (0-32) 05/13/22 08:55 ALT 9 U/L (0-33) 05/13/22 08:55 Alkaline Phosphatase 149 U/L (35-105) H 05/13/22 08:55 Total Protein 7.7 g/dL (6.6-8.7) 05/13/22 08:55 Albumin 3.4 g/dL (3.5-5.2) L 05/13/22 08:55 Globulin 4.3 g/dL (1.3-4.6) 05/13/22 08:55 TSH 5.06 uIU/mL (0.27-4.20) H 05/14/22 03:43 Free T4 1.12 ng/dL (0.82-1.77) 05/14/22 03:43 Random Cortisol 3.13 ug/dL (2.47-19.5) 05/14/22 03:43 Cortisol Response 05/15/22 03:17 Urine Color Yellow (Yellow) 05/13/22 08:50 Urine Appearance Sl hazy (CLEAR) 05/13/22 08:50 Urine pH 5 (5-7) 05/13/22 08:50 Ur Specific [place] 1.020 (1.005-1.030) 05/13/22 08:50 Urine Protein 1+ (Negative) H 05/13/22 08:50 Urine Glucose (UA) Norm (Normal) 05/13/22 08:50 Urine Ketones 1+ (Negative) H 05/13/22 08:50 Urine Blood 2+ (Negative) H 05/13/22 08:50 Urine Nitrate Positive (Negative) H 05/13/22 08:50 Urine Bilirubin 1+ (Negative) H 05/13/22 08:50 Urine Urobilinogen 1 mg/dL (Negative) H 05/13/22 08:50 Ur Leukocyte Esterase 1+ (Negative) H 05/13/22 08:50 Urine RBC None /hpf (0-2) 05/13/22 08:50 Urine WBC >100 /hpf (0-5) H 05/13/22 08:50 Ur Squamous Epith Cells 5-10 /hpf (0-5) H 05/13/22 08:50 Amorphous Sediment Not Reportable 05/13/22 08:50 Urine Bacteria 4+ /hpf (NONE) H 05/13/22 08:50 Urine HCG, Qual Negative (Negative) 05/13/22 08:50 Vitals Last Vital Signs Temp 97.8 F 05/16/22 07:00 Pulse 102 H 05/16/22 09:02 Resp 19 H 05/16/22 09:02 BP 116/80 05/16/22 09:02 Pulse Ox 100 05/16/22 09:02 O2 Del Method 05/16/22 08:02 Discharge Plan Discharge Patient Disposition: Home Condition: Stable Prescriptions: New levofloxacin 750 mg tablet 750 mg PO DAILY 10 Days Qty: 10 0RF Continued montelukast 10 mg tablet 10 mg PO DAILY meloxicam 15 mg tablet 15 mg PO DAILY cyclobenzaprine 10 mg tablet 10 mg PO BID PRN (Reason: muscle spasm) Combivent Respimat 20-100 mcg/actuation mist 1 puff inhalation QID PRN (Reason: shortness of breath) gabapentin 400 mg capsule 400 mg PO TID Qty: 90 2RF All Day Allergy (cetirizine) 10 mg capsule 10 mg PO DAILY PRN (Reason: Allergy Symptoms) fluticasone propionate [Flonase Allergy Relief] 50 mcg/actuation spray,suspension 1 spray intranasal DAILY Rx Instructions: administer into each nostril budesonide-formoterol [Symbicort] 160-4.5 mcg/actuation HFA aerosol inhaler 2 puff inhalation BID bupropion HCl [Wellbutrin XL] 300 mg tablet extended release 24 hr 300 mg PO QAM Qty: 30 2RF fluoxetine [Prozac] 40 mg capsule 40 mg PO DAILY Qty: 30 2RF naltrexone 50 mg tablet 50 mg PO DAILY Qty: 30 2RF Hair,Nails and Skin Vitamin Tablet 1 tab PO DAILY hydroxyzine HCl 50 mg tablet 50 mg PO QID PRN (Reason: anxiety first) Held propranolol 10 mg tablet 10 mg PO BID PRN (Reason: tremors) Hold Instructions: Resume on 05/19/22. trazodone 100 mg tablet 200 mg PO BEDTIME PRN (Reason: insomnia) Hold Instructions: Resume on 05/19/22. Discontinued clonidine HCl 0.1 mg tablet 0.1 mg PO DAILY PRN (Reason: Anxiety second) Discharge Orders: Discharge Order (Routine); Ordered 05/16/22 Ordered By: Guillermo Aguirre Referrals: Skyler Lobo FNP [Primary Care Provider] - 7-10 days Discharge Diet: Cardiac Discharge Activity: Increase activity as tolerated Patient Instructions: Opioid Safety Discharge Attestations Time Spent in Discharge Care*: less than 30 min Quality Metrics Clinical Quality Measures [ No reported AMI, CVA or VTE this stay] Coding Level of Care Code Acute Chg FW DC note Diagnoses Generalized anxiety disorder F41.1 Moderate episode of recurrent major depressive disorder F33.1 Hypotension I95.9 Pyelonephritis N12
== END 2022-05-16 13:34 | disposition home or self-care (01) | DRG 690 ==
LOC: ER 09:52 → ICU 13:17
PROVIDERS: Admitting Provider Hospitalist; Emergency Provider Family Medicine; PCP Nurse Practitioner; Visit Provider Internal Medicine
DX: N12 Tubulo-interstitial nephritis, not specified as acute or chronic (principal); F33.1 Major depressive disorder, recurrent, moderate; N39.0 Urinary tract infection, site not specified; B96.20 Unspecified Escherichia coli [E. coli] as the cause of diseases classified elsewhere; I95.9 Hypotension, unspecified; J45.20 Mild intermittent asthma, uncomplicated; M79.7 Fibromyalgia; F41.1 Generalized anxiety disorder; M06.9 Rheumatoid arthritis, unspecified; F17.210 Nicotine dependence, cigarettes, uncomplicated; D50.9 Iron deficiency anemia, unspecified; E86.0 Dehydration
CPT/HCPCS: 36415; 71275; 74177; 80048; 80053; 81001; 81025; 82533; 83540; 83550; 83605; 84439; 84443; 85025; 85378; 85610; 85730; 87040; 87077; 87086; 87186; 93306; 94640; 96372; J0696; J0834; J1650; J1720; J1756; J1885; J1956; J2270; J2405; J7030; Q9967

== ENCOUNTER 2022-10-09 09:10 | Outpatient (CLI) | payer MEDICAID, SELFPAY ==
[2022-10-10 18:05] LABS: Alternaria Alternata (M6) Ige <0.10 kU/L; Alternaria Class 0; Bermuda Class 0; Bermuda Grass (G2) Ige <0.10 kU/L; Cat Dander (E1) Ige <0.10 kU/L; Cat Dander Class 0; Common Ragweed (Short) (W1) Ig <0.10 kU/L; D. Farinae Class 0; Dermatophagoides Class 0; Dermatophagoides Farinae (D2) <0.10 kU/L; Dermatophagoides Pteronyssinus <0.10 kU/L; Dog Dander (E5) Ige <0.10 kU/L; Dog Dander Class 0; Elm (T8) Ige <0.10 kU/L; Elm Class 0; English Plantain (W9) Ige <0.10 kU/L; English Plantain Class 0; House Dust (Greer) (H1) Ige <0.10 kU/L; House Dust (Hollister- Stier) <0.10 kU/L; House Dust Class 0; Immunoglobulin E 18 kU/L (<OR=114); Johnson Grass (G10) Ige <0.10 kU/L; Johnson Grass Cl 0; June Grass Class 0; June Grass(Kentucky Blue) (G8) <0.10 kU/L; Lamb'S Quarters (Goose Foot) <0.10 kU/L; Lamb'S Quarters Class 0; Maple (Box Elder) (T1) Ige <0.10 kU/L; Maple Class 0; Meadow Fescue (G4) Ige <0.10 kU/L; Meadow Fescue Class 0; Mucor Racemosus Class 0; Oak (T7) Ige <0.10 kU/L; Oak Class 0; Orchard Grass (Cocksfoot) (G3) <0.10 kU/L; Penicillium Class 0; Penicillium Notatum (M1) Ige <0.10 kU/L; Perennial Rye Grass (G5) Ige <0.10 kU/L; Perennial Rye Grass Class 0; Ragweeed Class 0; Rough Marsh Elder (W16) Ige <0.10 kU/L; Rough Marsh Elder Class 0; Sweet Vernal Class 0; Sweet Vernal Grass (G1) Ige <0.10 kU/L; Timothy Grass (G6) Ige <0.10 kU/L; Timothy Grass Class 0
[2022-10-13 18:10] LABS: Aspergillus Fumigatus, Igg Ab, 4.7 mg/L (<=102)
== END 2022-10-09 09:11 | disposition home or self-care (01) ==
LOC: LAB 09:12
PROVIDERS: PCP Nurse Practitioner; Visit Provider Internal Medicine Pulmonary Disease
DX: R06.02 Shortness of breath (principal); Z79.899 Other long term (current) drug therapy
CPT/HCPCS: 36415; 82785; 86003

== ENCOUNTER 2023-03-19 23:35 | Emergency (ER) | payer MEDICAID, SELFPAY ==
[2023-03-19 23:35] VITALS: BP 101/76; PULSE 85; RESP 20; TEMP 37.1; O2SAT 100; BMI 20.5
--- NOTE | 2023-03-19 23:44 | XRR_ITS ---
PROCEDURE INFORMATION: Exam: XR Chest Exam date and time: 03/19/2023 11:47 PM Age: 38 years old Clinical indication: Pain; Angina pectoris; Additional info: Cp TECHNIQUE: Imaging protocol: Radiologic exam of the chest. Views: 1 view. COMPARISON: CR XR chest 1V portable [id number] 12/12/2021 11:05 AM FINDINGS: Lungs: Clear, symmetrically inflated lungs. Pleural spaces: No pleural effusion. No pneumothorax. Heart/Mediastinum: Cardiac silhouette is normal in size for technique. Bones/joints: Age appropriate. XR/XR chest 1V portable [id number] IMPRESSION: No acute cardiopulmonary abnormality.
--- NOTE | 2023-03-19 23:44 | ECG_ITS ---
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 Measurements Intervals [place] Rate: 79 P: 68 NV: 140 QRS: 75 QRSD: 109 T: 61 QT: 374 QTc: 430 Interpretive Statements SINUS RHYTHM INCOMPLETE RIGHT BUNDLE BRANCH BLOCK [90+ ms QRS DURATION, TERMINAL R IN V1/V2, 40+ ms S IN I/aVL/V4/V5/V6] No previous ECG available for comparison Electronically Signed On 03-20-2023 13:39:20 CDT by Mony Evangelista M.D. [id number]
--- NOTE | 2023-03-19 23:48 | ED_ITS ---
HPI - Chest Pain General: Chief Complaint: Chest Pain Stated Complaint: CHEST PAIN Time Seen by Provider: 03/19/23 23:39 Source: patient Mode of arrival: ambulatory Limitations: no limitations History of Present Illness: 38-year-old female states she has been having a sharp chest pain since 9 PM. She states the pain is worse with deep breath along with palpation. States pains in the center of her chest. She denies any nausea vomiting she denies any diaphoresis. She has a history of COPD she states her pain currently is a 3 out of 10. Did receive aspirin in route. Associated symptoms: Deny abdominal pain, dyspnea, fever(s), nausea or vomiting Review of Systems Const: Denies: fever(s), chills, body aches or change in appetite ENMT: Denies: throat pain or dental pain Card: Reports: chest pain Resp: Denies: dyspnea GI: Denies: abdominal pain, nausea, vomiting or diarrhea Musc: Denies: neck pain or back pain Skin/Breast: Denies: rash Neuro: Denies: headache(s) PFSH ED PFSH: Medical History Allergies Anemia Asthma Depression Fibromyalgia Generalized anxiety disorder 3 para 3 History of ovarian cyst Hypotension Moderate episode of recurrent major depressive disorder Nicotine dependence, unspecified, uncomplicated PCOS (polycystic ovarian syndrome) Psychiatric care Pyelonephritis Rheumatoid arthritis Surgical History History of colonoscopy History of hernia repair History of hysterectomy (11/19/21) Laparoscopic assisted vaginal hysterectomy with bilateral salpingectomy and take down of omental adhesions. Dr Riggs History of hysteroscopy (10/22/21) hysteroscopy, dilation and curettage with myosure. Dr Riggs History of loop electrical excision procedure (LEEP) History of rotator cuff surgery right arm Family History Mother CAD (coronary artery disease) Father Cancer agent orange Denies family history of Diabetes Clotting disorder Hyperlipidemia Chronic kidney disease (CKD) Bleeding disorder Hypertension Thyroid disease Stroke Social History Smoking and tobacco status: current every day smoker cigarettes Packs smoked per day: 1 Years cigarettes smoked: 20 [ Other cigarette details: started at age 17] Physical Exam Const: COMMON NORMALS: no acute distress, patient oriented x3 and healthy a ppearing HENMT: COMMON NORMALS: normocephalic and atraumatic HEAD & SCALP: normocephalic and atraumatic Neck/C-Spine: COMMON NORMALS: full ROM and supple Chest: COMMONS NORMALS: normal inspection of the chest OTHER: Point tender in center of chest Resp: COMMON NORMALS: normal respiratory effort, No retractions, No use of accessory muscles and clear to auscultation bilaterally AUSCULTATION: clear to auscultation bilaterally Cardio: COMMON NORMALS: regular rate, regular rhythm and No murmurs present (Cardio) RATE: regular rate RHYTHM: regular rhythm GI: COMMON NORMALS: Normal to inspection, nondistended, normoactive bowel sounds present, Soft to palpation, non-tender and no masses PALPATION: Yes Soft to palpation Extremity: COMMON NORMALS: normal to inspection and full ROM Neuro: COMMON NORMALS: patient oriented x3, moves all extremities and no focal motor deficits Psych: COMMON NORMALS: mental status grossly normal, Normal thought process present and cooperative THOUGHT PROCESS: Normal thought process present Skin: COMMON NORMALS: no rashes or lesions noted and no wounds GENERAL SKIN EXAM: no rashes or lesions noted Course Vital Signs: Vital signs: Vital Signs Temperature 98.7 F 03/19/23 23:35 Pulse Rate 72 03/20/23 01:05 Respiratory Rate 13 03/20/23 01:05 Blood Pressure 105/83 03/20/23 01:05 Pulse Oximetry 100 03/20/23 01:05 Oxygen Delivery Me thod Room Air 03/19/23 23:35 MDM - Chest Pain Medical Decision Making Patient presents here with chest pains likely chest wall pain she is point tender on exam her troponins here are normal x-rays normal she feels improved after Toradol she is stable for discharge she is to follow-up with PCP and return if worsening Medical Records I reviewed the patient's medical records. Lab Data I reviewed the patient's lab results. 03/19/23 23:52 03/19/23 23:52 Radiology Impressions Chest X-Ray 03/19/23 23:44 IMPRESSION: No acute cardiopulmonary abnormality. Laboratory Results WBC 5.5 10^3/uL (4.0-10.0) 03/19/23 23:52 RBC 4.15 10^6/uL (4.1-5.3) 03/19/23 23:52 Hgb 12.6 g/dL (11.5-15.3) 03/19/23 23:52 Hct 38.0 % (37.0-47.0) 03/19/23 23:52 MCV 91.6 fl (81-99) 03/19/23 23:52 MCH 30.4 pg (28.0-34.0) 03/19/23 23:52 MCHC 33.2 g/dL (30.0-36.0) 03/19/23 23:52 RDW 13.3 % (12.1-15.1) 03/19/23 23:52 Plt Count 166 10^3/cmm (130-400) 03/19/23 23:52 MPV 11.6 fL (7.4-10.4) H 03/19/23 23:52 Neut % (Auto) 48.4 % 03/19/23 23:52 Lymph % (Auto) 38.4 % 03/19/23 23:52 [place] % (Auto) 9.6 % 03/19/23 23:52 Eos % (Auto) 2.5 % 03/19/23 23:52 Baso % (Auto) 0.7 % 03/19/23 23:52 Neut # (Auto) 2.67 10^3/uL (1.8-7.7) 03/19/23 23:52 Lymph # (Auto) 2.1 10^3/uL (0.8-4.8) 03/19/23 23:52 [place] # (Auto) 0.5 10^3/uL (0.2-0.9) 03/19/23 23:52 Eos # (Auto) 0.1 10^3/uL (0.0-0.8) 03/19/23 23:52 Baso # (Auto) 0.0 10^3/uL (0.0-0.1) 03/19/23 23:52 Nucleated RBC % (auto) 0 % 03/19/23 23: Nucleated RBCs # 0.0 /100WBC 03/19/23 23:52 PT 12.20 SECONDS (12.1-14.9) 03/19/23 23:52 INR 0.88 (0.8-1.2) 03/19/23 23:52 Sodium 137 mmol/L (136-145) 03/19/23 23:52 Potassium 4.2 mmol/L (3.5-5.1) 03/19/23 23:52 Chloride 105 mmol/L (98-107) 03/19/23 23:52 Carbon Dioxide 23 mmol/L (22-29) 03/19/23 23:52 Anion Gap 13.2 (5-19) 03/19/23 23:52 BUN 16 mg/dL (6-20) 03/19/23 23:52 Creatinine 0.6 mg/dL (0.5-0.9) 03/19/23 23:52 GFR Calculation 111.3 mL/min (90-130) 03/19/23 23:52 Glucose 103 mg/dL (65-115) 03/19/23 23:52 Calculated Osmolality 285 mOsm/kg (285-295) 03/19/23 23:52 Calcium 8.8 mg/dL (8.5-10.5) 03/19/23 23:52 Total Bilirubin 0.2 mg/dL (0.15-1.2) 03/19/23 23:52 AST 13 U/L (0-32) 03/19/23 23:52 ALT 7 U/L (0-33) 03/19/23 23:52 Alkaline Phosphatase 61 U/L (35-105) 03/19/23 23:52 Troponin T Baseline 6 ng/L (0-10) 03/19/23 23:52 Troponin T 120 Minute 6.00 ng/L (0-10) 03/20/23 01:38 Total Protein 5.9 g/dL (6.6-8.7) L 03/19/23 23:52 Albumin 4.1 g/dL (3.5-5.2) 03/19/23 23:52 Globulin 1.8 g/dL (1.3-4.6) 03/19/23 23:52 Lipase 25 U/L (13-60) 03/19/23 23:52 EKG Data EKG 1: I personally reviewed and interpreted this EKG as follows: EKG interpretation date: 08/03/23 EKG interpretation time: 23:44 Interpretation: nsr hr [address] or t wave abnormalities qrs 109 qtgc 408 Discharge Plan Discharge Patient Disposition: Home Clinical Impression: Chest pain Condition: Stable Prescriptions: New Naprosyn 500 mg tablet 500 mg PO BID PRN (Reason: pain) Qty: 20 0RF No Action montelukast 10 mg tablet 10 mg PO DAILY meloxicam 15 mg tablet 15 mg PO DAILY cyclobenzaprine 10 mg tablet 10 mg PO BID PRN (Reason: muscle spasm) Combivent Respimat 20-100 mcg/actuation mist 1 puff inhalation QID PRN (Reason: shortness of breath) gabapentin 400 mg capsule 400 mg PO TID Qty: 90 2RF All Day Allergy (cetirizine) 10 mg capsule 10 mg PO DAILY PRN (Reason: Allergy Symptoms) fluticasone propionate [Flonase Allergy Relief] 50 mcg/actuation spray, suspension 1 spray intranasal DAILY Rx Instructions: administer into each nostril naltrexone 50 mg tablet 50 mg PO DAILY Qty: 30 2RF fluoxetine 20 mg capsule 20 mg PO DAILY Qty: 30 2RF trazodone 100 mg tablet 200 mg PO .HS PRN (Reason: insomnia) Qty: 60 2RF propranolol 10 mg tablet 10 mg PO BID PRN (Reason: anxiety) Qty: 60 2RF clonidine HCl 0.1 mg tablet 0.1 mg PO DAILY Qty: 30 2RF metronidazole 500 mg tablet 500 mg PO BID Qty: 14 0RF Spiriva with HandiHaler 18 mcg capsule, w/inhalation device 1 cap inhalation DAILY Qty: 60 3RF Rx Instructions: puncture 1 cap using device; one dose = 2 inhalations Dulera 200-5 mcg/actuation HFA aerosol inhaler 2 puff inhalation BID Qty: 13 5RF multivitamin Tablet 1 tab PO DAILY hydroxyzine HCl 50 mg tablet 50 mg PO QID PRN (Reason: anxiety first) trazodone 100 mg tablet 200 mg PO BEDTIME PRN (Reason: insomnia) Hold Instructions: Resume on 05/19/22. midodrine 5 mg tablet 2.5 mg PO BID Qty: 4 0RF Rx Instructions: do not give last dose of day after 6PM or within 4 hrs of bedtime Discharge Orders: Discharge ED (Routine); Ordered 03/20/23 Ordered By: Korby Marycarmen Referrals: Skyler Lobo FNP [Primary Care Provider] - 1-3 days Discharge Diet: Advance as tolerated Discharge Activity: Resume usual activity Patient Instructions: Chest Wall Pain (ED) Coding Level of Care Code ED Workday Financials Consultant for Shelbie Merrill
[2023-03-19 23:50] VITALS: RESP 16; O2SAT 100
[2023-03-19] MEDS: ondansetron 2 mg/ML SDV 2 mL 4 MG IVP (23:50)
[2023-03-19] MEDS: morphine 4 mg/mL SDV 1 mL IVP (23:50)
[2023-03-20 00:01] LABS: Basophils % 0.7 %; Eosinophils # 0.1 10^3/uL (0.0-0.8); Eosinophils % 2.5 %; Hemoglobin 12.6 g/dL (11.5-15.3); Lymphocytes # 2.1 10^3/uL (0.8-4.8); Lymphocytes % 38.4 %; Mean Corpuscular HGB Conc 33.2 g/dL (30.0-36.0); Mean Corpuscular Hemoglobin 30.4 pg (28.0-34.0); Mean Corpuscular Volume 91.6 fl (81-99); Mean Platelet Volume 11.6 fL (7.4-10.4); Monocytes # 0.5 10^3/uL (0.2-0.9); Monocytes % 9.6 %; Neutrophils # 2.67 10^3/uL (1.8-7.7); Neutrophils % 48.4 %; Nucleated Red Blood Cells % 0 %; Platelet Count 166 10^3/cmm (130-400); Red Blood Count 4.15 10^6/uL (4.1-5.3); Red Cell Distribution Width 13.3 % (12.1-15.1); White Blood Count 5.5 10^3/uL (4.0-10.0)
[2023-03-20 00:08] LABS: INR 0.88 (0.8-1.2)
[2023-03-20 00:12] LABS: Alanine Aminotransferase 7 U/L (0-33); Albumin Level 4.1 g/dL (3.5-5.2); Alkaline Phosphatase 61 U/L (35-105); Anion Gap 13.2 (5-19); Aspartate Amino Transferase 13 U/L (0-32); Blood Urea Nitrogen 16 mg/dL (6-20); Calcium 8.8 mg/dL (8.5-10.5); Carbon Dioxide 23 mmol/L (22-29); Chloride 105 mmol/L (98-107); Creatinine Clr Calc Pharmacy 85.6334; Globulin 1.8 g/dL (1.3-4.6); Glomerular Filtration Rate 111.3 mL/min (90-130); Glucose 103 mg/dL (65-115); Lipase 25 U/L (13-60); Osmolality Calculated 285 mOsm/kg (285-295); Potassium 4.2 mmol/L (3.5-5.1); Sodium 137 mmol/L (136-145); Total Bilirubin 0.2 mg/dL (0.15-1.2); Total Protein 5.9 g/dL (6.6-8.7)
[2023-03-20 00:24] LABS: Troponin(5th) Baseline 6 ng/L (0-10)
[2023-03-20] MEDS: ketorolac 30 mg/mL INJ IVP (01:04)
[2023-03-20 01:05] VITALS: BP 105/83; PULSE 72; RESP 13; O2SAT 100
--- NOTE | 2023-03-20 01:30 | ECG_ITS ---
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 Measurements Intervals [place] Rate: 63 P: 63 AL: 157 QRS: 62 QRSD: 94 T: 57 QT: 417 QTc: 427 Interpretive Statements SINUS RHYTHM INCOMPLETE RIGHT BUNDLE BRANCH BLOCK [90+ ms QRS DURATION, TERMINAL R IN V1/V2, 40+ ms S IN I/aVL/V4/V5/V6] No previous ECG available for comparison Electronically Signed On 03-20-2023 13:41:10 CDT by Mony Evangelista M.D. [id number]
[2023-03-20 02:13] LABS: Troponin 5 2HR Delta 0 ABS# (0-10)
[2023-03-20 02:14] VITALS: BP 97/72; PULSE 76; RESP 24; O2SAT 100
== END 2023-03-20 02:16 | disposition home or self-care (01) ==
PROVIDERS: Emergency Provider Emergency Medicine; PCP Nurse Practitioner
DX: R07.9 Chest pain, unspecified (principal); F17.210 Nicotine dependence, cigarettes, uncomplicated
CPT/HCPCS: 36415; 71045; 80053; 83690; 84484; 85025; 85610; 93005; 96374; 96375; 99285; J1885; J2270; J2405

== ENCOUNTER 2023-04-07 11:10 | Outpatient (CLI) | payer MEDICAID, SELFPAY ==
--- NOTE | 2023-04-07 | ECG_ITS ---
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 Interpretive Statements NAME OF STUDY: TREADMILL STRESS TEST INDICATION: Sob on exertion Baseline blood pressure of 110/81 mm Hg, heart rate 87 beats per minute and oxygen saturation 98%. EKG showed sinus tachycardia, incomplete right bundle branch block, normal axis. The patient exercised for 4 minutes and 30 seconds on a standard Stewart protocol. Patient attained a maximum heart rate of 156 beats per minute(86% of the maximum predicted heart rate) with a blood pressure at the peak exercise of 131/73 mm Hg oxygen saturation of 97%. The EKG at the peak exercise revealed sinus tachycardia with no significant ST-T wave changes. Patient did not have any significant arrhythmis with the exercise. Patient complained of chest pain and tightness 5/10 during stage II of exercise and persisted late in recovery. During the recovery phase, there were no new changes. Blood pressure at the end of the recovery phase was 119/81 mm Hg with a heart rate of 89 beats per minute and oxygen saturation of 99%. CONCLUSION: 1. Normal EKG response to treadmill exercise. 2. Patient had exercise-induced chest pain 5/10 during stage II of exercise and persisted late in recovery. 3. Decreased exercise tolerance, attained a maximum of 7 METs. 4. Baseline normal blood pressure with normal response to exercise. Electronically Signed On 04-15-2023 17:01:36 CDT by Mony Evangelista M.D. [id number]
[2023-04-07 12:04] VITALS: BMI 20.7
[2023-04-07 12:36] VITALS: BP 114/77; PULSE 90
== END 2023-04-07 11:11 | disposition home or self-care (01) ==
PROVIDERS: PCP Nurse Practitioner; Visit Provider Internal Medicine Pulmonary Disease
DX: R06.02 Shortness of breath (principal)
CPT/HCPCS: 93017

== ENCOUNTER 2023-05-26 07:19 | Outpatient (CLI) | payer MEDICAID, SELFPAY ==
[2023-05-26] VITALS (19 sets, daily range): BP systolic 88–109; BP diastolic 53–86; PULSE 82–102; RESP 12–22; TEMP 36.6; O2SAT 96–100; BMI 20.5
--- NOTE | 2023-05-26 07:30 | XACV_ITS ---
Exam Room: 2 Ht: 145 cm Wt: 43 kg BSA: 1.32 m2 Gender: Female : 1985 Any Known Allergies: No known allergies Exam Priority: Routine Procedure(s): Procedure Description: Diagnostic procedure Procedure Description: Left Heart Catheterization Procedure Description: Coronary Angiography Diagnostic Cath Status: Elective Diagnostic Findings * 38 yo woman with atypical chest pains and echo with regional wall motion abnormality. Her stress test did not reveal any ischemic EKG changes however she continued to have chest pain during and after study. Given recurrent visits and ongoing symptoms, decision was made to proceed with coronary angiogram. * No disease noted in the Left Main, Left Anterior Descending, Right, or Circumflex coronary arteries. * Coronary angiography shows right dominance. Conclusions 1. No disease noted in the Left Main, Left Anterior Descending, Right, or Circumflex coronary arteries. Recommendations * Continue current medical management and risk factor modification. LV EDP: 12 mmHg Pressures Phase:Rest AO : 108 / 69 ( 87 ) @ 10:35:00 AM 105 / 67 ( 85 ) @ 10:35:00 AM 89 / 79 ( 84 ) @ 10:36:00 AM 83 / 77 ( 80 ) @ 10:39:00 AM LV : 114 / -8 / 13 @ 10:35:00 AM 117 / -9 / 14 @ 10:35:00 AM Valves Phase:DefaultPhase AV : 8.0 @ 9:55:43 AM 8.0 @ 9:55:43 AM AV Mean Gradient: 13.0 @ 9:55:43 AM 13.0 @ 9:55:43 AM Clinical Evaluation EBL: 5mL-10mL Procedural Details Procedure Consent Obtained. Admit Source: Out Patient. Pre-Procedure Time Out. Identified patient by full name and date of as verbalized by the patient/guarantor. Does the consent match the physician's order: Yes. Accurate & Complete Informed Consent: Yes. Inpatient/Outpatient History & Physical on Chart: Yes. If H&P is completed, is and addenduem needed: No; If yes, is the addendum complete: N/A. Visualize and Verify Site with Patient/Guarantor: N/A. Relevant Radiology Images available: Yes. Pre-op teaching completed and patient verbalized understanding. The risks, benefits, and alternatives of sedation and/or procedure were discussed by physician. The patient agrees to continue. Procedure started. Physician arrived. [facility] Clinical Fraility Score: 3: Managing Well. Director Of Corporate Communications Indications: Worsening Angina. Chest Pain Symptom Assessment: Atypical Angina. Correct patient, site and procedure confirmed by cath team. Current diagnosis: Chest Pain. PERRLA. Strong, equal hand security system administrator bilaterally. Lungs clear x 5 lobes. IV Site on Arrival: 20 gauge in the right anticubital. IV Fluids: 0.9% NaCl at KVO. 0 mL infused prior to filling station laborer. Pre Procedural Pulses: bilateral dorsalis pedis was 3+. Pre Procedural Pulses: bilateral posterior tibial was 2+. Pre Procedural Pulses: bilateral radial was 1+. Oxygen started at 2liters/min via nasal canula. right groin was prepped with chloroprep then draped in the usual sterile fashion. right radial was prepped with chloroprep then draped in the usual sterile fashion. Current Diagnosis : Chest Pain. Baseline sample Acquired. HR: 92 BPM. Physician scrubbed in. Immediate Pre-Procedure Time Out. Correct Patient: Yes; Correct Procedure: Yes; Correct Site: Yes; Correct Patient Position: Yes; Correct Supplies: Yes; Dried Flammable Prep: Yes; Blood Products Available: N/A;. Lidocaine 1% infiltrated to the right radial. Arterial access obtained. A 5 cape verdean TIG catheter in over wire. EDP Sample taken: LV 114/-9,13; HR: 90 BPM; SpO2: 98%. Pullback taken: LV 117/-10,14; AO 108/69(87); Mean: 13mmHg, Peak to Peak: 8mmHg, SEP: 11sec/min; HR: 90 BPM; SpO2: 99%. Multiple views taken of left coronary artery. Catheter redirected to the RCA. Multiple views taken of right coronary artery. Catheter removed over the exchange wire. A TR Band was successful obtaining hemostatsis at the Right Radial artery insertion site. Vital chart was stopped. Post Procedure: Pulses reassessed and unchanged. PERRLA. Strong, equal hand security system administrator bilaterally. No VTE prophylaxis required. Medication's Wasted: Nitro = 49.6 mg. Medication's Wasted: Heparin = 3000 units. Medication's Wasted: Other = Fentanyl 25mcg Versed 1 mg. Total IV fluids: 30 mL. Post-op diagnosis: Normal Coronaries. Complications: None. Estimated blood loss: 5mL-10mL. Responsiveness - Normal response to verbal stimuli; alert and oriented, PERRLA. Airway - Unaffected, no intervention required; spontaneous ventilation. Circulation: W/N/L, pulses unchanged. Nausea/Vomiting: No. Procedure completed. Patient transferred by wheelchair to CPRU. Access Site Site: Right Radial artery Sheath Size: 6 Fr Hemostasis Method: TR Band Hemostasis Success: Successful Procedure Medications Start: 9:24 AM Stop: 9:24 AM Medication: Versed 1 mg and Fentanyl 25 mcg Amount: 1 Route: I.V. Start: 9:29 AM Stop: 9:29 AM Medication: Fentanyl Amount: 25 mcg Route: I.V. Start: 9:30 AM Stop: 9:30 AM Medication: Versed Amount: 1 mg Route: I.V. Start: 9:31 AM Stop: 9:31 AM Medication: Nitrogylcerin Amount: 200 mcg Route: I.A. Start: 9:34 AM Stop: 9:34 AM Medication: Heparin Amount: 3000 units Route: I.V. Start: 9:41 AM Stop: 9:41 AM Medication: Nitrogylcerin Amount: 200 mcg Route: I.A. Start: 9:41 AM Stop: 9:41 AM Medication: Fentanyl Amount: 25 mcg Route: I.V. I, the attending physician, have reviewed and verified all procedure medications. Yes, all medications given per verbal order History/Risk Factors Hypertension: No Dyslipidemia: No Peripheral Arterial Disease (PAD): No Myocardial Infarction (TN): No Obesity: No Renal Disease: No Tobacco Use: Current/Recent(w/in 1 year) Prior Interventions PCI: No CABG: No Valve Surgery: No Report Signatures Finalized by Mony Evangelista MD on 05/27/2023 05:00 PM
[2023-05-26] MEDS: diphenhydrAMINE 50 mg Capsule PO (07:55)
[2023-05-26] MEDS: aspirin 325 mg Tablet PO (07:55)
[2023-05-26 08:01] LABS: Basophils # 0.1 10^3/uL (0.0-0.1); Basophils % 0.9 %; Eosinophils # 0.1 10^3/uL (0.0-0.8); Eosinophils % 1.5 %; Hematocrit 41.5 % (36-47); Lymphocytes # 1.9 10^3/uL (0.8-4.8); Lymphocytes % 28.7 %; Mean Corpuscular HGB Conc 34.2 g/dL (30-55); Mean Corpuscular Hemoglobin 31.3 pg (27-33); Mean Corpuscular Volume 91.6 fl (85-98); Mean Platelet Volume 11.1 fL (7.4-10.4); Monocytes # 0.5 10^3/uL (0.2-0.9); Monocytes % 7.9 %; Neutrophils # 4.09 10^3/uL (1.8-7.7); Neutrophils % 60.7 %; Nucleated Red Blood Cells % 0 %; Platelet Count 273 10^3/cmm (157-399); Red Blood Count 4.53 10^6/uL (3.85-5.65); Red Cell Distribution Width 13.3 % (12.1-15.1); White Blood Count 6.73 10^3/uL (3.29-11.43)
[2023-05-26 08:38] LABS: Anion Gap 13.6 (5-19); Blood Urea Nitrogen 18 mg/dL (6-20); Calcium 9.6 mg/dL (8.5-10.5); Carbon Dioxide 29 mmol/L (22-29); Chloride 105 mmol/L (98-107); Creatinine Clr Calc Pharmacy 85.6334; Glomerular Filtration Rate 111.3 mL/min (90-130); Glucose 87 mg/dL (65-115); Osmolality Calculated 297 mOsm/kg (285-295); Potassium 4.6 mmol/L (3.5-5.1); Sodium 143 mmol/L (136-145)
--- NOTE | 2023-05-26 09:20 | P.HPUD_ITS ---
Surgery/Procedure H&P Update DATE OF PROCEDURE: May 26, 2023 DATE H&P PERFORMED: 04/27/23 H&P UPDATE INFORMATION: I have reviewed H&P completed within last 30 days, I have examined patient prior to procedure and No changes to prior documentation PREOP DIAGNOSIS: Worsening chest pain inspite of normal stress test PRIMARY INDICATION FOR PROCEDURE: Worsening chest pain inspite of normal stress test PLANNED PROCEDURE: Operation Date: 05/26/23 08:30 Proposed Procedures p [facility] w/-w/o [address]39 R07.9(Left) - Mony Evangelista MD
--- NOTE | 2023-05-26 09:55 | PC.NURSE ---
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 Pt alert and oriented X 4. Breathing even and non-labored on room air. TR band site to right wrist, site asymptomatic. No signs of bleeding or hematoma. Radial pulse palpable. Pt given activity restrictions to right arm and reportable signs and symptoms. Pt verbalized understanding. Pt placed on bedside pvc monitor. Complains of right upper extremity pain 11/24. Dr. Evangelista notified and rounded at bedside. Physician Educated pain is likely from vasospasm in procedure .
[2023-05-26] MEDS: acetaminophen 325 mg Tablet 650 MG PO (11:54)
--- NOTE | 2023-05-26 13:00 | PC.NURSE ---
TR Band removal 2ml of air removed every 10-15 minutes until band deflated. TR band deflated at 1300. Site is asymptomatic, no signs of bleeding or hematoma. Small bruising noted. Clean dressing applied to site.
--- NOTE | 2023-05-26 14:11 | PC.NURSE ---
Discharge Note Discharge instructions given to patient verbally and via printed instructions. Access to right wrist remains asymptomatic. Dressing is clean and dry. No signs of bleeding or hematoma noted. Pt denies pain at this time. IV removed, catheter intact. Pt escorted to private vehicle with .
== END 2023-05-26 14:14 | disposition home or self-care (01) ==
PROVIDERS: PCP Nurse Practitioner; Visit Provider Internal Medicine Cardiovascular Disease
DX: R07.89 Other chest pain (principal); M79.7 Fibromyalgia; E28.2 Polycystic ovarian syndrome; M06.9 Rheumatoid arthritis, unspecified; F17.210 Nicotine dependence, cigarettes, uncomplicated
CPT/HCPCS: 36415; 80048; 85025; 93458; 96361; 96365; 99152; 99153; C1769; C1887; C1894; J1644; J2250; J3010; J3490; J7030; Q0163; Q9967

== ENCOUNTER → 2023-06-02 11:40 | Outpatient (BNVA) | payer MEDICAID, SELFPAY | PROVIDERS: PCP Nurse Practitioner; Visit Provider Nurse Practitioner Family | DX: R09.89 Other specified symptoms and signs involving the circulatory and respiratory systems (principal); M79.601 Pain in right arm; R06.02 Shortness of breath; Z09 Encounter for follow-up examination after completed treatment for conditions other than malignant neoplasm | CPT/HCPCS: 36415 ==

== ENCOUNTER 2023-06-03 15:09 | Outpatient (CLI) | payer MEDICAID, SELFPAY ==
--- NOTE | 2023-06-03 15:15 | USR_ITS ---
PROCEDURE INFORMATION: Exam: US Duplex Right Upper Extremity Arteries Exam date and time: 06/03/2023 3:26 PM Age: 38 years old Clinical indication: Pain; Arm, upper; Right; Prior surgery; Surgery date: 3-7 days post-operative; Surgery type: Catheter inserted through radial artery; Additional info: Absent radial pulse, post cath TECHNIQUE: Imaging protocol: Right Real-time ultrasound scan of the arteries of the right upper extremity with 2-D benz scale, color Doppler flow and spectral waveform analysis. COMPARISON: MR hand RT wo con* [id number] 04/15/2022 9:52 AM FINDINGS: Right subclavian artery: No occlusion or significant stenosis. Normal waveform. Right axillary artery: No occlusion or significant stenosis. Normal waveform. Right brachial artery: No occlusion or significant stenosis. Normal waveform. Right radial artery: Decreased flow with monophasic arterial waveform noted within the proximal to mid radial artery. No flow is seen in the distal radial artery suggesting occlusion. Right ulnar artery: No occlusion or significant stenosis. Normal waveform. US/[place] [id number] IMPRESSION: Lack of flow distal right radial artery suggesting occlusion.
== END 2023-06-03 15:10 | disposition home or self-care (01) ==
PROVIDERS: PCP Nurse Practitioner; Visit Provider Nurse Practitioner Family
DX: M79.601 Pain in right arm (principal); R09.89 Other specified symptoms and signs involving the circulatory and respiratory systems; I99.9 Unspecified disorder of circulatory system; Z98.890 Other specified postprocedural states
CPT/HCPCS: 93931

== ENCOUNTER 2023-06-16 10:07 | Outpatient (CLI) | payer MEDICAID, SELFPAY ==
--- NOTE | 2023-06-16 10:30 | USCV_ITS ---
Jesse Stephanie Age: 38 Gender: F : 1985 Exam Date: 06/16/2023 10:23 Ordering Phys: Mony Evangelista MD ([email or web address]) Technologist: CT Exam Location: [facility] [place] Indication: PROCEDURES: Venous duplex imaging was performed in only the right upper extremity. FINDINGS: no dvt, radial art same from previous exam CONCLUSIONS No evidence of thrombus of the right upper extremity veins. Occluded Radial artery unchanged Jack Jesus MD (Electronically Signed) Final Date: 16 June 2023 14:28 S
== END 2023-06-16 10:08 | disposition home or self-care (01) ==
PROVIDERS: PCP Nurse Practitioner; Visit Provider Internal Medicine Cardiovascular Disease
DX: M79.601 Pain in right arm (principal); I70.208 Unspecified atherosclerosis of native arteries of extremities, other extremity
CPT/HCPCS: 93971

== ENCOUNTER 2024-01-08 17:02 | Emergency (ER) | payer MEDICAID, SELFPAY ==
[2024-01-08 17:03] VITALS: BP 127/85; PULSE 98; RESP 14; TEMP 36.9; O2SAT 100
--- NOTE | 2024-01-08 17:33 | XRR_ITS ---
PROCEDURE INFORMATION: Exam: XR Chest Exam date and time: 01/08/2024 5:40 PM Age: 38 years old Clinical indication: Shortness of breath; Additional info: Cp TECHNIQUE: Imaging protocol: Radiologic exam of the chest. Views: 1 view. COMPARISON: CR XR chest 1V portable [id number] 03/19/2023 11:47 PM FINDINGS: Lungs: Stable calcified granulomas in both lungs. Lungs are clear bilaterally. Pleural spaces: No pleural effusion. No pneumothorax. Heart/Mediastinum: The cardiac silhouette and mediastinal contours are unremarkable. Bones/joints: Unremarkable for age. XR/XR chest 1V portable [id number] IMPRESSION: 1. No acute cardiopulmonary process. 2. Incidental/nonacute findings are listed in the report.
--- NOTE | 2024-01-08 18:03 | W.ED.CHESTPA ---
Documented by User: JANNETTE Menjivar 01/08/24 20:25 HPI - Chest Pain General: Chief Complaint: Chest Pain Stated Complaint: chest pains, right hand numbness Time Seen by Provider: 01/08/24 17:26 Source: patient Mode of arrival: ambulatory Limitations: no limitations History of Present Illness: Patient is a 38-year-old female presenting to the emergency department complaining of left-sided chest pain onset earlier this morning at 0500. She is also complaining of some distal right hand numbness. She notes that back in 2021 she was hospitalized for septic shock from a kidney infection, and had subsequent cardiac cath done that resulted in a blood clot in her right upper extremity. She notes that she is having numbness that was similar to then. Incidentally she is noting left chest pain that does not radiate and currently is moderate in intensity. She does state it is sharp, and has been present all day. She has had this pain before, but notes that she has never had it worked up. She is currently on midodrine due to chronic hypotension. She states she takes her blood pressure every morning and if it is below 90 she takes her midodrine as prescribed. Otherwise she has no recent changes in medication to report. She does note some chronic shortness of breath as she has COPD, worse with exertion. No palpitations, syncope, or other symptoms to report at this time. MD complaint: chest pain Onset (ago): hour(s) Timing of current episode: constant Prior episodes: Yes Onset: during rest Pain location: left chest Pain radiation: none Severity: moderate Quality: sharp Relieving factors: nothing Exacerbating factors: nothing Associated symptoms: Reports dyspnea; Deny abdominal pain, fever(s), nausea, palpitations or vomiting Review of Systems General: Reports: 10 or more systems reviewed and unremarkable except in HPI and below Const: Denies: fever(s), chills or fatigue Eyes: Denies: change in vision ENMT: Denies: throat pain, ear or mastoid pain or nasal discharge Card: Reports: chest pain; Denies: palpitations, swelling of feet/ankles or lightheadedness Resp: Reports: dyspnea; Denies: productive cough or wheezing GI: Denies: abdominal pain, nausea, vomiting, diarrhea or constipation : Denies: flank pain, difficulty voiding, dysuria or urinary frequency Musc: Reports: extremity pain (RUE); Denies: neck pain, back pain or joint pain Skin/Breast: Denies: rash Neuro: Reports: numbness in extremities (RUE); Denies: headache(s) or weakness in extremities PFSH ED PFSH: Medical History Anemia 3 para 3 Depression Hypotension Pyelonephritis PCOS (polycystic ovarian syndrome) History of ovarian cyst Fibromyalgia Rheumatoid arthritis Allergies Asthma Nicotine dependence, unspecified, uncomplicated Moderate episode of recurrent major depressive disorder Generalized anxiety disorder Surgical History History of hysteroscopy (10/22/21) hysteroscopy, dilation and curettage with myosure. Dr Riggs History of hysterectomy (11/19/21) Laparoscopic assisted vaginal hysterectomy with bilateral salpingectomy and take down of omental adhesions. Dr Riggs History of colonoscopy History of loop electrical excision procedure (LEEP) History of hernia repair History of rotator cuff surgery right arm Family History Mother CAD (coronary artery disease) Father Cancer agent orange Denies family history of Diabetes Clotting disorder Hyperlipidemia Chronic kidney disease (CKD) Bleeding disorder Hypertension Thyroid disease Stroke Social History Smoking and tobacco/nicotine status: current every day tobacco/nicotine user cigarettes Packs smoked per day: 1 Years cigarettes smoked: 20 [ Other cigarette details: started at age 17] Physical Exam Const: COMMON NORMALS: no acute distress, patient oriented x3 and no limitations GENERAL APPEARANCE: cooperative, comfortable and well developed ORIENTATION/CONSCIOUSNESS: Yes awake, Yes oriented to person, Yes oriented to place and Yes oriented to time HENMT: COMMON NORMALS: normocephalic, atraumatic and hearing grossly normal bilaterally HEAD & SCALP: normocephalic and atraumatic Eye: COMMON NORMALS: Equal, round and reactive pupils present, EOMs intact bilaterally and conjunctivae normal CONJUNCTIVA: Yes conjunctivae normal PUPIL: Yes Equal, round and reactive pupils present Neck/C-Spine: COMMON NORMALS: full ROM, supple and no JVD Resp: COMMON NORMALS: normal respiratory effort, No retractions, No use of accessory muscles and clear to auscultation bilaterally AUSCULTATION: clear to auscultation bilaterally Cardio: COMMON NORMALS: no JVD, regular rate, regular rhythm, No clicks present (Cardio), No murmurs present (Cardio) and No rub (Cardio) RATE: regular rate RHYTHM: regular rhythm GI: COMMON NORMALS: Normal to inspection, nondistended, normoactive bowel sounds present, Soft to palpation and non-tender AUSCULTATION: Yes normoactive bowel sounds PALPATION: Yes Soft to palpation RECTAL EXAM: deferred : COMMON NORMALS: Yes no CVA tenderness BLADDER/KIDNEY EXAM: Yes no CVA tenderness Back/Pelvis: COMMON NORMALS: no CVA tenderness, thoracic and lumbar spine normal to inspection, no thoracic nor lumbar tenderness and thoraco-lumbar ROM normal Extremity: COMMON NORMALS: full ROM and capillary refill normal NARRATIVE EXTREMITY EXAM: Scattered areas of ecchymosis throughout. Somewhat diminished radial pulse on the right side. Diminished sensation to light touch about the right fourth and fifth digits. No palpable areas of tenderness to her right upper extremity, no signs of trauma. Neuro: COMMON NORMALS: patient oriented x3, moves all extremities, no focal motor deficits and no sensory deficits noted SENSORIUM/ORIENTATION: Yes oriented to person, Yes oriented to place and Yes oriented to time Psych: COMMON NORMALS: mental status grossly normal and Normal thought process present THOUGHT PROCESS: Normal thought process present Skin: COMMON NORMALS: no rashes or lesions noted GENERAL SKIN EXAM: no rashes or lesions noted Course Vital Signs: Vital signs: Vital Signs Temperature 98.4 F 01/08/24 17:03 Pulse Rate 97 01/08/24 20:30 Respiratory Rate 16 01/08/24 20:30 Blood Pressure 120/79 01/08/24 20:30 Pulse Oximetry 99 01/08/24 20:30 Oxygen Delivery Me thod Room Air 01/08/24 17:03 MDM - Chest Pain Medical Decision Making Patient was seen due to acute onset of left-sided chest pain associated with the right arm numbness. Her EKG did not demonstrate any acute ST segment changes, and was unchanged from previous. Her initial troponin negative. Chest x-ray demonstrated no acute cardiopulmonary process. Due to an elevation in her D-dimer and reported paresthesias of the right upper extremity, as well as history of clot to that same arm, obtained an arterial ultrasound that was negative for any acute thrombus. Additionally, patient has been 100% on room air with no signs of tachycardia throughout her ED stay, as I feel CTA of the chest unnecessary at this time for assessing pulmonary embolus. However, I did have a thorough conversation with the patient in regards to signs to watch for that would warrant a return to the emergency department for evaluation of the PE, including palpitations, feeling of passing out, or increase in breathing difficulty. The rest of her lab work unremarkable, as her chest pain does not appear to be an emergent cardiac process. However I will refer her for outpatient cardiology follow-up due to history of septic shock and for further cardiac workup. Suspicion for ACS at this time is very low, and will discharge home with strict return precautions. Lab Data 01/08/24 18:05 01/08/24 18:05 Radiology Impressions Chest X-Ray 01/08/24 17:33 IMPRESSION: 1. No acute cardiopulmonary process. 2. Incidental/nonacute findings are listed in the report. Duplex Scan Upper Extremity Artery 01/08/24 18:37 IMPRESSION: Patent right upper extremity arterial system. No evidence of atherosclerosis. No visible stenosis. Normal exam. Laboratory Results WBC 7.30 10^3/uL (3.29-11.43) 01/08/24 18:05 RBC 4.63 10^6/uL (3.85-5.65) 01/08/24 18:05 Hgb 14.60 g/dL (11.27-16.99) 01/08/24 18:05 Hct 43.1 % (36-47) 01/08/24 18:05 MCV 93.1 fl (85-98) 01/08/24 18:05 MCH 31.5 pg (27-33) 01/08/24 18:05 MCHC 33.9 g/dL (30-55) 01/08/24 18:05 RDW 12.8 % (12.1-15.1) 01/08/24 18:05 Plt Count 192 10^3/cmm (157-399) 01/08/24 18:05 MPV 10.9 fL (7.4-10.4) H 01/08/24 18:05 Neut % (Auto) 69.6 % 01/08/24 18:05 Lymph % (Auto) 21.9 % 01/08/24 18:05 [place] % (Auto) 7.5 % 01/08/24 18:05 Eos % (Auto) 0.3 % 01/08/24 18:05 Baso % (Auto) 0.4 % 01/08/24 18:05 Neut # (Auto) 5.08 10^3/uL (1.8-7.7) 01/08/24 18:05 Lymph # (Auto) 1.6 10^3/uL (0.8-4.8) 01/08/24 18:05 [place] # (Auto) 0.6 10^3/uL (0.2-0.9) 01/08/24 18:05 Eos # (Auto) 0.0 10^3/uL (0.0-0.8) 01/08/24 18:05 Baso # (Auto) 0.0 10^3/uL (0.0-0.1) 01/08/24 18:05 Nucleated RBC % (auto) 0 % 01/08/24 18:05 Nucleated RBCs # 0.0 /100WBC 01/08/24 18:05 PT 13.10 SECONDS (12.1-14.9) 01/08/24 18:05 INR 0.96 (0.8-1.2) 01/08/24 18:05 APTT 22.3 SECONDS (23.9-36.7) L 01/08/24 18:05 D-Dimer 0.70 ug/mLFEU (0-0.59) H 01/08/24 18:05 Sodium 141 mmol/L (136-145) 01/08/24 18:05 Potassium 3.7 mmol/L (3.5-5.1) 01/08/24 18:05 Chloride 103 mmol/L (98-107) 01/08/24 18:05 Carbon Dioxide 25 mmol/L (22-29) 01/08/24 18:05 Anion Gap 16.7 (5-19) 01/08/24 18:05 BUN 14 mg/dL (6-20) 01/08/24 18:05 Creatinine 0.6 mg/dL (0.5-0.9) 01/08/24 18:05 GFR Calculation 111.3 mL/min (90-130) 01/08/24 18:05 Glucose 89 mg/dL (65-115) 01/08/24 18:05 Calculated Osmolality 292 mOsm/kg (285-295) 01/08/24 18:05 Calcium 8.8 mg/dL (8.5-10.5) 01/08/24 18:05 Total Bilirubin 0.4 mg/dL (0.15-1.2) 01/08/24 18:05 AST 25 U/L (0-32) 01/08/24 18:05 ALT 15 U/L (0-33) 01/08/24 18:05 Alkaline Phosphatase 63 U/L (35-105) 01/08/24 18:05 Troponin T Baseline < 6 ng/L (0-10) 01/08/24 18:05 Total Protein 7.3 g/dL (6.6-8.7) 01/08/24 18:05 Albumin 4.5 g/dL (3.5-5.2) 01/08/24 18:05 Globulin 2.8 g/dL (1.3-4.6) 01/08/24 18:05 Urine Color Yellow (Yellow) 01/08/24 19:22 Urine Appearance Clear (CLEAR) 01/08/24 19:22 Urine pH 6 (5-7) 01/08/24 19:22 Ur Specific [place] 1.020 (1.005-1.030) 01/08/24 19:22 Urine Protein 1+ (Negative) H 01/08/24 19:22 Urine Glucose (UA) Norm (Normal) 01/08/24 19:22 Urine Ketones 1+ (Negative) H 01/08/24 19:22 Urine Blood Neg (Negative) 01/08/24 19:22 Urine Nitrate Negative (Negative) 01/08/24 19:22 Urine Bilirubin 1+ (Negative) H 01/08/24 19:22 Urine Urobilinogen 1 mg/dL (Negative) H 01/08/24 19:22 Ur Leukocyte Esterase Trace (Negative) H 01/08/24 19:22 Urine RBC 0-4 /hpf (0-2) H 01/08/24 19:22 Urine WBC 0-4 /hpf (0-5) H 01/08/24 19:22 Ur Squamous Epith Cells 5-10 /hpf (0-5) H 01/08/24 19:22 Amorphous Sediment Not Reportable 01/08/24 19:22 Urine Bacteria Trace /hpf (NONE) 01/08/24 19:22 Hyaline Casts 0-4 /lpf H 01/08/24 19:22 Urine Mucus 2+ /hpf 01/08/24 19:22 All radiology interpretation(s) finalized by discharge Discharge Plan Discharge Patient Disposition: Home Clinical Impression: Chest pain Condition: Stable Prescriptions: No Action montelukast 10 mg tablet 10 mg PO DAILY meloxicam 15 mg tablet 15 mg PO DAILY cyclobenzaprine 10 mg tablet 10 mg PO BID PRN (Reason: muscle spasm) Combivent Respimat 20-100 mcg/actuation mist 1 puff inhalation QID PRN (Reason: shortness of breath) gabapentin 400 mg capsule 400 mg PO TID Qty: 90 2RF All Day Allergy (cetirizine) 10 mg capsule 10 mg PO DAILY PRN (Reason: Allergy Symptoms) naltrexone 50 mg tablet 50 mg PO DAILY Qty: 30 2RF fluoxetine 20 mg capsule 20 mg PO DAILY Qty: 30 2RF propranolol 10 mg tablet 10 mg PO BID PRN (Reason: anxiety) Qty: 60 2RF Eliquis 5 mg tablet 5 mg PO BID Qty: 60 1RF fluticasone propionate [Flovent HFA] 44 mcg/actuation HFA aerosol inhaler 1 puff inhalation BID Qty: 10.6 6RF Rx Instructions: administer with spacer Anoro Ellipta 62.5-25 mcg/actuation blister with device 1 inh inhalation DAILY Qty: 60 6RF Dulera 200-5 mcg/actuation HFA aerosol inhaler 2 puff inhalation BID Qty: 13 6RF hydroxyzine HCl 50 mg tablet 50 mg PO QID PRN (Reason: anxiety first) trazodone 100 mg tablet 200 mg PO BEDTIME PRN (Reason: insomnia) Hold Instructions: Resume on 05/19/22. midodrine 5 mg tablet 2.5 mg PO BID Qty: 4 0RF Rx Instructions: do not give last dose of day after 6PM or within 4 hrs of bedtime Discharge Orders: Discharge ED (Routine); Ordered 01/08/24 Ordered By: Chaz Jean-Baptiste Referrals: Skyler Lobo [employer]ONEWORK TRACER [Primary Care Provider] - Discharge Diet: Usual diet Discharge Activity: Increase activity as tolerated Patient Instructions: Chest Pain (ED) Activity Restrictions/Additional Instructions: Follow-up with cardiology as discussed. Also as we discussed, please monitor for any worsening of chest pain, radiation of pain, or increase in breathing difficulties and return to the emergency department immediately. Continue taking your medications as originally prescribed. Coding Level of Care Code ED Spot Machine Operator for Chg Fwd Documented by User: Den Navarro DO 01/17/24 15:43 HPI - Chest Pain General: Chief Complaint: Chest Pain Stated Complaint: chest pains, right hand numbness Time Seen by Provider: 01/08/24 17:26 [facility] ED PFSH: Medical History Anemia 3 para 3 Depression Hypotension Pyelonephritis PCOS (polycystic ovarian syndrome) History of ovarian cyst Fibromyalgia Rheumatoid arthritis Allergies Asthma Nicotine dependence, unspecified, uncomplicated Moderate episode of recurrent major depressive disorder Generalized anxiety disorder Surgical History History of hysteroscopy (10/22/21) hysteroscopy, dilation and curettage with myosure. Dr Riggs History of hysterectomy (11/19/21) Laparoscopic assisted vaginal hysterectomy with bilateral salpingectomy and take down of omental adhesions. Dr Riggs History of colonoscopy History of loop electrical excision procedure (LEEP) History of hernia repair History of rotator cuff surgery right arm Family History Mother CAD (coronary artery disease) Father Cancer agent orange Denies family history of Diabetes Clotting disorder Hyperlipidemia Chronic kidney disease (CKD) Bleeding disorder Hypertension Thyroid disease Stroke Social History Smoking and tobacco/nicotine status: current every day tobacco/nicotine user cigarettes Packs smoked per day: 1 Years cigarettes smoked: 20 [ Other cigarette details: started at age 17] Course Vital Signs: Vital signs: Vital Signs Temperature 98.4 F 01/08/24 17:03 Pulse Rate 97 01/08/24 20:30 Respiratory Rate 16 01/08/24 20:30 Blood Pressure 120/79 01/08/24 20:30 Pulse Oximetry 99 01/08/24 20:30 Oxygen Delivery Me thod Room Air 01/08/24 17:03 MDM - Chest Pain Medical Decision Making Patient was seen due to acute onset of left-sided chest pain associated with the right arm numbness. Her EKG did not demonstrate any acute ST segment changes, and was unchanged from previous. Her initial troponin negative. Chest x-ray demonstrated no acute cardiopulmonary process. Due to an elevation in her D-dimer and reported paresthesias of the right upper extremity, as well as history of clot to that same arm, obtained an arterial ultrasound that was negative for any acute thrombus. Additionally, patient has been 100% on room air with no signs of tachycardia throughout her ED stay, as I feel CTA of the chest unnecessary at this time for assessing pulmonary embolus. However, I did have a thorough conversation with the patient in regards to signs to watch for that would warrant a return to the emergency department for evaluation of the PE, including palpitations, feeling of passing out, or increase in breathing difficulty. The rest of her lab work unremarkable, as her chest pain does not appear to be an emergent cardiac process. However I will refer her for outpatient cardiology follow-up due to history of septic shock and for further cardiac workup. Suspicion for ACS at this time is very low, and will discharge home with strict return precautions. Chart reviewed Lab Data 01/08/24 18:05 01/08/24 18:05 Radiology Impressions Chest X-Ray 01/08/24 17:33 IMPRESSION: 1. No acute cardiopulmonary process. 2. Incidental/nonacute findings are listed in the report. Duplex Scan Upper Extremity Artery 01/08/24 18:37 IMPRESSION: Patent right upper extremity arterial system. No evidence of atherosclerosis. No visible stenosis. Normal exam. Laboratory Results WBC 7.30 10^3/uL (3.29-11.43) 01/08/24 18:05 RBC 4.63 10^6/uL (3.85-5.65) 01/08/24 18:05 Hgb 14.60 g/dL (11.27-16.99) 01/08/24 18:05 Hct 43.1 % (36-47) 01/08/24 18:05 MCV 93.1 fl (85-98) 01/08/24 18:05 MCH 31.5 pg (27-33) 01/08/24 18:05 MCHC 33.9 g/dL (30-55) 01/08/24 18:05 RDW 12.8 % (12.1-15.1) 01/08/24 18:05 Plt Count 192 10^3/cmm (157-399) 01/08/24 18:05 MPV 10.9 fL (7.4-10.4) H 01/08/24 18:05 Neut % (Auto) 69.6 % 01/08/24 18:05 Lymph % (Auto) 21.9 % 01/08/24 18:05 [place] % (Auto) 7.5 % 01/08/24 18:05 Eos % (Auto) 0.3 % 01/08/24 18:05 Baso % (Auto) 0.4 % 01/08/24 18:05 Neut # (Auto) 5.08 10^3/uL (1.8-7.7) 01/08/24 18:05 Lymph # (Auto) 1.6 10^3/uL (0.8-4.8) 01/08/24 18:05 [place] # (Auto) 0.6 10^3/uL (0.2-0.9) 01/08/24 18:05 Eos # (Auto) 0.0 10^3/uL (0.0-0.8) 01/08/24 18:05 Baso # (Auto) 0.0 10^3/uL (0.0-0.1) 01/08/24 18:05 Nucleated RBC % (auto) 0 % 01/08/24 18:05 Nucleated RBCs # 0.0 /100WBC 01/08/24 18:05 PT 13.10 SECONDS (12.1-14.9) 01/08/24 18:05 INR 0.96 (0.8-1.2) 01/08/24 18:05 APTT 22.3 SECONDS (23.9-36.7) L 01/08/24 18:05 D-Dimer 0.70 ug/mLFEU (0-0.59) H 01/08/24 18:05 Sodium 141 mmol/L (136-145) 01/08/24 18:05 Potassium 3.7 mmol/L (3.5-5.1) 01/08/24 18:05 Chloride 103 mmol/L (98-107) 01/08/24 18:05 Carbon Dioxide 25 mmol/L (22-29) 01/08/24 18:05 Anion Gap 16.7 (5-19) 01/08/24 18:05 BUN 14 mg/dL (6-20) 01/08/24 18:05 Creatinine 0.6 mg/dL (0.5-0.9) 01/08/24 18:05 GFR Calculation 111.3 mL/min (90-130) 01/08/24 18:05 Glucose 89 mg/dL (65-115) 01/08/24 18:05 Calculated Osmolality 292 mOsm/kg (285-295) 01/08/24 18:05 Calcium 8.8 mg/dL (8.5-10.5) 01/08/24 18:05 Total Bilirubin 0.4 mg/dL (0.15-1.2) 01/08/24 18:05 AST 25 U/L (0-32) 01/08/24 18:05 ALT 15 U/L (0-33) 01/08/24 18:05 Alkaline Phosphatase 63 U/L (35-105) 01/08/24 18:05 Troponin T Baseline < 6 ng/L (0-10) 01/08/24 18:05 Total Protein 7.3 g/dL (6.6-8.7) 01/08/24 18:05 Albumin 4.5 g/dL (3.5-5.2) 01/08/24 18:05 Globulin 2.8 g/dL (1.3-4.6) 01/08/24 18:05 Urine Color Yellow (Yellow) 01/08/24 19:22 Urine Appearance Clear (CLEAR) 01/08/24 19:22 Urine pH 6 (5-7) 01/08/24 19:22 Ur Specific [place] 1.020 (1.005-1.030) 01/08/24 19:22 Urine Protein 1+ (Negative) H 01/08/24 19:22 Urine Glucose (UA) Norm (Normal) 01/08/24 19:22 Urine Ketones 1+ (Negative) H 01/08/24 19:22 Urine Blood Neg (Negative) 01/08/24 19:22 Urine Nitrate Negative (Negative) 01/08/24 19:22 Urine Bilirubin 1+ (Negative) H 01/08/24 19:22 Urine Urobilinogen 1 mg/dL (Negative) H 01/08/24 19:22 Ur Leukocyte Esterase Trace (Negative) H 01/08/24 19:22 Urine RBC 0-4 /hpf (0-2) H 01/08/24 19:22 Urine WBC 0-4 /hpf (0-5) H 01/08/24 19:22 Ur Squamous Epith Cells 5-10 /hpf (0-5) H 01/08/24 19:22 Amorphous Sediment Not Reportable 01/08/24 19:22 Urine Bacteria Trace /hpf (NONE) 01/08/24 19:22 Hyaline Casts 0-4 /lpf H 01/08/24 19:22 Urine Mucus 2+ /hpf 01/08/24 19:22 Discharge Plan Discharge Patient Disposition: Home Clinical Impression: Chest pain Condition: Stable Prescriptions: No Action montelukast 10 mg tablet 10 mg PO DAILY meloxicam 15 mg tablet 15 mg PO DAILY cyclobenzaprine 10 mg tablet 10 mg PO BID PRN (Reason: muscle spasm) Combivent Respimat 20-100 mcg/actuation mist 1 puff inhalation QID PRN (Reason: shortness of breath) gabapentin 400 mg capsule 400 mg PO TID Qty: 90 2RF All Day Allergy (cetirizine) 10 mg capsule 10 mg PO DAILY PRN (Reason: Allergy Symptoms) naltrexone 50 mg tablet 50 mg PO DAILY Qty: 30 2RF fluoxetine 20 mg capsule 20 mg PO DAILY Qty: 30 2RF propranolol 10 mg tablet 10 mg PO BID PRN (Reason: anxiety) Qty: 60 2RF Eliquis 5 mg tablet 5 mg PO BID Qty: 60 1RF fluticasone propionate [Flovent HFA] 44 mcg/actuation HFA aerosol inhaler 1 puff inhalation BID Qty: 10.6 6RF Rx Instructions: administer with spacer Anoro Ellipta 62.5-25 mcg/actuation blister with device 1 inh inhalation DAILY Qty: 60 6RF Dulera 200-5 mcg/actuation HFA aerosol inhaler 2 puff inhalation BID Qty: 13 6RF hydroxyzine HCl 50 mg tablet 50 mg PO QID PRN (Reason: anxiety first) trazodone 100 mg tablet 200 mg PO BEDTIME PRN (Reason: insomnia) Hold Instructions: Resume on 05/19/22. midodrine 5 mg tablet 2.5 mg PO BID Qty: 4 0RF Rx Instructions: do not give last dose of day after 6PM or within 4 hrs of bedtime Discharge Orders: Discharge ED (Routine); Ordered 01/08/24 Ordered By: Chaz Jean-Baptiste Referrals: Skyler Lobo, STONEWORK TRACER [Primary Care Provider] - Discharge Diet: Usual diet Discharge Activity: Increase activity as tolerated Patient Instructions: Chest Pain (ED) Activity Restrictions/Additional Instructions: Follow-up with cardiology as discussed. Also as we discussed, please monitor for any worsening of chest pain, radiation of pain, or increase in breathing difficulties and return to the emergency department immediately. Continue taking your medications as originally prescribed. Coding Level of Care Code ED Spot Machine Operator for Shelbie Merrill
[2024-01-08 18:11] LABS: Basophils % 0.4 %; Eosinophils % 0.3 %; Hematocrit 43.1 % (36-47); Lymphocytes # 1.6 10^3/uL (0.8-4.8); Lymphocytes % 21.9 %; Mean Corpuscular HGB Conc 33.9 g/dL (30-55); Mean Corpuscular Hemoglobin 31.5 pg (27-33); Mean Corpuscular Volume 93.1 fl (85-98); Mean Platelet Volume 10.9 fL (7.4-10.4); Monocytes # 0.6 10^3/uL (0.2-0.9); Monocytes % 7.5 %; Neutrophils # 5.08 10^3/uL (1.8-7.7); Neutrophils % 69.6 %; Nucleated Red Blood Cells % 0 %; Platelet Count 192 10^3/cmm (157-399); Red Blood Count 4.63 10^6/uL (3.85-5.65); Red Cell Distribution Width 12.8 % (12.1-15.1)
[2024-01-08 18:20] VITALS: PULSE 85; RESP 18; O2SAT 100
[2024-01-08 18:24] LABS: INR 0.96 (0.8-1.2)
[2024-01-08 18:25] LABS: Partial Thromboplastin Time 22.3 SECONDS (23.9-36.7)
[2024-01-08 18:29] LABS: Troponin(5th) Baseline < 6 ng/L (0-10)
[2024-01-08 18:31] LABS: Alanine Aminotransferase 15 U/L (0-33); Albumin Level 4.5 g/dL (3.5-5.2); Alkaline Phosphatase 63 U/L (35-105); Anion Gap 16.7 (5-19); Aspartate Amino Transferase 25 U/L (0-32); Blood Urea Nitrogen 14 mg/dL (6-20); Calcium 8.8 mg/dL (8.5-10.5); Carbon Dioxide 25 mmol/L (22-29); Chloride 103 mmol/L (98-107); Creatinine Clr Calc Pharmacy 85.6334; Globulin 2.8 g/dL (1.3-4.6); Glomerular Filtration Rate 111.3 mL/min (90-130); Glucose 89 mg/dL (65-115); Osmolality Calculated 292 mOsm/kg (285-295); Potassium 3.7 mmol/L (3.5-5.1); Sodium 141 mmol/L (136-145); Total Bilirubin 0.4 mg/dL (0.15-1.2); Total Protein 7.3 g/dL (6.6-8.7)
--- NOTE | 2024-01-08 18:37 | USR_ITS ---
PROCEDURE INFORMATION: Exam: US Duplex Right Upper Extremity Arteries Exam date and time: 01/08/2024 7:27 PM Age: 38 years old Clinical indication: Other: Diminished pulses; Additional info: Diminished radial pulse, peripheral numbness TECHNIQUE: Imaging protocol: Right Real-time ultrasound scan of the arteries of the right upper extremity with 2-D benz scale, color Doppler flow and spectral waveform analysis. COMPARISON: [place] [id number] 06/03/2023 3:26 PM FINDINGS: Right subclavian artery: No occlusion or significant stenosis. Normal waveform. Right axillary artery: No occlusion or significant stenosis. Normal waveform. Right brachial artery: No occlusion or significant stenosis. Normal waveform. Right radial artery: No occlusion or significant stenosis. Normal waveform. Right ulnar artery: No occlusion or significant stenosis. Normal waveform. US/[place] [id number] IMPRESSION: Patent right upper extremity arterial system. No evidence of atherosclerosis. No visible stenosis. Normal exam.
[2024-01-08] MEDS: ketorolac 30 mg/mL INJ IVP (19:32)
--- NOTE | 2024-01-08 19:33 | ECG_ITS ---
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 Measurements Intervals [place] Rate: 97 P: 61 LA: 128 QRS: 37 QRSD: 103 T: -10 QT: 350 QTc: 445 Interpretive Statements SINUS RHYTHM INCOMPLETE RIGHT BUNDLE BRANCH BLOCK [90+ ms QRS DURATION, TERMINAL R IN V1/V2, 40+ ms S IN I/aVL/V4/V5/V6] NONSPECIFIC T-WAVE ABNORMALITY Compared to ECG 03/20/2023 01:30:27 T-wave abnormality now present Electronically Signed On 01-08-2024 20:26:02 CDT by Thom Boogie M.D. [email or web address]
[2024-01-08 20:06] LABS: Add Urine Microscopic? YES; Bilirubin Urine 1+ (Negative); Blood Urine Neg (Negative); Glucose Urine UA Norm (Normal); Ketones Urine 1+ (Negative); Leukocyte Esterase Urine Trace (Negative); Nitrate Urine Negative (Negative); Protein Urine 1+ (Negative); RBC Urine 0-4 /hpf (0-2); Urine Appearance Clear (CLEAR); Urine Color Yellow (Yellow); Urobilinogen Urine 1 mg/dL (Negative); WBC Urine 0-4 /hpf (0-5); pH Urine 6 (5-7)
[2024-01-08 20:07] LABS: Bacteria Urine TRACE /hpf; Hyaline Casts Urine 0-4 /lpf; Mucus Urine 2+ /hpf
[2024-01-08 20:30] VITALS: BP 120/79; PULSE 97; RESP 16; O2SAT 99
--- NOTE | 2024-01-09 07:56 | DCPLANNER ---
Sent Er Follow up request to [facility] 01/09/24 [id number]
== END 2024-01-08 20:31 | disposition home or self-care (01) ==
PROVIDERS: Emergency Provider Physician Assistant; PCP Nurse Practitioner
DX: R07.9 Chest pain, unspecified (principal); Z79.01 Long term (current) use of anticoagulants; F17.210 Nicotine dependence, cigarettes, uncomplicated
CPT/HCPCS: 71045; 80053; 81001; 84484; 85025; 85378; 85610; 85730; 93005; 93931; 96374; 99285; J1885

== ENCOUNTER → 2024-04-26 16:00 | Outpatient (BNVA) | payer MEDICAID, SELFPAY | PROVIDERS: PCP Nurse Practitioner; Visit Provider Family Medicine | DX: R05.9 Cough, unspecified (principal); J44.9 Chronic obstructive pulmonary disease, unspecified | CPT/HCPCS: 87400; 87426 ==

== ENCOUNTER 2024-05-03 12:55 | Outpatient (CLI) | payer MEDICAID, SELFPAY ==
--- NOTE | 2024-05-03 12:59 | XR_ITS ---
WS: [id number] CHEST 2 VIEWS HISTORY: R05.9 - Cough, unspecified COMPARISON: 01/08/2024 Lungs: Mild pulmonary hyperinflation. Stable granuloma central LEFT lung. No mass or pneumonia. Cardiac size: Normal. Mediastinum/Aorta: Normal mediastinum. Bones: Normal. XR/XR chest 2V* [id number] IMPRESSION: Mild pulmonary hyperinflation. Otherwise negative.
== END 2024-05-03 12:56 | disposition home or self-care (01) ==
LOC: RAD 12:57
PROVIDERS: PCP Nurse Practitioner; Visit Provider Family Medicine
DX: R05.9 Cough, unspecified (principal)
CPT/HCPCS: 71046

== ENCOUNTER → 2025-02-01 13:15 | Outpatient (BNVA) | payer MEDICAID, SELFPAY | PROVIDERS: Visit Provider Nurse Practitioner Family | DX: J02.9 Acute pharyngitis, unspecified (principal) | CPT/HCPCS: 87071; 87880 ==

== ENCOUNTER → 2025-02-28 15:23 | Outpatient (BNVA) | payer MEDICAID, SELFPAY | PROVIDERS: PCP Nurse Practitioner Family; Visit Provider Nurse Practitioner Family | DX: J02.9 Acute pharyngitis, unspecified (principal) | CPT/HCPCS: 87071; 87880 ==

== ENCOUNTER → 2025-03-07 15:52 | Outpatient (BNVA) | payer MEDICAID, SELFPAY | PROVIDERS: PCP Nurse Practitioner Family; Visit Provider Nurse Practitioner Family | DX: J02.9 Acute pharyngitis, unspecified (principal); J44.1 Chronic obstructive pulmonary disease with (acute) exacerbation | CPT/HCPCS: 87070 ==

== ENCOUNTER → 2025-03-13 16:18 | Outpatient (BNVA) | payer MEDICAID, SELFPAY | PROVIDERS: PCP Nurse Practitioner Family; Visit Provider Nurse Practitioner Family | DX: R07.0 Pain in throat (principal) | CPT/HCPCS: 80053; 84443; 85025 ==

== ENCOUNTER 2025-04-25 14:17 | Outpatient (CLI) | payer MEDICAID, SELFPAY ==
--- NOTE | 2025-04-25 14:24 | XR_ITS ---
WS: [id number] Cervical spine, 3 views, 04/25/2025 Clinical Data: M54.2 - Cervicalgia Comparison: Cervical spine, 06/03/2017 Findings: No compression fractures are seen. The disc heights are normal. There is no prevertebral soft tissue swelling. The odontoid is unremarkable. The soft tissues of the neck and the lung apices are normal. XR/XR cervical spine 3V* [id number] Impression: Negative cervical spine.
== END 2025-04-25 14:18 | disposition home or self-care (01) ==
LOC: RAD 14:21
PROVIDERS: PCP Nurse Practitioner Family; Visit Provider Nurse Practitioner Family
DX: M54.2 Cervicalgia (principal); G89.29 Other chronic pain
CPT/HCPCS: 72040

== ENCOUNTER → 2025-05-24 16:51 | Outpatient (BNVA) | payer MEDICAID, SELFPAY | PROVIDERS: PCP Nurse Practitioner Family; Visit Provider Internal Medicine | DX: J44.89 Other specified chronic obstructive pulmonary disease (principal); T78.49XA Other allergy, initial encounter; F17.210 Nicotine dependence, cigarettes, uncomplicated | CPT/HCPCS: 36415; 85025; 86003 ==

== ENCOUNTER 2025-06-02 13:06 | Outpatient (CLI) | payer MEDICAID, SELFPAY ==
--- NOTE | 2025-06-02 13:11 | CTR_ITS ---
PROCEDURE INFORMATION: Exam: CT Neck With Contrast Exam date and time: 06/02/2025 1:28 PM Age: 40 years old Clinical indication: Other: Chronic laryngitis TECHNIQUE: Imaging protocol: Computed tomography of the neck with contrast. Radiation optimization: All CT scans at this facility use at least one of these dose optimization techniques: automated exposure control; mA and/or kV adjustment per patient size (includes targeted exams where dose is matched to clinical indication); or iterative reconstruction. Contrast material: OMNI 350; Contrast volume: 100 ml; Contrast route: INTRAVENOUS (IV); COMPARISON: CR XR cervical spine 3V* [id number] 04/25/2025 2:30 PM RADIATION DOSE METRICS: Total DLP (mGy-cm): 132.97 FINDINGS: Brain: Visualized portion of the brain appears unremarkable. Paranasal sinuses: Visualized paranasal sinuses are essentially clear. Mastoid air cells: Mastoid air cells are clear. Salivary glands: Major salivary glands appear symmetric. Pharynx: Posterior nasopharyngeal soft tissues appear unremarkable. Heterogeneous appearance of the palatine tonsils. No mass or abscess. Parapharyngeal fat planes are symmetric. Piriform sinus and vallecula are patent. No mass or nodularity. Larynx: The epiglottis appears normal. Larynx appears unremarkable. Vocal cords appear relatively symmetric. No suspicious mass. Thyroid: Thyroid gland appears unremarkable. Trachea: Airway is widely patent. Lungs: There are a few scattered areas of paraseptal emphysematous change of the right and left lung apex. Please correlate with any prior history of smoking. No suspicious pulmonary nodule or mass within the visualized portion of the right and left upper lung. Mediastinal space: Minimal soft tissue fullness within the anterior superior mediastinum. This is not fully imaged. There are no enlarged pretracheal or paratracheal lymph nodes. Lymph nodes: There are no enlarged or suspicious cervical chain lymph nodes. Vasculature: Visualized portion of the aortic arch appears unremarkable. Carotid arteries are widely patent. Vertebral arteries are patent. Bones/joints: The thyroid cartilage and cricoid cartilage appear intact. Skull base is intact. Straightening of the cervical vertebral bodies. Mild disc space narrowing and degenerative endplate change at C6-C7. [id number] left foraminal narrowing at C6-C7 secondary to uncovertebral hypertrophy and bone spurring. No fracture or suspicious bone lesion. No areas of severe central spinal canal stenosis. Soft tissues: No neck mass or fluid collection. CT/CT neck w con* [id number] IMPRESSION: 1. No acute findings within the neck. No suspicious neck mass or fluid collection. No suspicious cervical chain lymphadenopathy. 2. Heterogeneous appearance of the palatine tonsils is somewhat nonspecific. There is no focal mass or fluid collection. No abscess. 3. Larynx appears unremarkable. Vocal cords appear symmetric. No focal mass or abnormal enhancement identified. The airway is widely patent. Given patient's history, ENT consultation with direct visualization of the vocal cords is recommended. 4. There are a few scattered areas of paraseptal emphysematous change of the right and left lung apex. Please correlate with any prior history of smoking. No suspicious pulmonary nodule or mass within the visualized portion of the right and left upper lung. 5. Partial visualization of an area of soft tissue fullness within the anterior superior mediastinum. This is not completely imaged. Findings could correspond to remnant of thymus or lymphadenopathy. Follow-up CT scan of the chest should be considered for full evaluation.
[2025-06-02] MEDS: iohexol 350 mg/mL 500 mL Btl (per mL) IV (13:14)
== END 2025-06-02 13:07 | disposition home or self-care (01) ==
LOC: RAD 13:08
PROVIDERS: Absent Provider Nurse Practitioner Family; PCP Nurse Practitioner Family; Visit Provider Otolaryngology
DX: J37.0 Chronic laryngitis (principal); R07.0 Pain in throat; R09.82 Postnasal drip; K21.9 Gastro-esophageal reflux disease without esophagitis; J43.8 Other emphysema; M50.323 Other cervical disc degeneration at C6-C7 level; M48.02 Spinal stenosis, cervical region; M99.61 Osseous and subluxation stenosis of intervertebral foramina of cervical region
CPT/HCPCS: 70491